=== PATIENT | female | born 1950 | race Caucasian/White ===

== ENCOUNTER 2017-02-09 22:46 | Inpatient (IN) | payer OTHER ==
[~2017-02-09] VITALS: Ht 147.3 cm; Wt 103.5 kg
--- NOTE | 2017-02-09 22:51 | History and Physical ---
History & Physical Date & Time of Service: Feb 09, 2017 at 22:51 . Chief Complaint: swelling left leg . Primary Care Physician: No Doctor, Assigned . History of Present Illness Source: patient, clinic records, hospital records 62-year-old female followed by Dr. Myrick. History of pulmonary embolism in 2013 associated with a prolonged illness at [facility] with peritonitis/sepsis secondary to perforated gastric ulcer. IVC filter was placed. Subsequently placed on warfarin Warfarin discontinued about 2 months ago because of concern about poor risk. 2 days prior to admission patient developed swelling of her left leg. She was evaluated in the ED at [facility] and thought to have a cellulitis. Antibiotics prescribed, but patient had not filled. Swelling of the left lower extremity worsened and she was seen in the ED at [facility] earlier today. Experiencing some discomfort of the leg, but not severe pain. She was found to have extensive DVT in the left lower extremity. Also found to have acute kidney injury. Referred to [facility] for further evaluation and management. . Past Medical/Surgical History Chronic and Resolved Medical Problems: (1) BMI 40.0-44.9, adult Status: Chronic (2) Chronic kidney disease (CKD), stage III (moderate) Status: Chronic (3) Degenerative arthritis of knee Status: Chronic (4) Dyslipidemia Status: Chronic (5) History of peritonitis Permanent Comment: [place] [facility], abscess Status: Chronic (6) Hypertension Status: Chronic (7) Hypothyroidism Status: Chronic (8) Pulmonary embolism Permanent Comment: 2013 during ICU illness Status: Chronic Surgical Problems: (1) Ileostomy status Status: Chronic (2) Status post exploratory laparotomy Permanent Comment: [facility] perforated gastric ulcer Status: Chronic (3) Status post insertion of inferior vena caval filter Permanent Comment: 2013 Status: Chronic . Family History FATHER Heart disease MOTHER Thyroid disease SON Cancer SON Stroke Social History Smoking Status: Never Smoker Alcohol Use: none Immunizations History of Influenza Vaccine: Yes Allergies Coded Allergies: Meperidine (Verified Allergy, Unknown, unknown, 02/10/17) Home Medications Scheduled Atorvastatin (Lipitor), 10 MG PO DAILY Buspirone Hcl (Buspirone Hcl), 10 MG PO TID Duloxetine Hcl (Cymbalta), 60 MG PO DAILY Ergocalciferol (Vitamin D 99761 Unit), 50,000 UNIT PO WK Fluticasone Propionate (Nasal) (Flonase Allergy Relief), 1 SPRAY NA DAILY Furosemide (Lasix), 40 MG PO DAILY Gabapentin (Neurontin), 0 PO UD Levothyroxine Sodium (Levothyroxine Sodium), 100 MCG PO DAILY Mirabegron (Myrbetriq Er), 25 MG PO DAILY Pantoprazole (Protonix), 40 MG PO BID Ranitidine Hcl (Zantac), 150 MG PO BID Scheduled PRN Acetaminophen Tab (Tylenol), 325 MG PO Q4 PRN for PRN for mild pain Loratadine (Bulk) (Loratadine), 10 MG PO DAILY PRN for as needed for congestion Lorazepam (Ativan), 0.5 MG PO DAILY PRN for Anxiety Ondansetron Hcl (Zofran), 8 MG PO TID PRN for Nausea Propranolol (Inderal), 10 MG PO BID PRN for Anxiety Tramadol (Ultram), 50 MG PO Q6H PRN for Pain Miscellaneous Medications Mometasone Furoate (Inhalation (Asmanex Hfa), INH Review of Systems Constitutional: No fever, No weight loss Eyes: No worsening of vision, No diplopia ENT: No nasal symptoms, No sore throat Respiratory: + dyspnea on exertion (chronic, unchanged), No cough Cardiovascular: + edema, No chest pain Abdomen: + problem reported (ileostomy), No pain, No nausea, No vomiting, No GI bleeding Musculoskeletal: + joint pain Genitourinary - Female: + urinary urgency, No dysuria, No hematuria Neurologic: + problem reported (occasional headache; ambulates with cane or walker- no falls) Endocrine: No excessive thirst, No excessive urination Hematologic / Lymphatic: + abnormal bleeding/bruising Integumentary: No new/changing skin lesions Physical Exam General Appearance: no apparent distress, + obese Head: normocephalic, atraumatic Eyes: PERRL, EOMI, sclerae normal (conjunctivae pink) ENT: hearing grossly normal, pharynx normal, + pertinent finding (dentition poor) Neck: supple, no adenopathy, thyroid normal, no JVD, trachea midline Respiratory/Chest: lungs clear, no respiratory distress, no accessory muscle use Cardiovascular: regular rate, rhythm, no edema, no JVD, no murmur, + abnormal peripheral pulses (diminished), + pertinent finding (1+ pretibial edema RLE, 3-4 + pretibial edema LLE; capillary refill right toes ~ 2 sec, left otes ~ 3 sec) Abdomen/GI: normal bowel sounds, non tender, soft, no organomegaly (exam limited), no pulsatile mass Extremities/Musculoskelatal: + pertinent finding (marked swelling of LLE with phlegmasia cerulea) Neurologic/Psych: insurance claim representative II-XII nml as tested (PERRL, EOMI; no facial palsy; no dysarthria), no motor/sensory deficits (motor exam limited, but grossly intact) , alert, normal mood/affect, normal reflexes (plantar reflexes downgoing), oriented x 3, + abnormal reflexes (patellar reflexes 1/2 bilat) Skin: warm/dry Lymphatic: no adenopathy (cervical) Diagnostics Laboratory Results Item Value Date Time Hemoglobin 11.6 g/dL L 02/09/172319 Hematocrit 35.6 % L 02/09/172319 White Blood Count 15.96 K/uL H 02/09/172319 Platelet Count 135 K/uL 02/09/172319 Prothrombin Time 10.7 SECONDS 02/09/172319 Prothromb Time International Ratio 1.0 02/09/172319 Activated Partial Thromboplast Time 24.3 SECONDS 02/09/172319 Partial Thromboplastin Ratio 0.9 02/09/172319 Sodium Level 136 mmol/L 02/09/172319 Potassium Level 4.2 mmol/L 02/09/172319 Chloride Level 103 mmol/L 02/09/17 232 Carbon Dioxide Level 20 mmol/L L 02/09/172319 Anion Gap 13.0 mmol/L H 02/09/17 232 Blood Urea Nitrogen 65 mg/dl H 02/09/17 2320 Creatinine 3.00 mg/dl H 02/09/17 232 Random Glucose 151 mg/dl H 02/09/17 232 Calcium Level 8.8 mg/dl 02/09/17 232 Magnesium Level 3.0 mg/dl H 02/09/17 232 Total Bilirubin 0.3 mg/dl 02/09/17 232 Aspartate Amino Transf (AST/SGOT) 11 U/L L 02/09/17 232 Alanine Aminotransferase (ALT/SGPT) 15 U/L 02/09/17 2320 Alkaline Phosphatase 115 U/L 02/09/17 2320 Total Protein 6.9 gm/dl 02/09/17 2320 Albumin 3.1 gm/dl L 02/09/17 2320 Globulin 3.8 gm/dl 02/09/17 2320 Diagnostic Radiology Venous duplex left lower extremity @ [facility]- extensive DVT. . Impression Assessment and Plan EXTENSIVE DVT LEFT LOWER EXTREMITY Prior history of DVT LLE and pulmonary embolism in setting of acute illness / ICU hospitalization in 2013. IVC filter placed. Subsequently placed on warfarin, but it was stopped about 2 months ago due to fall risk. Now with extensive swelling and discoloration of LLE, but no severe pain. Venous duplex showed extensive DVT. Initial therapy with IV heparin. Probably best to resume warfarin therapy. Patient was falling earlier in the year, but no falls now for several months. May possibly benefit from thrombolytic therapy- consult Vascular Surgery. ACUTE KIDNEY INJURY History CKD III. Serum creatinine now 3, compared to baseline of 1.4 on 12/03/16. Etiology of acute kidney injury uncertain. Check UA, FE Na, renal us, renal vein / IVC duplex. Takes furosemide PRN for edema- hold for now. Avoid potential nephrotoxins when able. Consult Nephrology. UTI UA in [facility] ED showed WBC's and bacteria. WBC elevated, possibly due to DVT. Afebrile. No dysuria or hematuria. Check repeat UA. Check urine cultures results from [facility] in 2-3 days. Will Rx with piperacillin / tazobactam pending more data. HISTORY PUD Continue ranitidine. HYPOTHYROIDISM Continue levothyroxine. VTE PROPHYLAXIS IV heparin for acute DVT. RESUSCITATION STATUS Discussed with patient. No living will. Full code. DISPOSITION Admitted to Telemetry Unit. Discharge disposition to be determined. Family Medicine follow-up with Dr. Myrick. . VTE Prophylaxis VTE Risk Assessment Done? Y/N: Yes Risk Level: High Given or contraindicated: Other Anticoagulation (IV heparin)
[2017-02-09 22:53] VITALS: BP 157/65; PULSE 83; TEMP 36.7; Ht 147.3 cm; Wt 103.5 kg
[2017-02-09] MEDS ORDERED: ATOR10TA88 PO (23:38)
[2017-02-09] MEDS ORDERED: PANT40TA PO (23:38)
[2017-02-09] MEDS ORDERED: MIRA100T PO (23:38)
[2017-02-09] MEDS ORDERED: LORA-741 PO (23:38)
[2017-02-09] MEDS ORDERED: LEVO100T7 PO (23:38)
[2017-02-09] MEDS ORDERED: MOME1AER5 INH (23:38)
[2017-02-09] MEDS ORDERED: LORAPOW16 PO (23:38)
[2017-02-09] MEDS ORDERED: DULO60CA44 PO (23:38)
[2017-02-09] MEDS ORDERED: ONDA8TAB6 PO (23:38)
[2017-02-09] MEDS ORDERED: PROP10TA7 PO (23:38)
[2017-02-09] MEDS ORDERED: GABA-112 PO (23:38)
[2017-02-09] MEDS ORDERED: FRS/40 PO (23:38)
[2017-02-09] MEDS ORDERED: BUSP-8 PO (23:38)
[2017-02-09] MEDS ORDERED: ERGO1TAB12 PO (23:38)
[2017-02-09] MEDS ORDERED: RANI150T3 PO (23:38)
[2017-02-09] MEDS ORDERED: FLUT0.15 (23:38)
[2017-02-09] MEDS ORDERED: ACET325T96 PO (23:38)
[2017-02-09] MEDS ORDERED: TRAM-10 PO (23:38)
[2017-02-09 23:39] LABS: HEMATOCRIT 35.6 % (37-47); MEAN CELL VOLUME 90.6 fL (80-100); MEAN CORPUSCULAR HEMOGLOBIN 29.5 pg (25-34); MEAN CORPUSCULAR HGB CONC 32.6 g/dl (32-36); MEAN PLATELET VOLUME 10.2 fL (7.4-10.4); PLATELET COUNT 135 K/uL (130-400); RED BLOOD COUNT 3.93 M/uL (4.2-5.4); WHITE BLOOD COUNT 15.96 K/uL (4.8-10.8)
[2017-02-09 23:48] LABS: PARTIAL THROMBOPLASTIN RATIO 0.9; PROTHROMBIN TIME (PATIENT) 10.7 SECONDS (9.0-12.0)
[2017-02-09 23:55] LABS: BUN/CREATININE RATIO 21.5 (10-20); CALCIUM 8.8 mg/dl (8.5-10.1); POTASSIUM 4.2 mmol/L (3.5-5.1)
[2017-02-09 23:58] LABS: ALB/GLOB RATIO 0.8 (0.9-2)
[2017-02-10] MEDS ORDERED: ERGO500037 PO (00:06)
[2017-02-10] MEDS ORDERED: HEPARIN IV BOLUS 5,000 UNIT in SYRINGE 0 ML IV ONE (02:15)
[2017-02-10] MEDS: HEPARIN 25,000 UNIT/500ML D5W 500 ML IV PRN (02:50)
[2017-02-10] MEDS: TRAMADOL HCL 50 MG TAB PO PRN ×2 (03:37→12:08)
[2017-02-10 04:17] VITALS: BP 146/79; PULSE 72; TEMP 36.5; O2SAT 96
[2017-02-10] MEDS: LEVOTHYROXINE 100 MCG TAB PO SCH (05:51)
[2017-02-10 07:35] VITALS: BP 133/75; PULSE 84; TEMP 36.2; O2SAT 97
[2017-02-10] MEDS: FLUTICASONE PROPIONATE NA SPR 16 GM BTL SCH (09:00)
[2017-02-10] MEDS: DULOXETINE HCL 60 MG CAP PO SCH (09:04)
[2017-02-10] MEDS: ATORVASTATIN 10 MG TAB PO SCH (09:04)
[2017-02-10] MEDS: MIRABEGRON ER 25 MG TAB PO SCH (09:05)
[2017-02-10] MEDS: GABAPENTIN 100 MG CAP PO SCH ×3 (09:05→20:39)
[2017-02-10] MEDS: PANTOprazole SOD 40 MG TAB PO SCH ×2 (09:06→20:39)
[2017-02-10] MEDS: RANITIDINE HCL 150 MG TAB PO SCH ×2 (09:06→20:39)
[2017-02-10 09:07] LABS: HEMATOCRIT 34.1 % (37-47); MEAN CELL VOLUME 90.7 fL (80-100); MEAN CORPUSCULAR HEMOGLOBIN 29.5 pg (25-34); MEAN CORPUSCULAR HGB CONC 32.6 g/dl (32-36); MEAN PLATELET VOLUME 10.1 fL (7.4-10.4); PLATELET COUNT 138 K/uL (130-400); RED BLOOD COUNT 3.76 M/uL (4.2-5.4); WHITE BLOOD COUNT 14.04 K/uL (4.8-10.8)
[2017-02-10] MEDS: LORAZEPAM 0.5 MG TAB PO PRN (09:08)
[2017-02-10 09:21] LABS: INR 1.1 (0.9-1.1); PROTHROMBIN TIME (PATIENT) 11.3 SECONDS (9.0-12.0)
[2017-02-10 09:31] LABS: PARTIAL THROMBOPLASTIN RATIO 2.6
[2017-02-10] MEDS ORDERED: PIPERACILL/TAZOBAC CONSULT ACTIVE PRN (09:45)
[2017-02-10 09:52] LABS: BUN/CREATININE RATIO 22.4 (10-20); CALCIUM 8.5 mg/dl (8.5-10.1); CREATININE 2.9 mg/dl (0.60-1.20); POTASSIUM 3.5 mmol/L (3.5-5.1)
[2017-02-10] MEDS ORDERED: PIPERACILL/TAZOBAC IV 4.5 GM in DEXTROSE 5% 100ML IV ONE (10:00)
[2017-02-10 11:24] VITALS: BP 151/83; PULSE 81; TEMP 36.8; O2SAT 98
[2017-02-10] MEDS: SODIUM CHLORIDE 0.9% 1000ML 1,000 ML IV SCH ×2 (11:25→19:33)
--- NOTE | 2017-02-10 11:28 | DIAGNOSTIC IMAGING REPORT ---
RENAL ULTRASOUND HISTORY: acute kidney injury COMPARISON: None. FINDINGS: Right kidney: 9.3 cm. No hydronephrosis. Moderate severe cortical atrophy. Normal cortical echogenicity. Left kidney: 9.8 cm. No hydronephrosis. Moderate severe cortical atrophy. Normal cortical echogenicity. Bladder: Bladder is decompressed by Johnston catheter. IMPRESSION: 1. No hydronephrosis. 2. Moderate to severe bilateral cortical renal atrophy. Electronically signed by: Sarthak Gee M.D. 02/10/2017 11:27 AM Dictated Date/Time: 02/10/2017 11:24 AM
--- NOTE | 2017-02-10 11:39 | NEPHROLOGY CONSULTATION ---
DATE OF CONSULTATION: 02/10/2017 ATTENDING OF RECORD: Dr. Owens. REASON FOR CONSULTATION: FARZANEH. HISTORY OF PRESENT ILLNESS: This is a 66-year-old female who follows in [place]. The patient's baseline creatinine is 1.4, last checked December 03 of this year, who has no diabetes and was on blood pressure medications in the past, but were stopped secondary to lightheadedness. The patient had a significant hospitalization in 2013, where she had a perforated gastric ulcer, pulmonary embolus and an IVC filter was placed and then started on long-term Coumadin. The patient though is not stable on her feet and the Coumadin was stopped about 2 months ago. The patient denies any smoking. No prolonged trips. The patient about 2 days ago noticed worsening swelling in the leg with some worsening pain and found to have a blood clot in her leg and acute kidney injury with creatinine of 3. This morning, this is down to 2.9. Secondary as a consequence of peptic ulcer disease, the patient ended up with a colostomy and still has high output from a colostomy. The patient has been eating and drinking well. Denies taking any ibuprofen, Motrin or Aleve. She is not a diabetic. Not taking any blood pressure medications. No recent antibiotics or recent illnesses or infection. She has been eating and drinking well, but does present with worsening blood clot and elevated creatinine. The patient is currently on a heparin drip. She did urinate x2 and is incontinent of urine and urine is dark. REVIEW OF SYSTEMS: No fevers or chills. No significant weight loss or weight gain. Ambulates with a walker. No itching. No chest pain. No shortness of breath. No nausea or vomiting. Has a colostomy with normal outputs. States she is urinating the same amount. Does have a history of an overactive bladder. No lightheadedness. Does have some balance issues and a fall risk since she is walking with a walker and is complaining of some pain with her left leg with some swelling and coolness to touch. PAST MEDICAL HISTORY: CKD stage III with baseline creatinine of 1.4, hyperlipidemia, history of PE in the past with an IVC filter placed, a history of a perforated gastric ulcer with colostomy now, hypertension not on any blood pressure medications secondary to lightheadedness and fall risk, and hypothyroidism. PAST SURGICAL HISTORY: Colostomy, exploratory laparotomy for the perforated gastric ulcer, and IVC filter placement. FAMILY HISTORY: Significant for heart disease. SOCIAL HISTORY: No smoking, no alcohol, and no drugs. Lives at home. HOME MEDICATIONS: Significant for Lasix 40 mg a day. CURRENT MEDICATIONS: Zosyn as directed by pharmacy, Lipitor 10 mg daily, Cymbalta 60 mg daily, Neurontin 100 mg p.o. t.i.d., mirabegron 25 mg daily, Protonix 40 mg twice a day, Zantac 150 mg twice a day, BuSpar 10 mg 3 times daily, Synthroid 100 mcg daily, and heparin drip. PHYSICAL EXAMINATION: VITAL SIGNS: Temperature 36.2, pulse 84, respirations 19, blood pressure 133/75, and satting 97% on 2 liters. GENERAL: Awake, alert, and oriented x3, obese. EYES: No scleral icterus. ENT: Moist mucous membranes. NECK: Supple. PULMONARY: Clear to auscultation. CARDIAC: Regular rate and rhythm. ABDOMEN: Positive colostomy. Soft, nontender, and nondistended. EXTREMITIES: Mild edema in the right leg. Left leg cool to touch, discolored and bluish with +2 edema. NEUROLOGICALLY: Nonfocal. Walks with a walker. DERMATOLOGIC: No ulcers noted. LABORATORIES: White count 14, H&H 11 and 34, and platelet count 138. Sodium level is 134, potassium 3.5, chloride is 103, bicarb is 20, BUN 65, creatinine is 2.9, glucose 175, and calcium is 8.5. INR is 1.1. UA is pending. Urine culture is pending. ASSESSMENT AND PLAN: Acute kidney injury in the setting of an extensive deep venous thrombosis in the left leg. Question if the clot extends up to the renal supply. Vascular surgery has been consulted. May need thrombolysis. I would like to place a Johnston to better assess her I's and O's and start patient on normal saline at 125 mL an hour, monitor her volume status closely, looking for signs of fluid overload. The patient denies any NSAIDs. Blood pressure is stable with no signs of hypotension. No recent contrast. Hopefully, creatinine starts to improve with hydration. Currently on heparin and does have an IVC filter in place. We will check a renal ultrasound and renal vascular scan looking for obstruction of blood flow to the kidneys and once again have consulted vascular surgery. No indication for emergent dialysis at this time. Continue hydration and we will follow along. I appreciate the consultation. YAIMA
--- NOTE | 2017-02-10 11:45 | Surgery Consultation ---
Consultation Date of Service Feb 10, 2017. (Gabriella Meyer, KINGSLEY) Chief Complaint LLE extensive DVT (Gabriella Meyer, KINGSLEY) History of Present Illness The patient is a 66 year old female with hx of DVT and IVC filter insertion in 2013, admitted currently with FARZANEH and extensive LLE DVT, seen in consultation today for LLE DVT and possible thrombolytics. Pt states she developed a DVT in unknown extremity in 2013 after having surgery and had filter insertion d/t unsafe to be on anticoagulation at the time. Was subsequently started on coumadin, which was stopped a few months ago d/t instability at home and falls. States she has home nurses who told her to go to hospital to be checked d/t the edema in LLE. Admits mild burning/aching discomfort in LLE. Denies numbness or pain in toes. Denies WEBBER, fever, chills, chest pain, SOB, abd pain, N/V, rest pain, claudication other complaints. Per reports, pt with extensive DVT of LLE, pt states she was told it is in her groin. Pt states she has known about some mild 'kidney problems," but has never seen a chicken hanger. (Gabriella Meyer, KINGSLEY) Vitals Vital Signs Past 12 Hours Date Time Temp Pulse Resp B/P (MAP) Pulse Ox O2 Delivery O2 Flow Rate FiO2 02/10/17 11:24 36.8 81 18 151/83 (105) 98 2.0 02/10/17 08:00 Nasal Cannula 2.0 02/10/17 07:35 36.2 84 19 133/75 (94) 97 Nasal Cannula 2.0 02/10/17 04:17 36.5 72 20 146/79 (101) 96 Nasal Cannula 2.0 02/10/17 04:00 Room Air 02/10/17 00:00 Room Air (Gabriella Meyer, KINGSLEY) Allergies Coded Allergies: Meperidine (Verified Allergy, Unknown, unknown, 02/10/17) Home Medications Scheduled Atorvastatin (Lipitor), 10 MG PO DAILY Buspirone Hcl (Buspirone Hcl), 10 MG PO TID Duloxetine Hcl (Cymbalta), 60 MG PO DAILY Ergocalciferol (Vitamin D 16262 Unit), 50,000 UNIT PO WK Fluticasone Propionate (Nasal) (Flonase Allergy Relief), 1 SPRAY NA DAILY Furosemide (Lasix), 40 MG PO DAILY Gabapentin (Neurontin), 0 PO UD Levothyroxine Sodium (Levothyroxine Sodium), 100 MCG PO DAILY Mirabegron (Myrbetriq Er), 25 MG PO DAILY Pantoprazole (Protonix), 40 MG PO BID Ranitidine Hcl (Zantac), 150 MG PO BID Scheduled PRN Acetaminophen Tab (Tylenol), 325 MG PO Q4 PRN for PRN for mild pain Loratadine (Bulk) (Loratadine), 10 MG PO DAILY PRN for as needed for congestion Lorazepam (Ativan), 0.5 MG PO DAILY PRN for Anxiety Ondansetron Hcl (Zofran), 8 MG PO TID PRN for Nausea Propranolol (Inderal), 10 MG PO BID PRN for Anxiety Tramadol (Ultram), 50 MG PO Q6H PRN for Pain Miscellaneous Medications Mometasone Furoate (Inhalation (Asmanex Hfa), INH Problem List Medical Problems: (1) BMI 40.0-44.9, adult (2) Chronic kidney disease (CKD), stage III (moderate) (3) Degenerative arthritis of knee (4) Dyslipidemia (5) History of peritonitis (6) Hypertension (7) Hypothyroidism (8) Pulmonary embolism Surgical Problems: (1) Ileostomy status (2) Status post exploratory laparotomy (3) Status post insertion of inferior vena caval filter (Gabriella Meyer PA-C) Surgical / Medical History Hx Cardiac Surgery: No Hx Abdominal Surgery: Yes (Colostomy r/t ruptured gastric ulcer) Hx Cancer Surgery: No Hx Thoracic Surgery: No Hx Orthopedic: No Hx Urinary Tract Surgery: No Past Medical/Surgical History: High Cholesterol, Hypertension, Kidney Disease (Gabriella Meyer, BENEDICTC) Family History Cancer SON Heart disease FATHER Stroke SON Thyroid disease MOTHER (Gabriella Meyer PA-C) Cancer SON Heart disease FATHER Stroke SON Thyroid disease MOTHER (Jayme Peoples M.D.) Social History Smoking Status: Never Smoker Hx Alcohol Use - Type & Amnt: No Hx Substance Use -Type & Amnt: No (Gabriella Meyer PA-C) Review of Systems Constitutional: No chills, No fever, No malaise Skin: + change in color Eyes: No visual changes ENMT: No sore throat Respiratory: No cough, No BUTLER, No hemoptysis, No short of breath Cardiovascular: + edema, No chest pain, No palpitations, No syncope, No intermittent claudication Gastrointestinal: No abdominal pain, No nausea, No vomiting Genitourinary - Female: No dysuria, No hematuria Musculoskeletal: No back pain Neurologic: No dizziness, No headache, No lethargy, No numbness, No tingling ( Gabriella Meyer PA-C) Physical Exam Constitutional: General Apperance: well-nourished, well-developed, obese Level of Distress: NAD, chronically ill Psychiatric: Mental Status: active & alert, normal mood, normal affect Orientation: oriented except where noted, to time, to place, to person Memory: recent memory normal, remote memory normal Head: normocephalic, atraumatic Eyes: EOM: EOMI ENMT: normal ENT inspection, hearing grossly normal Neck: supple, trachea midline Lungs: Respiratory effort: no dyspnea Auscultation: no rales/crackles, no rhonchi, decreased breath sounds Cardiovascular: Apical Impulse: not displaced Heart Auscultation: RRR, no rubs, no gallops Peripheral Pulses: Pulses: full and equal, in all extremities except if noted Bruits: none appreciated Carotid Pulse: normal on the left, normal on the right Brachial Pulses: normal on the left, normal on the right Femoral Pulse: normal on the left, normal on the right Posterior Tibialis Pulse: decreased on the right, pertinent finding ( biphasic with doppler LLE) Dorsalis Pedis Pulse: decreased on the right, pertinent finding (biphasic with doppler LLE. brisk cap refill) Abdomen: Bowel Sounds: normal Inspection & Palpation: soft, non-distended, no tenderness, guarding & rebound Musculoskeletal: normal strength (5/5 throughout), normal tone Extremities: Upper Right: no cyanosis, no edema, no varicosities Upper Left: no cyanosis, no edema, no varicosities Lower Right: no cyanosis, no varicosities, edema (mild) Lower Left: no cyanosis, no palpable cord, edema (+4 pitting lower leg, softer edema thigh. Entire leg with purplish tint compared to RLE. temp normal, but toes cool. + brisk cap refill) Neurologic: Cranial Nerves: grossly intact Sensation: grossly intact (Gabriella Meyer, PA-C) Assessment and Plan ASSESSMENT and PLAN: DVT LLE Hx of IVC filter insertion Pt discussed with Dr Peoples, recommend anticoagulation if safe per medicine. Does not recommend thrombolysis at this time, and D/T acute kidney injury, unable to perform venography at present. Please call if needed. (Gabriella Meyer, PA-C) Patient was seen, examined, and chart reviewed. Agree with exam and treatment plan of the Vascular PA. Thank you very much for letting me participate in the care of this patient. (Jayme Peoples M.D.)
--- NOTE | 2017-02-10 12:19 | DIAGNOSTIC IMAGING REPORT ---
DUPLEX AORTA/IVC/ILIACS LTD CLINICAL HISTORY: 66 years-old Female presenting with DVT LLE, IVC filter, acute kidney injury. TECHNIQUE: Real-time grayscale ultrasound imaging of the inferior vena cava was performed. Color and spectral Doppler were also performed. COMPARISON: None. FINDINGS: The inferior vena cava is patent along the visualized portions. The IVC has a peak velocity of 32 cm/s in the upper portion, 21 cm/s in the midportion where there is an inferior vena cava filter, and is not visualized in the distal portion. The right renal vein is patent with a peak velocity of 24 cm/s. The left renal vein is also patent with a peak velocity of 28 cm/s. The examination was limited due to bowel gas. IMPRESSION: 1. IVC filter in place. IVC is patent at and above the level of the IVC filter. The distal IVC is poorly visualized due to bowel gas. Electronically signed by: Samuel Aguilar M.D. 02/10/2017 12:18 PM Dictated Date/Time: 02/10/2017 12:16 PM
--- NOTE | 2017-02-10 13:56 | DIAGNOSTIC IMAGING REPORT ---
CHEST ONE VIEW PORTABLE CLINICAL HISTORY: DVT LLE pain COMPARISON STUDY: No previous studies for comparison. FINDINGS: The bones soft tissues and hemidiaphragms are normal. The cardiomediastinal silhouette is normal. The lungs are clear. The pulmonary vasculature is normal. Mediastinal fullness superiorly felt to be secondary to the AP semierect film technique IMPRESSION: No acute process. The above report was generated using voice recognition software. It may contain grammatical, syntax or spelling errors. Electronically signed by: Santos Herrera M.D. 02/10/2017 1:55 PM Dictated Date/Time: 02/10/2017 1:54 PM
[2017-02-10 14:28] LABS: URINE APPEARANCE CLOUDY (CLEAR); URINE BILIRUBIN NEG (NEG); URINE COLOR YELLOW; URINE EPITHELIAL CELL AUTO >30 /lpf (0-5); URINE NITRITE NEG (NEG); URINE PH 5.5 (4.5-7.5); UROBILINOGEN NEG (NEG)
[2017-02-10 14:33] LABS: MANUAL MICROSCOPIC REQUIRED? NO; REVIEW REQ? YES
[2017-02-10 14:53] LABS: URINE PATH CASTS 1-5 GRANULAR CASTS /lpf (0)
[2017-02-10 15:19] VITALS: BP 159/69; PULSE 84; TEMP 36.7; O2SAT 97
[2017-02-10] MEDS: HYDROmorphone INJ 1 MG/ML SYR IV PRN (16:24)
--- NOTE | 2017-02-10 17:27 | Progress Note ---
Internal Med Progress Note Date of Service: Feb 10, 2017. Provider Documentation: SUBJECTIVE: The patient was seen and examined Admitted with left leg swelling and pain Denies any CP,Palpitation,SOB OBJECTIVE: Vital Signs-as noted below Exam: General-No distress Eyes-Normal ENT-Normal Neck-supple Lungs-Clear to ausucltate bilaterally Heart-Regular,no murmur appreciated Abdomen-Benign,no masses,bowel sound present Extremities-Bilateral Legs swelling,Left more than righ Left lower leg is bluish color but has palpable pulses Right Midshin has a small hematoma and that has been getting bigger Neuro-AAOx3 Lab data as noted below. ASSESSMENT & PLAN: EXTENSIVE DVT LEFT LOWER EXTREMITY Prior history of DVT LLE and pulmonary embolism in setting of acute illness / ICU hospitalization in 2013. IVC filter placed at that time Subsequently placed on warfarin, but it was stopped about 2 months ago due to fall risk. Now with extensive swelling and discoloration of LLE, but no severe pain. Venous duplex showed extensive DVT. Initial therapy with IV heparin and will need to have Coumadin therapy Patient was falling earlier in the year, but no falls now for several months. Vascular Surgery consulted -appreciate input Dusky discoloration of the left lower extremity Not cold to touch Doppler exam showed good flow Vascular Surgery consulted-observe Right Mid Leg Hematoma Was like the size of a quarter and gradually [id number] Increasing Pain Area marked and Heparin is on hold Less chance of PE with the IVC filter Discussed with the patient Resume heparin later ACUTE KIDNEY INJURY History CKD III. Serum creatinine now 3, compared to baseline of 1.4 on 12/03/16. Etiology of acute kidney injury uncertain. Check UA, FE Na, renal us, renal vein / IVC duplex. Takes furosemide PRN for edema- on Hold now Avoid potential nephrotoxins when able. Consult Nephrology-appreciate Input . Possible UTI UA in [facility] ED showed WBC's and bacteria. Afebrile. No dysuria or hematuria. Check repeat UA. Check urine cultures results from [facility] in 2-3 days. Will Rx with piperacillin / tazobactam pending more data. HISTORY PUD Continue ranitidine. HYPOTHYROIDISM Continue levothyroxine. VTE PROPHYLAXIS IV heparin for acute DVT. RESUSCITATION STATUS Discussed with patient. No living will. Full code. DISPOSITION Admitted to Telemetry Unit. Discharge disposition to be determined. Family Medicine follow-up with Dr. Myrick. Vital Signs: Date Time Temp Pulse Resp B/P (MAP) Pulse Ox O2 Delivery O2 Flow Rate FiO2 02/10/17 15:19 36.7 84 20 159/69 (99) 97 Nasal Cannula 2.0 02/10/17 12:00 Nasal Cannula 2.0 02/10/17 11:24 36.8 81 18 151/83 (105) 98 2.0 02/10/17 08:00 Nasal Cannula 2.0 02/10/17 07:35 36.2 84 19 133/75 (94) 97 Nasal Cannula 2.0 02/10/17 04:17 36.5 72 20 146/79 (101) 96 Nasal Cannula 2.0 02/10/17 04:00 Room Air 02/10/17 00:00 Room Air 02/09/17 22:53 36.7 83 22 157/65 Nasal Cannula 2.0 Lab Results: Results Past 24 Hours Test 02/09/17 23:20 02/10/17 08:49 02/10/17 10:20 Range/Units White Blood Count 15.96 14.04 4.8-10.8 K/uL Red Blood Count 3.93 3.76 4.2-5.4 M/uL Hemoglobin 11.6 11.1 12.0-16.0 g/dL Hematocrit 35.6 34.1 37-47 % Mean Corpuscular Volume 90.6 90.7 80-100 fL Mean Corpuscular Hemoglobin 29.5 29.5 25-34 pg Mean Corpuscular Hemoglobin Concent 32.6 32.6 32-36 g/dl RDW Standard Deviation 49.7 50.2 36.4-46.3 fL RDW Coefficient of Variation 15.0 15.1 11.5-14.5 % Platelet Count 135 138 130-400 K/uL Mean Platelet Volume 10.2 10.1 7.4-10.4 fL Nucleated RBC Absolute Count (auto) 0.02 0.02 0-0 K/uL Nucleated Red Blood Cells % 0.1 0.2 % Prothrombin Time 10.7 11.3 9.0-12.0 SECONDS Prothromb Time International Ratio 1.0 1.1 0.9-1.1 Activated Partial Thromboplast Time 24.3 67.5 21.0-31.0 SECONDS Partial Thromboplastin Ratio 0.9 2.6 Sodium Level 136 134 136-145 mmol/L Potassium Level 4.2 3.5 3.5-5.1 mmol/L Chloride Level 103 103 98-107 mmol/L Carbon Dioxide Level 20 20 21-32 mmol/L Anion Gap 13.0 11.0 3-11 mmol/L Blood Urea Nitrogen 65 65 7-18 mg/dl Creatinine 3.00 2.90 0.60-1.20 mg/dl Est Creatinine Clear Calc Drug Dose 17.3 17.9 ml/min Estimated GFR () 17.8 18.5 Estimated GFR (Non- 15.3 16.0 BUN/Creatinine Ratio 21.5 22.4 10-20 Random Glucose 151 175 70-99 mg/dl Calcium Level 8.8 8.5 8.5-10.1 mg/dl Magnesium Level 3.0 1.8-2.4 mg/dl Total Bilirubin 0.3 0.2-1 mg/dl Aspartate Amino Transf (AST/SGOT) 11 15-37 U/L Alanine Aminotransferase (ALT/SGPT) 15 12-78 U/L Alkaline Phosphatase 115 45-117 U/L Total Protein 6.9 6.4-8.2 gm/dl Albumin 3.1 3.4-5.0 gm/dl Globulin 3.8 2.5-4.0 gm/dl Albumin/Globulin Ratio 0.8 0.9-2 Urine Color YELLOW Urine Appearance CLOUDY CLEAR Urine pH 5.5 4.5-7.5 Urine Specific [place] 1.020 1.000-1.030 Urine Protein 1+ NEG Urine Glucose (UA) NEG NEG Urine Ketones NEG NEG Urine Occult Blood 1+ NEG Urine Nitrite NEG NEG Urine Bilirubin NEG NEG Urine Urobilinogen NEG NEG Urine Leukocyte Esterase MODERATE NEG Urine WBC (Auto) >30 0-5 /hpf Urine RBC (Auto) 0-4 0-4 /hpf Urine Hyaline Casts (Auto) 5-10 0-5 /lpf Urine Epithelial Cells (Auto) >30 0-5 /lpf Urine Bacteria (Auto) NEG NEG Urine Renal Epithelial Cells 5-10 0-5 /lpf Urine Pathogenic Casts 1-5 GRANULAR CASTS 0 /lpf Urine Yeast (Auto) NONE PRSENT Urine Random Creatinine 160.0 mg/dl Urine Random Sodium 5 mEq/L Microbiology Results 02/10/17 Urine Culture, Ordered Pending
[2017-02-10 18:43] VITALS: BP 166/107; PULSE 96; TEMP 36.5; O2SAT 96
[2017-02-10] MEDS: PIPERACILL/TAZOBAC IV 4.5 GM in DEXTROSE 5% 100ML 100 ML IV SCH (20:39)
[2017-02-10 23:51] VITALS: BP 148/91; PULSE 87; TEMP 36.5; O2SAT 98
[2017-02-11] MEDS: ACETAMINOPHEN 500 MG TAB PO PRN ×2 (00:57→12:00)
[2017-02-11] MEDS: SODIUM CHLORIDE 0.9% 1000ML 1,000 ML IV SCH ×3 (03:39→18:52)
[2017-02-11 03:42] VITALS: BP 133/79; PULSE 78; TEMP 36.6; O2SAT 98
[2017-02-11] MEDS: LEVOTHYROXINE 100 MCG TAB PO SCH (06:19)
[2017-02-11 07:23] VITALS: BP 135/70; PULSE 90; TEMP 36.5; O2SAT 98
--- NOTE | 2017-02-11 08:55 | Nephrology Progress Note ---
Nephrology Progress Note Date of Service: Feb 11, 2017. Subjective 66 yo female seen for sarthak/dvt in the lower extremity. has walker catheter in place and urinating well with clear urine. pt with colostomy. pt feels her swelling in the left leg is better and able to move her foot better. on heparin drip. tolerating iv fluids. no sob. appetite is good. Objective Date Time Temp Pulse Resp B/P (MAP) Pulse Ox O2 Delivery O2 Flow Rate FiO2 02/11/17 07:23 36.5 90 14 135/70 (91) 98 02/11/17 04:00 Nasal Cannula 2.0 02/11/17 03:42 36.6 78 18 133/79 (97) 98 Nasal Cannula 2.0 02/11/17 00:00 Nasal Cannula 2.0 02/10/17 23:51 36.5 87 18 148/91 (110) 98 Nasal Cannula 2.0 02/10/17 20:00 Nasal Cannula 2.0 02/10/17 18:43 36.5 96 18 166/107 (126) 96 Nasal Cannula 2.0 02/10/17 16:00 Nasal Cannula 2.0 02/10/17 15:19 36.7 84 20 159/69 (99) 97 Nasal Cannula 2.0 02/10/17 12:00 Nasal Cannula 2.0 02/10/17 11:24 36.8 81 18 151/83 (105) 98 2.0 Physical Exam: General-aaox3 Eyes-no scleral icterus ENT-mmm Neck-supple Lungs-cta, very slight end expiratory wheeze on left base Heart-rrr Abdomen-bs+ s/nt/+colostomy Extremities-left foot warm, less blue, swelling improving, right leg wrapped from ruptured blister secondary to trauma Neuro-nonfocal Current Inpatient Medications Medications (Trade) Dose Ordered Sig/Rashid Route Start Time Stop Time Status Last Admin Dose Admin Heparin Sodium/ Dextrose 500 ml @ 23 mls/hr [id number] PRN IV 02/10/17 02:15 03/12/17 02:14 Future Hold 02/10/17 02:50 23 MLS/HR Atorvastatin Calcium (Lipitor Tab) 10 mg DAILY PO 02/10/17 09:00 03/12/17 08:59 02/10/17 09:04 10 MG Duloxetine HCl (Cymbalta Cap) 60 mg DAILY PO 02/10/17 09:00 03/12/17 08:59 02/10/17 09:04 60 MG Fluticasone Propionate (Flonase Nasal [place]) 1 sprays DAILY NA 02/10/17 09:00 03/12/17 08:59 Gabapentin (Neurontin Cap) 100 mg TID PO 02/10/17 09:00 03/12/17 08:59 02/10/17 20:39 100 MG Levothyroxine Sodium (Synthroid Tab) 100 mcg DAILYBB PO 02/10/17 06:00 03/12/17 05:59 02/11/17 06:19 100 MCG Lorazepam (Ativan Tab) 0.5 mg TID PRN PO 02/10/17 03:30 03/12/17 03:29 02/10/17 09:08 0.5 MG Mirabegron (Myrbetriq Er) 25 mg DAILY PO 02/10/17 09:00 03/12/17 08:59 02/10/17 09:05 25 MG Ondansetron HCl (Zofran Tab) 8 mg TID PRN PO 02/10/17 03:30 03/12/17 03:29 Pantoprazole Sodium (Protonix Tab) 40 mg BID PO 02/10/17 09:00 03/12/17 08:59 02/10/17 20:39 40 MG Ranitidine HCl (zANTac TAB) 150 mg BID PO 02/10/17 09:00 03/12/17 08:59 02/10/17 20:39 150 MG Tramadol HCl (Ultram Tab) 50 mg Q6H PRN PO 02/10/17 03:30 03/12/17 03:29 02/10/17 12:08 50 MG Buspirone HCl (Buspar Tab) 10 mg TID PO 02/10/17 09:00 03/12/17 08:59 02/10/17 20:39 10 MG Acetaminophen (Tylenol Tab) 1,000 mg Q8 PRN PO 02/10/17 03:30 03/12/17 03:29 02/11/17 00:57 1,000 MG Piperacillin Sod/ Tazobactam Sod 4.5 gm/Dextrose 120 ml @ 30 mls/hr Q12H IV 02/10/17 20:00 02/15/17 19:59 02/10/17 20:39 30 MLS/HR Piperacillin Sod/ Tazobactam Sod (Consult) 1 ea UD PRN N/A 02/10/17 09:45 03/12/17 09:44 Sodium Chloride 1,000 ml @ 125 mls/hr Q8H IV 02/10/17 10:00 03/12/17 09:59 02/11/17 03:39 125 MLS/HR Hydromorphone HCl (Dilaudid Inj) 1 mg Q6H PRN IV 02/10/17 16:00 02/24/17 15:59 02/10/17 16:24 1 MG Last 24 Hours Test 02/10/17 10:20 02/11/17 07:31 02/11/17 08:40 Urine Color YELLOW Urine Appearance CLOUDY Urine pH 5.5 Urine Specific [place] 1.020 Urine Protein 1+ Urine Glucose (UA) NEG Urine Ketones NEG Urine Occult Blood 1+ Urine Nitrite NEG Urine Bilirubin NEG Urine Urobilinogen NEG Urine Leukocyte Esterase MODERATE Urine WBC (Auto) >30 /hpf Urine RBC (Auto) 0-4 /hpf Urine Hyaline Casts (Auto) 5-10 /lpf Urine Epithelial Cells (Auto) >30 /lpf Urine Bacteria (Auto) NEG Urine Renal Epithelial Cells 5-10 /lpf Urine Pathogenic Casts 1-5 GRANULAR CASTS /lpf Urine Yeast (Auto) Urine Random Creatinine 160.0 mg/dl Urine Random Sodium 5 mEq/L Assessment & Plan [id number]-presented with dvt-renal us with signs of medical renal disease but no hydro-renal veins are patent. hoping creatinine improves today compared to yesterday and tolerating fluids well and urinating better. continue current iv fluids.
[2017-02-11] MEDS: FLUTICASONE PROPIONATE NA SPR 16 GM BTL SCH (09:00)
[2017-02-11] MEDS: PIPERACILL/TAZOBAC IV 4.5 GM in DEXTROSE 5% 100ML 100 ML IV SCH (09:09)
[2017-02-11] MEDS: DULOXETINE HCL 60 MG CAP PO SCH (09:10)
[2017-02-11] MEDS: ATORVASTATIN 10 MG TAB PO SCH (09:10)
[2017-02-11] MEDS: GABAPENTIN 100 MG CAP PO SCH ×3 (09:11→20:36)
[2017-02-11] MEDS: MIRABEGRON ER 25 MG TAB PO SCH (09:11)
[2017-02-11] MEDS: PANTOprazole SOD 40 MG TAB PO SCH ×2 (09:12→20:36)
[2017-02-11] MEDS: RANITIDINE HCL 150 MG TAB PO SCH ×2 (09:12→20:36)
[2017-02-11 09:26] LABS: PARTIAL THROMBOPLASTIN RATIO 0.7
[2017-02-11 09:47] LABS: BUN/CREATININE RATIO 23.1 (10-20); CALCIUM 8.1 mg/dl (8.5-10.1); CREATININE 2.3 mg/dl (0.60-1.20); POTASSIUM 3.8 mmol/L (3.5-5.1)
[2017-02-11] MEDS: HEPARIN 25,000 UNIT/500ML D5W 500 ML IV PRN ×2 (10:00→17:07)
[2017-02-11 11:22] VITALS: BP 155/81; PULSE 96; TEMP 36.7; O2SAT 97
--- NOTE | 2017-02-11 13:20 | Progress Note ---
Internal Med Progress Note Date of Service: Feb 11, 2017. Provider Documentation: SUBJECTIVE: The patient was seen and examined Admitted with left leg swelling and pain Denies any CP,Palpitation,SOB Has had the Hematoma over midshin on right ruptured yesterday The area was pressure bandaged and kept Heparin on hold No more bleeding OBJECTIVE: Vital Signs-as noted below Exam: General-No distress Eyes-Normal ENT-Normal Neck-supple Lungs-Clear to ausucltate bilaterally Heart-Regular,no murmur appreciated Abdomen-Benign,no masses,bowel sound present Extremities-Bilateral Legs swelling,Left more than right-swelling and discoloration are better on left side Ruptured hematoma over midshin-no more bleeding noted Neuro-AAOx3 Lab data as noted below. ASSESSMENT & PLAN: EXTENSIVE DVT LEFT LOWER EXTREMITY Prior history of DVT LLE and pulmonary embolism in setting of acute illness / ICU hospitalization in 2013. IVC filter placed at that time Subsequently placed on warfarin, but it was stopped about 2 months ago due to fall risk. Now with extensive swelling and discoloration of LLE, but no severe pain. Venous duplex showed extensive DVT. Initial therapy with IV heparin and will need to have Coumadin therapy Patient was falling earlier in the year, but no falls now for several months. Vascular Surgery consulted -appreciate input .no intervention now Dusky discoloration of the left lower extremity Not cold to touch Doppler exam showed good flow Vascular Surgery consulted-observe Left leg swelling and discoloration improved Denies any symptoms Right Mid Leg Hematoma Ruptures yesterday Reasonable amount of Altered blood drained Heparin was on hold NO more bleeding this AM Heparin restarted ACUTE KIDNEY INJURY History CKD III. Serum creatinine now 3, compared to baseline of 1.4 on 12/03/16. Etiology of acute kidney injury uncertain. Check UA, FE Na, renal us, renal vein / IVC duplex. Takes furosemide PRN for edema- on Hold now Avoid potential nephrotoxins when able. Consult Nephrology-appreciate Input . Possible UTI UA in [facility] ED showed WBC's and bacteria. Afebrile. No dysuria or hematuria. Check repeat UA-negative . Will Rx with piperacillin / tazobactam pending more data. No Cultures were done in [facility] D/C Zosyn and give Ceftriaxone for a total of 5 days HISTORY PUD Continue ranitidine. HYPOTHYROIDISM Continue levothyroxine. VTE PROPHYLAXIS IV heparin for acute DVT. RESUSCITATION STATUS Discussed with patient. No living will. Full code. DISPOSITION Admitted to Telemetry Unit. Discharge disposition to be determined. Family Medicine follow-up with Dr. Myrick. Vital Signs: Date Time Temp Pulse Resp B/P (MAP) Pulse Ox O2 Delivery O2 Flow Rate FiO2 02/11/17 13:23 Nasal Cannula 2.0 02/11/17 12:00 Nasal Cannula 2.0 02/11/17 11:22 36.7 96 12 155/81 (105) 97 Nasal Cannula 2.0 02/11/17 08:37 Nasal Cannula 2.0 02/11/17 08:00 Nasal Cannula 2.0 02/11/17 07:23 36.5 90 14 135/70 (91) 98 02/11/17 04:00 Nasal Cannula 2.0 02/11/17 03:42 36.6 78 18 133/79 (97) 98 Nasal Cannula 2.0 02/11/17 00:00 Nasal Cannula 2.0 02/10/17 23:51 36.5 87 18 148/91 (110) 98 Nasal Cannula 2.0 02/10/17 20:00 Nasal Cannula 2.0 02/10/17 18:43 36.5 96 18 166/107 (126) 96 Nasal Cannula 2.0 02/10/17 16:00 Nasal Cannula 2.0 02/10/17 15:19 36.7 84 20 159/69 (99) 97 Nasal Cannula 2.0 Lab Results: Results Past 24 Hours Test 02/11/17 07:31 02/11/17 09:18 Range/Units Activated Partial Thromboplast Time 18.9 21.0-31.0 SECONDS Partial Thromboplastin Ratio 0.7 Sodium Level 137 136-145 mmol/L Potassium Level 3.8 3.5-5.1 mmol/L Chloride Level 108 98-107 mmol/L Carbon Dioxide Level 20 21-32 mmol/L Anion Gap 9.0 3-11 mmol/L Blood Urea Nitrogen 53 7-18 mg/dl Creatinine 2.30 0.60-1.20 mg/dl Est Creatinine Clear Calc Drug Dose 23.0 ml/min Estimated GFR () 24.5 Estimated GFR (Non- 21.1 BUN/Creatinine Ratio 23.1 10-20 Random Glucose 119 70-99 mg/dl Calcium Level 8.1 8.5-10.1 mg/dl
[2017-02-11 15:03] VITALS: BP 136/73; PULSE 88; TEMP 36.7; O2SAT 97
[2017-02-11] MEDS: CEFTRIAXONE SOD INJ 1,000 MG in DEXTROSE 5% 50ML 50 ML IV SCH (15:08)
[2017-02-11 16:01] LABS: PARTIAL THROMBOPLASTIN RATIO 1.1
[2017-02-11] MEDS: WARFARIN SOD 5 MG TAB PO SCH (16:01)
[2017-02-11] MEDS ORDERED: HEPARIN IV BOLUS 5,000 UNIT in SYRINGE 0 ML IV ONE (17:30)
[2017-02-11 18:45] VITALS: BP 152/76; PULSE 89; TEMP 37; O2SAT 98
[2017-02-11 23:04] VITALS: BP 154/77; PULSE 80; TEMP 37.2; O2SAT 98
[2017-02-12 00:55] LABS: PARTIAL THROMBOPLASTIN RATIO 1.5
[2017-02-12] MEDS: SODIUM CHLORIDE 0.9% 1000ML 1,000 ML IV SCH ×2 (01:31→12:21)
[2017-02-12] MEDS: TRAMADOL HCL 50 MG TAB PO PRN (01:31)
[2017-02-12] MEDS ORDERED: HEPARIN IV BOLUS 5,000 UNIT in SYRINGE 0 ML IV ONE (02:45)
[2017-02-12] MEDS: HEPARIN 25,000 UNIT/500ML D5W 500 ML IV PRN ×3 (02:53→17:18)
[2017-02-12 04:31] VITALS: BP 163/79; PULSE 83; TEMP 37; O2SAT 97
[2017-02-12] MEDS: LEVOTHYROXINE 100 MCG TAB PO SCH (06:08)
--- NOTE | 2017-02-12 06:24 | Nephrology Progress Note ---
Nephrology Progress Note Date of Service: Feb 12, 2017. Subjective 66 yo female seen for sarthak/dvt in the lower extremity. pt urinating well. pt able to move her foot better and swelling has improved. pt though has been having 7/10 pain and cool toes. no sob. tolerating fluids well. Objective Date Time Temp Pulse Resp B/P (MAP) Pulse Ox O2 Delivery O2 Flow Rate FiO2 02/12/17 04:31 37.0 83 20 163/79 (107) 97 Room Air 02/12/17 04:04 Nasal Cannula 2.0 02/12/17 00:11 Nasal Cannula 2.0 02/11/17 23:04 37.2 80 20 154/77 (102) 98 Nasal Cannula 2.0 02/11/17 20:00 Nasal Cannula 2.0 02/11/17 18:45 37.0 89 20 152/76 (101) 98 Nasal Cannula 2.0 02/11/17 16:00 Nasal Cannula 2.0 02/11/17 15:03 36.7 88 18 136/73 (94) 97 Nasal Cannula 2.0 02/11/17 13:23 Nasal Cannula 2.0 02/11/17 12:00 Nasal Cannula 2.0 02/11/17 11:22 36.7 96 12 155/81 (105) 97 Nasal Cannula 2.0 02/11/17 08:37 Nasal Cannula 2.0 02/11/17 08:00 Nasal Cannula 2.0 02/11/17 07:23 36.5 90 14 135/70 (91) 98 Physical Exam: General-aaox3 Eyes-no scleral icterus ENT-mmm Neck-supple Lungs-+end expiratory wheeze Heart-regular Abdomen-bs+ s/nt/+colostomy Extremities-+left toes cool, less swelling Neuro-nonfocal Current Inpatient Medications Medications (Trade) Dose Ordered Sig/Rashid Route Start Time Stop Time Status Last Admin Dose Admin Heparin Sodium/ Dextrose 500 ml @ 33 mls/hr [id number] PRN IV 02/10/17 02:15 03/12/17 02:14 Future hold 02/12/17 02:53 33 MLS/HR Atorvastatin Calcium (Lipitor Tab) 10 mg DAILY PO 02/10/17 09:00 03/12/17 08:59 02/11/17 09:10 10 MG Duloxetine HCl (Cymbalta Cap) 60 mg DAILY PO 02/10/17 09:00 03/12/17 08:59 02/11/17 09:10 60 MG Fluticasone Propionate (Flonase Nasal [place]) 1 sprays DAILY NA 02/10/17 09:00 03/12/17 08:59 Gabapentin (Neurontin Cap) 100 mg TID PO 02/10/17 09:00 03/12/17 08:59 02/11/17 20:36 100 MG Levothyroxine Sodium (Synthroid Tab) 100 mcg DAILYBB PO 02/10/17 06:00 03/12/17 05:59 02/12/17 06:08 100 MCG Lorazepam (Ativan Tab) 0.5 mg TID PRN PO 02/10/17 03:30 03/12/17 03:29 02/10/17 09:08 0.5 MG Mirabegron (Myrbetriq Er) 25 mg DAILY PO 02/10/17 09:00 03/12/17 08:59 02/11/17 09:11 25 MG Ondansetron HCl (Zofran Tab) 8 mg TID PRN PO 02/10/17 03:30 03/12/17 03:29 Pantoprazole Sodium (Protonix Tab) 40 mg BID PO 02/10/17 09:00 03/12/17 08:59 02/11/17 20:36 40 MG Ranitidine HCl (zANTac TAB) 150 mg BID PO 02/10/17 09:00 03/12/17 08:59 02/11/17 20:36 150 MG Tramadol HCl (Ultram Tab) 50 mg Q6H PRN PO 02/10/17 03:30 03/12/17 03:29 02/12/17 01:31 50 MG Buspirone HCl (Buspar Tab) 10 mg TID PO 02/10/17 09:00 03/12/17 08:59 02/11/17 20:37 10 MG Acetaminophen (Tylenol Tab) 1,000 mg Q8 PRN PO 02/10/17 03:30 03/12/17 03:29 02/11/17 12:00 1,000 MG Sodium Chloride 1,000 ml @ 125 mls/hr Q8H IV 02/10/17 10:00 03/12/17 09:59 02/12/17 01:31 125 MLS/HR Hydromorphone HCl (Dilaudid Inj) 1 mg Q6H PRN IV 02/10/17 16:00 02/24/17 15:59 02/10/17 16:24 1 MG Ceftriaxone Sodium 1000 mg/ Dextrose 60 ml @ 100 mls/hr DAILY IV 02/11/17 14:00 02/21/17 13:59 02/11/17 15:08 100 MLS/HR Warfarin Sodium (Coumadin Tab) 5 mg DAILY@16 PO 02/11/17 16:00 03/13/17 15:59 02/11/17 16:01 5 MG Last 24 Hours Test 02/11/17 07:31 02/11/17 15:34 02/12/17 00:21 02/12/17 04:44 Activated Partial Thromboplast Time 18.9 SECONDS 29.2 SECONDS 39.7 SECONDS Partial Thromboplastin Ratio 0.7 1.1 1.5 Sodium Level 137 mmol/L Potassium Level 3.8 mmol/L Chloride Level 108 mmol/L Carbon Dioxide Level 20 mmol/L Anion Gap 9.0 mmol/L Blood Urea Nitrogen 53 mg/dl Creatinine 2.30 mg/dl Est Creatinine Clear Calc Drug Dose 23.0 ml/min Estimated GFR () 24.5 Estimated GFR (Non- 21.1 BUN/Creatinine Ratio 23.1 Random Glucose 119 mg/dl Calcium Level 8.1 mg/dl Assessment & Plan [id number]-presented with dvt-renal us with signs of medical renal disease but no hydro-renal veins are patent. creatinine trending down with the iv fluids. labs pending for this am. pt does have end expiratory wheeze. concerned about fluid overload. will decrease iv fluids to 80cc/hr. DVT-on heparin and coumadin. toes appear more cool today compared to yesterday and pt complaining of 7/10 pain. will discuss further with vascular surgery. with the creatinine improving, perhaps may want to do imaging studies. respectfully defer to surgery.
[2017-02-12 07:55] VITALS: BP 152/67; PULSE 93; TEMP 36.8; O2SAT 99
[2017-02-12] MEDS: HYDROmorphone INJ 1 MG/ML SYR IV PRN ×3 (08:03→23:30)
[2017-02-12] MEDS: DULOXETINE HCL 60 MG CAP PO SCH (08:04)
[2017-02-12] MEDS: RANITIDINE HCL 150 MG TAB PO SCH ×2 (08:04→20:38)
[2017-02-12] MEDS: CEFTRIAXONE SOD INJ 1,000 MG in DEXTROSE 5% 50ML 50 ML IV SCH (08:04)
[2017-02-12] MEDS: GABAPENTIN 100 MG CAP PO SCH ×3 (08:04→20:39)
[2017-02-12] MEDS: MIRABEGRON ER 25 MG TAB PO SCH (08:05)
[2017-02-12] MEDS: PANTOprazole SOD 40 MG TAB PO SCH ×2 (08:05→20:38)
[2017-02-12] MEDS: ATORVASTATIN 10 MG TAB PO SCH (08:05)
[2017-02-12] MEDS: FLUTICASONE PROPIONATE NA SPR 16 GM BTL SCH (09:00)
[2017-02-12 09:20] LABS: BUN/CREATININE RATIO 18.9 (10-20); CALCIUM 8.4 mg/dl (8.5-10.1); CREATININE 1.8 mg/dl (0.60-1.20); POTASSIUM 3.2 mmol/L (3.5-5.1)
[2017-02-12 10:43] LABS: PARTIAL THROMBOPLASTIN RATIO 6.2
[2017-02-12 11:37] LABS: PARTIAL THROMBOPLASTIN RATIO 1.7
[2017-02-12 11:40] VITALS: BP 138/81; PULSE 85; TEMP 36.7; O2SAT 95
[2017-02-12] MEDS ORDERED: POTASSIUM CHLORIDE 20 MEQ TABCR PO STA (11:44)
[2017-02-12 12:45] LABS: HEMATOCRIT 25.9 % (37-47); MEAN CELL VOLUME 91.5 fL (80-100); MEAN CORPUSCULAR HGB CONC 32.8 g/dl (32-36); MEAN PLATELET VOLUME 10.1 fL (7.4-10.4); PLATELET COUNT 161 K/uL (130-400); RED BLOOD COUNT 2.83 M/uL (4.2-5.4); WHITE BLOOD COUNT 12.63 K/uL (4.8-10.8)
[2017-02-12 16:00] VITALS: BP 168/61; PULSE 85; PULSE 96; TEMP 36.5; TEMP 36.9; O2SAT 95
[2017-02-12] MEDS: WARFARIN SOD 5 MG TAB PO SCH (16:41)
--- NOTE | 2017-02-12 18:25 | Progress Note ---
Internal Med Progress Note Date of Service: Feb 12, 2017. Provider Documentation: SUBJECTIVE: The patient was seen and examined Admitted with left leg swelling and pain Denies any CP,Palpitation,SOB Has had the Hematoma over midshin on right ruptured yesterday The area was pressure bandaged and kept Heparin on hold No more bleeding Heparin has been restarted OBJECTIVE: Vital Signs-as noted below Exam: General-No distress art rest Eyes-Normal ENT-Normal Neck-supple Lungs-Clear to ausucltate bilaterally Heart-Regular,no murmur appreciated Abdomen-Benign,no masses,bowel sound present Extremities-Bilateral Legs swelling,Left more than right-swelling and discoloration are better on left side Ruptured hematoma over midshin-no more bleeding noted Neuro-AAOx3 Lab data as noted below. ASSESSMENT & PLAN: EXTENSIVE DVT LEFT LOWER EXTREMITY Prior history of DVT LLE and pulmonary embolism in setting of acute illness / ICU hospitalization in 2013. IVC filter placed at that time Subsequently placed on warfarin, but it was stopped about 2 months ago due to fall risk. Now with extensive swelling and discoloration of LLE, but no severe pain. Venous duplex showed extensive DVT. Initial therapy with IV heparin and will need to have Coumadin therapy Patient was falling earlier in the year, but no falls now for several months. Vascular Surgery consulted -appreciate input .no intervention now Heparin and Coumadin started Dusky discoloration of the left lower extremity Not cold to touch Doppler exam showed good flow Vascular Surgery consulted-observe Left leg swelling and discoloration improved Denies any symptoms May need to have reevaluation as discoloration is not yet better Right Mid Leg Hematoma Ruptures yesterday Reasonable amount of Altered blood drained Heparin was on hold NO more bleeding this AM Heparin restarted and Coumadin added Hb dropped to 8.5 ,inm part dilutional as well Will monitor ACUTE KIDNEY INJURY History CKD III. Serum creatinine now 3, compared to baseline of 1.4 on 12/03/16. Etiology of acute kidney injury uncertain. Check UA, FE Na, renal us, renal vein / IVC duplex. Takes furosemide PRN for edema- on Hold now Avoid potential nephrotoxins when able. Consult Nephrology-appreciate Input . Renal function is improving Possible UTI UA in [facility] ED showed WBC's and bacteria. Afebrile. No dysuria or hematuria. Check repeat UA-negative . Will Rx with piperacillin / tazobactam pending more data. No Cultures were done in [facility] D/C Zosyn and give Ceftriaxone for a total of 5 days HISTORY PUD Continue ranitidine. HYPOTHYROIDISM Continue levothyroxine. VTE PROPHYLAXIS IV heparin for acute DVT. RESUSCITATION STATUS Discussed with patient. No living will. Full code. DISPOSITION Admitted to Telemetry Unit. Discharge disposition to be determined. Family Medicine follow-up with Dr. Myrick. Vital Signs: Date Time Temp Pulse Resp B/P (MAP) Pulse Ox O2 Delivery O2 Flow Rate FiO2 02/12/17 16:00 Room Air 02/12/17 16:00 36.5 85 18 95 Room Air 02/12/17 16:00 36.9 96 22 168/61 (96) 95 Nasal Cannula 2.0 02/12/17 12:00 Room Air 02/12/17 11:40 36.7 85 18 138/81 (100) 95 Room Air 02/12/17 08:00 Room Air 02/12/17 07:55 36.8 93 20 152/67 (95) 99 Room Air 02/12/17 04:31 37.0 83 20 163/79 (107) 97 Room Air 02/12/17 04:04 Nasal Cannula 2.0 02/12/17 00:11 Nasal Cannula 2.0 02/11/17 23:04 37.2 80 20 154/77 (102) 98 Nasal Cannula 2.0 02/11/17 20:00 Nasal Cannula 2.0 02/11/17 18:45 37.0 89 20 152/76 (101) 98 Nasal Cannula 2.0 Lab Results: Results Past 24 Hours Test 02/12/17 00:21 02/12/17 08:19 02/12/17 10:00 02/12/17 11:11 Range/Units Activated Partial Thromboplast Time 39.7 157.1 162.0 44.4 21.0-31.0 SECONDS Partial Thromboplastin Ratio 1.5 6.0 6.2 1.7 Sodium Level 140 136-145 mmol/L Potassium Level 3.2 3.5-5.1 mmol/L Chloride Level 110 98-107 mmol/L Carbon Dioxide Level 16 21-32 mmol/L Anion Gap 14.0 3-11 mmol/L Blood Urea Nitrogen 34 7-18 mg/dl Creatinine 1.80 0.60-1.20 mg/dl Est Creatinine Clear Calc Drug Dose 29.3 ml/min Estimated GFR () 32.9 Estimated GFR (Non- 28.4 BUN/Creatinine Ratio 18.9 10-20 Random Glucose 152 70-99 mg/dl Calcium Level 8.4 8.5-10.1 mg/dl Test 02/12/17 12:28 Range/Units White Blood Count 12.63 4.8-10.8 K/uL Red Blood Count 2.83 4.2-5.4 M/uL Hemoglobin 8.5 12.0-16.0 g/dL Hematocrit 25.9 37-47 % Mean Corpuscular Volume 91.5 80-100 fL Mean Corpuscular Hemoglobin 30.0 25-34 pg Mean Corpuscular Hemoglobin Concent 32.8 32-36 g/dl RDW Standard Deviation 52.1 36.4-46.3 fL RDW Coefficient of Variation 15.5 11.5-14.5 % Platelet Count 161 130-400 K/uL Mean Platelet Volume 10.1 7.4-10.4 fL Nucleated RBC Absolute Count (auto) 0.05 0-0 K/uL Nucleated Red Blood Cells % 0.4 %
[2017-02-12] MEDS: ONDANSETRON 8 MG TAB PO PRN (19:21)
[2017-02-12 19:38] VITALS: BP 154/71; PULSE 87; TEMP 36.5; O2SAT 98
[2017-02-12 20:30] LABS: PARTIAL THROMBOPLASTIN RATIO 2.5
[2017-02-12 23:03] VITALS: BP 177/66; PULSE 89; TEMP 36.7; O2SAT 96
[2017-02-13] VITALS (7 sets, daily range): BP systolic 132–159; BP diastolic 75–98; PULSE 82–92; TEMP 36.3–36.8; O2SAT 92–96
[2017-02-13] MEDS: SODIUM CHLORIDE 0.9% 1000ML 1,000 ML IV SCH (00:34)
[2017-02-13 04:17] LABS: HEMATOCRIT 26.8 % (37-47); MEAN CELL VOLUME 93.4 fL (80-100); MEAN CORPUSCULAR HEMOGLOBIN 29.3 pg (25-34); MEAN CORPUSCULAR HGB CONC 31.3 g/dl (32-36); MEAN PLATELET VOLUME 9.3 fL (7.4-10.4); PLATELET COUNT 172 K/uL (130-400); RED BLOOD COUNT 2.87 M/uL (4.2-5.4); WHITE BLOOD COUNT 14.76 K/uL (4.8-10.8)
[2017-02-13 04:38] LABS: PARTIAL THROMBOPLASTIN RATIO 3.5
[2017-02-13 04:40] LABS: CALCIUM 8.4 mg/dl (8.5-10.1); CREATININE 1.5 mg/dl (0.60-1.20); POTASSIUM 4.2 mmol/L (3.5-5.1)
[2017-02-13] MEDS: LEVOTHYROXINE 100 MCG TAB PO SCH (05:56)
[2017-02-13] MEDS: HEPARIN 25,000 UNIT/500ML D5W 500 ML IV PRN ×3 (06:03→20:05)
[2017-02-13] MEDS: HYDROmorphone INJ 1 MG/ML SYR IV PRN ×4 (06:34→23:31)
[2017-02-13] MEDS: ATORVASTATIN 10 MG TAB PO SCH (08:08)
[2017-02-13] MEDS: DULOXETINE HCL 60 MG CAP PO SCH (08:08)
[2017-02-13] MEDS: MIRABEGRON ER 25 MG TAB PO SCH (08:08)
[2017-02-13] MEDS: RANITIDINE HCL 150 MG TAB PO SCH ×2 (08:08→20:43)
[2017-02-13] MEDS: GABAPENTIN 100 MG CAP PO SCH ×3 (08:08→20:43)
[2017-02-13] MEDS: PANTOprazole SOD 40 MG TAB PO SCH ×2 (08:08→20:43)
[2017-02-13] MEDS: FLUTICASONE PROPIONATE NA SPR 16 GM BTL SCH (08:09)
[2017-02-13] MEDS: CEFTRIAXONE SOD INJ 1,000 MG in DEXTROSE 5% 50ML 50 ML IV SCH (08:10)
--- NOTE | 2017-02-13 10:32 | Nephrology Progress Note ---
Nephrology Progress Note Date of Service: Feb 13, 2017. Subjective c/o R leg pain worse than yesterday; not dypsneic, no N; poor sleep; no chest discomfort or bleeding Objective Date Time Temp Pulse Resp B/P (MAP) Pulse Ox O2 Delivery O2 Flow Rate FiO2 02/13/17 08:00 Room Air 02/13/17 04:10 36.7 92 20 158/98 (118) 96 Room Air 02/13/17 04:00 Room Air 02/13/17 00:27 91 136/78 (97) 02/13/17 00:00 Room Air 02/12/17 23:03 36.7 89 20 177/66 (103) 96 Room Air 02/12/17 20:00 Room Air 02/12/17 19:38 36.5 87 18 154/71 (98) 98 Room Air 02/12/17 16:00 Room Air 02/12/17 16:00 36.5 85 18 95 Room Air 02/12/17 16:00 36.9 96 22 168/61 (96) 95 Nasal Cannula 2.0 02/12/17 12:00 Room Air 02/12/17 11:40 36.7 85 18 138/81 (100) 95 Room Air Physical Exam: General-aaox3, on ra Eyes-no scleral icterus ENT-mmm Neck-supple Lungs-today clear; no end expiratory wheeze Heart-regular Abdomen-bs+ s/nt/+colostomy Extremities-BL toes, less swelling LLE; RLE wound dressed Neuro-nonfocal Current Inpatient Medications Medications (Trade) Dose Ordered Sig/Rashid Route Start Time Stop Time Status Last Admin Dose Admin Heparin Sodium/ Dextrose 500 ml @ 26 mls/hr [id number] PRN IV 02/10/17 02:15 03/12/17 02:14 Future hold 02/13/17 06:03 26 MLS/HR Atorvastatin Calcium (Lipitor Tab) 10 mg DAILY PO 02/10/17 09:00 03/12/17 08:59 02/13/17 08:08 10 MG Duloxetine HCl (Cymbalta Cap) 60 mg DAILY PO 02/10/17 09:00 03/12/17 08:59 02/13/17 08:08 60 MG Fluticasone Propionate (Flonase Nasal [place]) 1 sprays DAILY NA 02/10/17 09:00 03/12/17 08:59 Gabapentin (Neurontin Cap) 100 mg TID PO 02/10/17 09:00 03/12/17 08:59 02/13/17 08:08 100 MG Levothyroxine Sodium (Synthroid Tab) 100 mcg DAILYBB PO 02/10/17 06:00 03/12/17 05:59 02/13/17 05:56 100 MCG Lorazepam (Ativan Tab) 0.5 mg TID PRN PO 02/10/17 03:30 03/12/17 03:29 02/10/17 09:08 0.5 MG Mirabegron (Myrbetriq Er) 25 mg DAILY PO 02/10/17 09:00 03/12/17 08:59 02/13/17 08:08 25 MG Ondansetron HCl (Zofran Tab) 8 mg TID PRN PO 02/10/17 03:30 03/12/17 03:29 02/12/17 19:21 8 MG Pantoprazole Sodium (Protonix Tab) 40 mg BID PO 02/10/17 09:00 03/12/17 08:59 02/13/17 08:08 40 MG Ranitidine HCl (zANTac TAB) 150 mg BID PO 02/10/17 09:00 03/12/17 08:59 02/13/17 08:08 150 MG Tramadol HCl (Ultram Tab) 50 mg Q6H PRN PO 02/10/17 03:30 03/12/17 03:29 02/12/17 01:31 50 MG Buspirone HCl (Buspar Tab) 10 mg TID PO 02/10/17 09:00 03/12/17 08:59 02/13/17 08:08 10 MG Acetaminophen (Tylenol Tab) 1,000 mg Q8 PRN PO 02/10/17 03:30 03/12/17 03:29 02/11/17 12:00 1,000 MG Sodium Chloride 1,000 ml @ 80 mls/hr [id number] IV 02/10/17 10:00 03/12/17 09:59 02/13/17 00:34 80 MLS/HR Hydromorphone HCl (Dilaudid Inj) 1 mg Q6H PRN IV 02/10/17 16:00 02/24/17 15:59 02/13/17 06:34 1 MG Ceftriaxone Sodium 1000 mg/ Dextrose 60 ml @ 100 mls/hr DAILY IV 02/11/17 14:00 02/21/17 13:59 02/13/17 08:10 100 MLS/HR Warfarin Sodium (Coumadin Tab) 5 mg DAILY@16 PO 02/11/17 16:00 03/13/17 15:59 02/12/17 16:41 5 MG Last 24 Hours Test 02/12/17 10:00 02/12/17 11:11 02/12/17 12:28 02/12/17 20:01 Activated Partial Thromboplast Time 162.0 SECONDS 44.4 SECONDS 65.4 SECONDS Partial Thromboplastin Ratio 6.2 1.7 2.5 White Blood Count 12.63 K/uL Red Blood Count 2.83 M/uL Hemoglobin 8.5 g/dL Hematocrit 25.9 % Mean Corpuscular Volume 91.5 fL Mean Corpuscular Hemoglobin 30.0 pg Mean Corpuscular Hemoglobin Concent 32.8 g/dl RDW Standard Deviation 52.1 fL RDW Coefficient of Variation 15.5 % Platelet Count 161 K/uL Mean Platelet Volume 10.1 fL Nucleated RBC Absolute Count (auto) 0.05 K/uL Nucleated Red Blood Cells % 0.4 % Test 02/13/17 04:07 02/13/17 08:44 White Blood Count 14.76 K/uL Red Blood Count 2.87 M/uL Hemoglobin 8.4 g/dL Hematocrit 26.8 % Mean Corpuscular Volume 93.4 fL Mean Corpuscular Hemoglobin 29.3 pg Mean Corpuscular Hemoglobin Concent 31.3 g/dl RDW Standard Deviation 54.1 fL RDW Coefficient of Variation 15.8 % Platelet Count 172 K/uL Mean Platelet Volume 9.3 fL Nucleated RBC Absolute Count (auto) 0.19 K/uL Nucleated Red Blood Cells % 1.3 % Activated Partial Thromboplast Time 90.3 SECONDS Partial Thromboplastin Ratio 3.5 Sodium Level 140 mmol/L Potassium Level 4.2 mmol/L Chloride Level 112 mmol/L Carbon Dioxide Level 20 mmol/L Anion Gap 8.0 mmol/L Blood Urea Nitrogen 30 mg/dl Creatinine 1.50 mg/dl Est Creatinine Clear Calc Drug Dose 35.2 ml/min Estimated GFR () 41.1 Estimated GFR (Non- 35.4 BUN/Creatinine Ratio 20.0 Random Glucose 142 mg/dl Calcium Level 8.4 mg/dl Assessment & Plan 66 yo female seen for sarthak/dvt in the lower extremity. [id number]-presented with dvt-renal us with signs of medical renal disease but no hydro-renal veins are patent. creatinine trending down nearly to 1.4 baseline with the iv fluids. some hyperchloremia, persistent acidosis. -changed ns to 1/2 NS keep 80 ml/hr rate DVT-on heparin and coumadin. primary service and vasc surg following.
[2017-02-13] MEDS: SODIUM CHLORIDE 0.45% 1000ML 1,000 ML IV SCH ×2 (10:40→20:44)
[2017-02-13] MEDS ORDERED: OXYCODONE/ACETAMINOPHEN 5-325 TAB PO ONE (10:45)
[2017-02-13] MEDS ORDERED: OXYCODONE/ACETAMINOPHEN 5-325 TAB PO PRN (10:45)
[2017-02-13 12:20] LABS: INR 1.1 (0.9-1.1); PARTIAL THROMBOPLASTIN RATIO 3.2; PROTHROMBIN TIME (PATIENT) 11.5 SECONDS (9.0-12.0)
[2017-02-13] MEDS: WARFARIN SOD 5 MG TAB PO SCH (18:07)
--- NOTE | 2017-02-13 19:16 | Progress Note ---
Internal Med Progress Note Date of Service: Feb 13, 2017. Provider Documentation: SUBJECTIVE: complains of pain in left lower extremity afebrile no sob or chest pain no nausea OBJECTIVE: Vital Signs-as noted below Exam: General-alert and awake. not in distress ENT-normal hearing Neck-no neck masses supple Lungs-cta b/l no wheezing or crackles Heart-s1 and s2 heard bradycardia no murmurs Abdomen-soft bowel sounds present non tender no distension Extremities-right lower extremity in dressing. left lower extremity tender and swollen Neuro-alert and awake moves extremities Lab data as noted below. ASSESSMENT & PLAN: EXTENSIVE DVT LEFT LOWER EXTREMITY As per H and P: Prior history of DVT LLE and pulmonary embolism in setting of acute illness / ICU hospitalization in 2013. IVC filter placed at that time Subsequently placed on warfarin, but it was stopped about 2 months ago due to fall risk." presents with extensive LLE DVT Heparin and Coumadin started Seen by vascular surgery and appreciate inputs Dusky discoloration of the left lower extremity Doppler exam showed good flow Vascular Surgery was consulted-observe Right Mid Leg Hematoma which Ruptured and heparin was held initially currently stable to monitor while on heparin ACUTE KIDNEY INJURY History CKD III. presented with Serum creatinine now 3, compared to baseline of 1.4 on 12/03/16. fluids as per nephrology cr 1.5 today Possible UTI on Rocephin cx no growth so far. HISTORY PUD On ranitidine. HYPOTHYROIDISM On levothyroxine. VTE PROPHYLAXIS IV heparin for acute DVT. RESUSCITATION STATUS Full code. DISPOSITION Monitor in Telemetry Unit. Discharge disposition to be determined. pt/ot Family Medicine follow-up with Dr. Myrick. Vital Signs: Date Time Temp Pulse Resp B/P (MAP) Pulse Ox O2 Delivery O2 Flow Rate FiO2 02/13/17 16:00 Room Air 02/13/17 15:50 36.8 90 16 132/89 (103) 95 Room Air 02/13/17 12:00 Room Air 02/13/17 11:11 36.6 88 18 159/76 (103) 92 Room Air 02/13/17 08:00 36.3 92 18 140/75 (96) 93 Room Air 02/13/17 08:00 Room Air 02/13/17 04:10 36.7 92 20 158/98 (118) 96 Room Air 02/13/17 04:00 Room Air 02/13/17 00:27 91 136/78 (97) 02/13/17 00:00 Room Air 02/12/17 23:03 36.7 89 20 177/66 (103) 96 Room Air 02/12/17 20:00 Room Air 02/12/17 19:38 36.5 87 18 154/71 (98) 98 Room Air Lab Results: Results Past 24 Hours Test 02/12/17 20:01 02/13/17 04:07 02/13/17 11:47 02/13/17 19:04 Range/Units Activated Partial Thromboplast Time 65.4 90.3 82.1 21.0-31.0 SECONDS Partial Thromboplastin Ratio 2.5 3.5 3.2 White Blood Count 14.76 4.8-10.8 K/uL Red Blood Count 2.87 4.2-5.4 M/uL Hemoglobin 8.4 12.0-16.0 g/dL Hematocrit 26.8 37-47 % Mean Corpuscular Volume 93.4 80-100 fL Mean Corpuscular Hemoglobin 29.3 25-34 pg Mean Corpuscular Hemoglobin Concent 31.3 32-36 g/dl RDW Standard Deviation 54.1 36.4-46.3 fL RDW Coefficient of Variation 15.8 11.5-14.5 % Platelet Count 172 130-400 K/uL Mean Platelet Volume 9.3 7.4-10.4 fL Nucleated RBC Absolute Count (auto) 0.19 0-0 K/uL Nucleated Red Blood Cells % 1.3 % Sodium Level 140 136-145 mmol/L Potassium Level 4.2 3.5-5.1 mmol/L Chloride Level 112 98-107 mmol/L Carbon Dioxide Level 20 21-32 mmol/L Anion Gap 8.0 3-11 mmol/L Blood Urea Nitrogen 30 7-18 mg/dl Creatinine 1.50 0.60-1.20 mg/dl Est Creatinine Clear Calc Drug Dose 35.2 ml/min Estimated GFR () 41.1 Estimated GFR (Non- 35.4 BUN/Creatinine Ratio 20.0 10-20 Random Glucose 142 70-99 mg/dl Calcium Level 8.4 8.5-10.1 mg/dl Prothrombin Time 11.5 9.0-12.0 SECONDS Prothromb Time International Ratio 1.1 0.9-1.1
[2017-02-13 19:37] LABS: PARTIAL THROMBOPLASTIN RATIO 2.8
[2017-02-14] VITALS (7 sets, daily range): BP systolic 133–178; BP diastolic 65–82; PULSE 79–90; TEMP 36.7–37.5; O2SAT 93–100
[2017-02-14 02:38] LABS: CALCIUM 8.9 mg/dl (8.5-10.1); CREATININE 1.7 mg/dl (0.60-1.20); POTASSIUM 4.4 mmol/L (3.5-5.1)
[2017-02-14 02:49] LABS: PARTIAL THROMBOPLASTIN RATIO 1.9
[2017-02-14] MEDS: LEVOTHYROXINE 100 MCG TAB PO SCH (05:54)
[2017-02-14] MEDS: HYDROmorphone INJ 1 MG/ML SYR IV PRN ×3 (06:24→22:41)
--- NOTE | 2017-02-14 07:13 | Nephrology Progress Note ---
Nephrology Progress Note Date of Service: Feb 14, 2017. Subjective 66 yo female seen for sarthak/dvt in the lower extremity. pt with walker in place since difficult for her to ambulate with the pain in the left leg. continues to require pain meds and still with cool extremity. swelling though much improved. no sob. Objective Date Time Temp Pulse Resp B/P (MAP) Pulse Ox O2 Delivery O2 Flow Rate FiO2 02/14/17 07:06 36.8 90 18 133/74 (93) 95 Room Air 02/14/17 04:04 36.8 90 16 142/75 (97) 95 Room Air 02/14/17 04:00 Room Air 2.0 02/14/17 00:00 Room Air 2.0 02/13/17 23:22 36.8 86 18 138/75 (96) 95 Room Air 02/13/17 20:00 Room Air 02/13/17 19:48 36.8 82 18 134/85 (101) 95 Room Air 02/13/17 16:00 Room Air 02/13/17 15:50 36.8 90 16 132/89 (103) 95 Room Air 02/13/17 12:00 Room Air 02/13/17 11:11 36.6 88 18 159/76 (103) 92 Room Air 02/13/17 08:00 36.3 92 18 140/75 (96) 93 Room Air 02/13/17 08:00 Room Air Physical Exam: General-aaox3 Eyes-no scleral icterus ENT-mmm Neck-supple Lungs-cta Heart-regular Abdomen-bs+ s/nt/+colostomy Extremities-+left toes cool, less swelling, better color Neuro-nonfocal Current Inpatient Medications Medications (Trade) Dose Ordered Sig/Rashid Route Start Time Stop Time Status Last Admin Dose Admin Heparin Sodium/ Dextrose 500 ml @ 22 mls/hr [id number] PRN IV 02/10/17 02:15 03/12/17 02:14 Future hold 02/13/17 20:05 22 MLS/HR Atorvastatin Calcium (Lipitor Tab) 10 mg DAILY PO 02/10/17 09:00 03/12/17 08:59 02/13/17 08:08 10 MG Duloxetine HCl (Cymbalta Cap) 60 mg DAILY PO 02/10/17 09:00 03/12/17 08:59 02/13/17 08:08 60 MG Fluticasone Propionate (Flonase Nasal [place]) 1 sprays DAILY NA 02/10/17 09:00 03/12/17 08:59 Gabapentin (Neurontin Cap) 100 mg TID PO 02/10/17 09:00 03/12/17 08:59 02/13/17 20:43 100 MG Levothyroxine Sodium (Synthroid Tab) 100 mcg DAILYBB PO 02/10/17 06:00 03/12/17 05:59 02/14/17 05:54 100 MCG Lorazepam (Ativan Tab) 0.5 mg TID PRN PO 02/10/17 03:30 03/12/17 03:29 02/10/17 09:08 0.5 MG Mirabegron (Myrbetriq Er) 25 mg DAILY PO 02/10/17 09:00 03/12/17 08:59 02/13/17 08:08 25 MG Ondansetron HCl (Zofran Tab) 8 mg TID PRN PO 02/10/17 03:30 03/12/17 03:29 02/12/17 19:21 8 MG Pantoprazole Sodium (Protonix Tab) 40 mg BID PO 02/10/17 09:00 03/12/17 08:59 02/13/17 20:43 40 MG Ranitidine HCl (zANTac TAB) 150 mg BID PO 02/10/17 09:00 03/12/17 08:59 02/13/17 20:43 150 MG Tramadol HCl (Ultram Tab) 50 mg Q6H PRN PO 02/10/17 03:30 03/12/17 03:29 02/12/17 01:31 50 MG Buspirone HCl (Buspar Tab) 10 mg TID PO 02/10/17 09:00 03/12/17 08:59 02/13/17 20:43 10 MG Acetaminophen (Tylenol Tab) 1,000 mg Q8 PRN PO 02/10/17 03:30 03/12/17 03:29 02/11/17 12:00 1,000 MG Ceftriaxone Sodium 1000 mg/ Dextrose 60 ml @ 100 mls/hr DAILY IV 02/11/17 14:00 02/21/17 13:59 02/13/17 08:10 100 MLS/HR Warfarin Sodium (Coumadin Tab) 5 mg DAILY@16 PO 02/11/17 16:00 03/13/17 15:59 02/13/17 18:07 5 MG Sodium Chloride 1,000 ml @ 80 mls/hr [id number] IV 02/13/17 10:30 03/15/17 10:29 02/13/17 20:44 80 MLS/HR Hydromorphone HCl (Dilaudid Inj) 1 mg Q4 PRN IV 02/13/17 10:45 02/24/17 15:59 02/14/17 06:24 1 MG Oxycodone/ Acetaminophen (Percocet 5-325mg Tab) 1 tab Q4H PRN PO 02/13/17 10:45 02/27/17 10:44 Last 24 Hours Test 02/13/17 11:47 02/13/17 19:04 02/14/17 02:00 02/14/17 02:03 Prothrombin Time 11.5 SECONDS Prothromb Time International Ratio 1.1 Activated Partial Thromboplast Time 82.1 SECONDS 73.7 SECONDS 48.6 SECONDS Partial Thromboplastin Ratio 3.2 2.8 1.9 Sodium Level 136 mmol/L Potassium Level 4.4 mmol/L Chloride Level 108 mmol/L Carbon Dioxide Level 19 mmol/L Anion Gap 9.0 mmol/L Blood Urea Nitrogen 31 mg/dl Creatinine 1.70 mg/dl Est Creatinine Clear Calc Drug Dose 31.1 ml/min Estimated GFR () 35.3 Estimated GFR (Non- 30.5 BUN/Creatinine Ratio 18.0 Random Glucose 138 mg/dl Calcium Level 8.9 mg/dl Assessment & Plan [id number]-presented with dvt-renal us with signs of medical renal disease but no hydro-renal veins are patent. creatinine 1.7 today. 1.4 as outpt. tolerating fluids well and looks euvolemic to me. discussed removing walker secondary to risk for infection. pt though still weak and painful for her to put pressure on her foot. will leave walker in place and continue low rate of fluids. .
--- NOTE | 2017-02-14 07:32 | DIAGNOSTIC IMAGING REPORT ---
HEAD WITHOUT CONTRAST (CT) CLINICAL HISTORY: 66 years-old Female presenting with R foot numbness, lower extremity DVT. TECHNIQUE: Multidetector CT imaging of the head was performed without the use of intravenous contrast. IV contrast: None. A dose lowering technique was used consistent with the principles of ALARA (as low as reasonably achievable). COMPARISON: None. CT DOSE (mGy.cm): The estimated cumulative dose is 537.48 mGy.cm. FINDINGS: Highway Design [employer] topogram: Unremarkable. Ventricles and sulci normal in size. Brain parenchyma normal in appearance with preserved garvey-white differentiation. No mass effect or midline shift. No hemorrhage or acute territorial infarct. No extra-axial fluid collection. Paranasal sinuses and mastoid air cells clear. Calvarium intact. IMPRESSION: 1. No acute intracranial pathology. Electronically signed by: Samuel Aguilar M.D. 02/14/2017 7:30 AM Dictated Date/Time: 02/14/2017 7:29 AM
[2017-02-14] MEDS: ATORVASTATIN 10 MG TAB PO SCH (08:33)
[2017-02-14] MEDS: GABAPENTIN 100 MG CAP PO SCH ×3 (08:33→21:37)
[2017-02-14] MEDS: RANITIDINE HCL 150 MG TAB PO SCH ×2 (08:33→21:37)
[2017-02-14] MEDS: FLUTICASONE PROPIONATE NA SPR 16 GM BTL SCH (08:33)
[2017-02-14] MEDS: DULOXETINE HCL 60 MG CAP PO SCH (08:33)
[2017-02-14] MEDS: PANTOprazole SOD 40 MG TAB PO SCH ×2 (08:33→21:37)
[2017-02-14] MEDS: CEFTRIAXONE SOD INJ 1,000 MG in DEXTROSE 5% 50ML 50 ML IV SCH (08:33)
[2017-02-14] MEDS: MIRABEGRON ER 25 MG TAB PO SCH (08:34)
[2017-02-14] MEDS: SODIUM CHLORIDE 0.45% 1000ML 1,000 ML IV SCH ×2 (11:24→23:10)
[2017-02-14] MEDS: HEPARIN 25,000 UNIT/500ML D5W 500 ML IV PRN (14:25)
--- NOTE | 2017-02-14 14:43 | Progress Note ---
Internal Med Progress Note Date of Service: Feb 14, 2017. Provider Documentation: SUBJECTIVE: resting comfortably has some pain in both the legs afebrile 'no sob or chest pain OBJECTIVE: Vital Signs-as noted below Exam: General-alert and awake. not in distress ENT-normal hearing Neck-no neck masses supple Lungs-cta b/l no wheezing or crackles Heart-s1 and s2 heard bradycardia no murmurs Abdomen-soft bowel sounds present non tender no distension Extremities-right lower extremity in dressing. left lower extremity tender and swollen -pedal pulse audible for doppler Neuro-alert and awake moves extremities Lab data as noted below. ASSESSMENT & PLAN: EXTENSIVE DVT LEFT LOWER EXTREMITY As per H and P: Prior history of DVT LLE and pulmonary embolism in setting of acute illness / ICU hospitalization in 2013. IVC filter placed at that time Subsequently placed on warfarin, but it was stopped about 2 months ago due to fall risk." presents with extensive LLE DVT Heparin and Coumadin started await inr to be therapeutic Seen by vascular surgery and appreciate inputs Dusky discoloration of the left lower extremity Doppler exam showed good flow Vascular Surgery was consulted-observe will monitor Right Mid Leg Hematoma which Ruptured and heparin was held initially currently stable to monitor while on heparin stable ACUTE KIDNEY INJURY History CKD III. presented with Serum creatinine now 3, compared to baseline of 1.4 on 12/03/16. fluids as per nephrology cr 1.7 today f/u labs Possible UTI on Rocephin#4 cx no growth so far. HISTORY PUD On ranitidine. HYPOTHYROIDISM On levothyroxine. VTE PROPHYLAXIS IV heparin for acute DVT. RESUSCITATION STATUS Full code. DISPOSITION Monitor in Telemetry Unit. await inr to be therapeutic Discharge disposition to be determined. pt/ot Family Medicine follow-up with Dr. Myrick. Vital Signs: Date Time Temp Pulse Resp B/P (MAP) Pulse Ox O2 Delivery O2 Flow Rate FiO2 02/14/17 12:00 Room Air 02/14/17 11:30 36.8 79 17 138/70 (92) 96 Room Air 02/14/17 08:00 Room Air 02/14/17 07:06 36.8 90 18 133/74 (93) 95 Room Air 02/14/17 04:04 36.8 90 16 142/75 (97) 95 Room Air 02/14/17 04:00 Room Air 2.0 02/14/17 00:00 Room Air 2.0 02/13/17 23:22 36.8 86 18 138/75 (96) 95 Room Air 02/13/17 20:00 Room Air 02/13/17 19:48 36.8 82 18 134/85 (101) 95 Room Air 02/13/17 16:00 Room Air 02/13/17 15:50 36.8 90 16 132/89 (103) 95 Room Air Lab Results: Results Past 24 Hours Test 02/13/17 19:04 02/14/17 02:00 02/14/17 02:03 02/14/17 07:42 Range/Units Activated Partial Thromboplast Time 73.7 48.6 21.0-31.0 SECONDS Partial Thromboplastin Ratio 2.8 1.9 Sodium Level 136 136-145 mmol/L Potassium Level 4.4 3.5-5.1 mmol/L Chloride Level 108 98-107 mmol/L Carbon Dioxide Level 19 21-32 mmol/L Anion Gap 9.0 3-11 mmol/L Blood Urea Nitrogen 31 7-18 mg/dl Creatinine 1.70 0.60-1.20 mg/dl Est Creatinine Clear Calc Drug Dose 31.1 ml/min Estimated GFR () 35.3 Estimated GFR (Non- 30.5 BUN/Creatinine Ratio 18.0 10-20 Random Glucose 138 70-99 mg/dl Calcium Level 8.9 8.5-10.1 mg/dl Hemoglobin 8.3 12.0-16.0 g/dL Hematocrit 26.0 37-47 %
[2017-02-14 15:05] LABS: INR 1.2 (0.9-1.1); PROTHROMBIN TIME (PATIENT) 12.7 SECONDS (9.0-12.0)
[2017-02-14] MEDS ORDERED: WARFARIN SOD 7.5 MG TAB PO SCH (16:00)
--- NOTE | 2017-02-14 17:29 | Medical Consult ---
Consultation Date of Consultation: Feb 14, 2017. Attending Physician: Enrique Rodrigues MD Reason for Consultation: Hematoma - Right Lower Extremity History of Present Illness 66-year-old female with past medical history significant for chronic kidney disease stage III, dyslipidemia, hypertension, peritonitis, hypothyroidism, and pulmonary embolism s/p IVC filter placement during ICU stay in 2013. Patient was started on Warfarin therapy. Warfarin was stopped approximately 2 months ago due to high risk for falls. Patient states that a couple days before presenting to [facility] she was evaluated at [place] ED for possible cellulitis of right lower extremity- patient was prescribed outpatient antibiotics, but did not fill them. Patient states that redness and swelling in right lower extremity continued to get worse- patient presented to [place] ED where it was discovered that she has a DVT of the left lower extremity. Hospital Course- Patient was evaluated by Vascular Surgery - recommended to resume anticoagulation therapy. Patient reports pain in both left and right lower extremities. She denies fever or chills. Patient currently receiving Heparin and Coumadin therapy. Patient reports that she lives at home alone. Family History Cancer SON Heart disease FATHER Stroke SON Thyroid disease MOTHER Social History Smoking Status: Never Smoker Alcohol Use: none Housing Status: lives alone Allergies Coded Allergies: Meperidine (Verified Allergy, Unknown, unknown, 02/10/17) Current Inpatient Medications Current Inpatient Medications Medications (Trade) Dose Ordered Sig/Rashid Route Start Time Stop Time Status Last Admin Dose Admin Heparin Sodium/ Dextrose 500 ml @ 22 mls/hr [id number] PRN IV 02/10/17 02:15 03/12/17 02:14 Future hold 02/14/17 14:25 22 MLS/HR Atorvastatin Calcium (Lipitor Tab) 10 mg DAILY PO 02/10/17 09:00 03/12/17 08:59 02/14/17 08:33 10 MG Duloxetine HCl (Cymbalta Cap) 60 mg DAILY PO 02/10/17 09:00 03/12/17 08:59 02/14/17 08:33 60 MG Fluticasone Propionate (Flonase Nasal [place]) 1 sprays DAILY NA 02/10/17 09:00 03/12/17 08:59 02/14/17 08:33 1 SPRAYS Gabapentin (Neurontin Cap) 100 mg TID PO 02/10/17 09:00 03/12/17 08:59 02/14/17 14:25 100 MG Levothyroxine Sodium (Synthroid Tab) 100 mcg DAILYBB PO 02/10/17 06:00 03/12/17 05:59 02/14/17 05:54 100 MCG Lorazepam (Ativan Tab) 0.5 mg TID PRN PO 02/10/17 03:30 03/12/17 03:29 02/10/17 09:08 0.5 MG Mirabegron (Myrbetriq Er) 25 mg DAILY PO 02/10/17 09:00 03/12/17 08:59 02/14/17 08:34 25 MG Ondansetron HCl (Zofran Tab) 8 mg TID PRN PO 02/10/17 03:30 03/12/17 03:29 02/12/17 19:21 8 MG Pantoprazole Sodium (Protonix Tab) 40 mg BID PO 02/10/17 09:00 03/12/17 08:59 02/14/17 08:33 40 MG Ranitidine HCl (zANTac TAB) 150 mg BID PO 02/10/17 09:00 03/12/17 08:59 02/14/17 08:33 150 MG Tramadol HCl (Ultram Tab) 50 mg Q6H PRN PO 02/10/17 03:30 03/12/17 03:29 02/12/17 01:31 50 MG Buspirone HCl (Buspar Tab) 10 mg TID PO 02/10/17 09:00 03/12/17 08:59 02/14/17 14:25 10 MG Acetaminophen (Tylenol Tab) 1,000 mg Q8 PRN PO 02/10/17 03:30 03/12/17 03:29 02/11/17 12:00 1,000 MG Ceftriaxone Sodium 1000 mg/ Dextrose 60 ml @ 100 mls/hr DAILY IV 02/11/17 14:00 02/21/17 13:59 02/14/17 08:33 100 MLS/HR Sodium Chloride 1,000 ml @ 80 mls/hr [id number] IV 02/13/17 10:30 03/15/17 10:29 02/14/17 11:24 80 MLS/HR Hydromorphone HCl (Dilaudid Inj) 1 mg Q4 PRN IV 02/13/17 10:45 10/17 15:59 02/14/17 12:00 1 MG Oxycodone/ Acetaminophen (Percocet 5-325mg Tab) 1 tab Q4H PRN PO 02/13/17 10:45 02/27/17 10:44 Warfarin Sodium (Coumadin Tab) 7.5 mg DAILY@16 PO 02/14/17 16:00 03/13/17 15:59 Review of Systems Constitutional: No fever, No chills Cardiovascular: No chest pain Musculoskeletal: + problem reported (bilateral lower extremity pain. ) Physical Exam Date Time Temp Pulse Resp B/P (MAP) Pulse Ox O2 Delivery O2 Flow Rate FiO2 02/14/17 16:39 36.7 85 18 168/71 (103) 93 163/79 (107) 02/14/17 12:00 Room Air 02/14/17 11:30 36.8 79 17 138/70 (92) 96 Room Air 02/14/17 08:00 Room Air 02/14/17 07:06 36.8 90 18 133/74 (93) 95 Room Air 02/14/17 04:04 36.8 90 16 142/75 (97) 95 Room Air 02/14/17 04:00 Room Air 2.0 02/14/17 00:00 Room Air 2.0 02/13/17 23:22 36.8 86 18 138/75 (96) 95 Room Air 02/13/17 20:00 Room Air 02/13/17 19:48 36.8 82 18 134/85 (101) 95 Room Air General Appearance: WD/WN, + pertinent finding Extremities/Musculoskelatal: + calf tenderness, + swelling, + pertinent finding (right lower extremity is extremely erythematous. The area of redness extends over the larger portion of her anterior leg, below the knee. There is an open area a few cm long- minimal bloody drainage noted. Patient is extremely tender to palpation. ) Laboratory Results Last 24 Hours Test 02/13/17 19:04 02/14/17 02:00 02/14/17 02:03 02/14/17 07:42 Activated Partial Thromboplast Time 73.7 SECONDS 48.6 SECONDS Partial Thromboplastin Ratio 2.8 1.9 Prothrombin Time 12.7 SECONDS Prothromb Time International Ratio 1.2 Sodium Level 136 mmol/L Potassium Level 4.4 mmol/L Chloride Level 108 mmol/L Carbon Dioxide Level 19 mmol/L Anion Gap 9.0 mmol/L Blood Urea Nitrogen 31 mg/dl Creatinine 1.70 mg/dl Est Creatinine Clear Calc Drug Dose 31.1 ml/min Estimated GFR () 35.3 Estimated GFR (Non- 30.5 BUN/Creatinine Ratio 18.0 Random Glucose 138 mg/dl Calcium Level 8.9 mg/dl Hemoglobin 8.3 g/dL Hematocrit 26.0 % Assessment & Plan Right Lower Extremity Hematoma, patient on both Heparin and Coumadin. Spoke with Dr. Rubalcava- Will make patient NPO after midnight. Hold Coumadin dose for today- will recheck PT/INR tomorrow AM. Will stop Heparin drip tomorrow morning at 6AM for possible hematoma evacuation. Dr. Rubalcava will be in to see and evaluate patient tomorrow AM for possible OR.
[2017-02-14] MEDS ORDERED: NURSING VERBAL MED ORDER ONE ×2 (17:30)
[2017-02-14] MEDS: ONDANSETRON 8 MG TAB PO PRN (18:39)
[2017-02-15] VITALS (16 sets, daily range): BP systolic 157–183; BP diastolic 70–83; PULSE 71–94; TEMP 36.5–37; O2SAT 92–98
[2017-02-15] MEDS: ONDANSETRON 8 MG TAB PO PRN ×3 (03:27→20:08)
[2017-02-15] MEDS: HYDROmorphone INJ 1 MG/ML SYR IV PRN (05:00)
[2017-02-15] MEDS ORDERED: HOLD HEPARIN DRIP ORDER ONE (06:00)
[2017-02-15 06:16] LABS: HEMATOCRIT 22.9 % (37-47); MEAN CELL VOLUME 91.6 fL (80-100); MEAN CORPUSCULAR HGB CONC 32.8 g/dl (32-36); MEAN PLATELET VOLUME 9.3 fL (7.4-10.4); PLATELET COUNT 185 K/uL (130-400); WHITE BLOOD COUNT 14.63 K/uL (4.8-10.8)
[2017-02-15] MEDS: LEVOTHYROXINE 100 MCG TAB PO SCH (06:16)
[2017-02-15 06:29] LABS: INR 1.4 (0.9-1.1); PROTHROMBIN TIME (PATIENT) 15.1 SECONDS (9.0-12.0)
[2017-02-15 06:45] LABS: BUN/CREATININE RATIO 17.6 (10-20); CALCIUM 9.1 mg/dl (8.5-10.1); CREATININE 1.4 mg/dl (0.60-1.20); MAGNESIUM 1.9 mg/dl (1.8-2.4); POTASSIUM 4.2 mmol/L (3.5-5.1)
[2017-02-15] MEDS ORDERED: LIDOCAINE HCL 2% JELLY 30 ML TUBE EXT PRN (06:45)
[2017-02-15 06:48] LABS: ALB/GLOB RATIO 0.6 (0.9-2)
[2017-02-15 06:49] LABS: BASO % 0.3 %; BASO ABS # 0.04 K/uL (0-0.2); COMPLETE YES; EOS % 0.5 %; IG% 6.8 %; LYMPH % 6.2 %; LYMPH ABS # 0.91 K/uL (1.2-3.4); MONO % 8.7 %; NEUT % 77.5 %
[2017-02-15] MEDS ORDERED: LIDOCAINE HCL 2% JELLY 30 ML TUBE EXT ONE (06:52)
[2017-02-15] MEDS: SODIUM CHLORIDE 0.9% 1000ML 1,000 ML IV SCH (07:33)
[2017-02-15] MEDS: DULOXETINE HCL 60 MG CAP PO SCH (07:35)
[2017-02-15] MEDS: GABAPENTIN 100 MG CAP PO SCH ×3 (07:36→20:07)
[2017-02-15] MEDS: ATORVASTATIN 10 MG TAB PO SCH (07:36)
[2017-02-15] MEDS: RANITIDINE HCL 150 MG TAB PO SCH ×2 (07:36→20:08)
[2017-02-15] MEDS: PANTOprazole SOD 40 MG TAB PO SCH ×2 (07:36→20:07)
[2017-02-15] MEDS: FLUTICASONE PROPIONATE NA SPR 16 GM BTL SCH (07:36)
[2017-02-15] MEDS: MIRABEGRON ER 25 MG TAB PO SCH (07:36)
[2017-02-15] MEDS: CEFTRIAXONE SOD INJ 1,000 MG in DEXTROSE 5% 50ML 50 ML IV SCH (07:37)
--- NOTE | 2017-02-15 08:31 | DIAGNOSTIC IMAGING REPORT ---
ABD/PELVIS NO IV OR ORAL CONT CLINICAL HISTORY: 66 years-old Female presenting with abd pain. TECHNIQUE: Multidetector CT of the abdomen and pelvis was performed without the use of intravenous contrast. IV contrast: None. A dose lowering technique was used consistent with the principles of ALARA (as low as reasonably achievable). COMPARISON: None. CT DOSE (mGy.cm): The estimated cumulative dose is 1711.36 mGy.cm. FINDINGS: Home Supervisor topogram: IVC filter in place. Lung bases: Dependent consolidation in the left lower lobe with prominent bilateral subcostal fat proliferation, likely atelectasis. Left atrial enlargement. Mediastinal lipomatosis. No pericardial or pleural effusion. Liver: Normal morphology. Borderline hepatic steatosis. Biliary: No gross biliary ductal dilatation allowing for noncontrast technique. Gallbladder surgically absent. Pancreas: Moderate parenchymal atrophy. Spleen: Normal noncontrast appearance. Adrenal glands: Normal noncontrast appearance. Kidneys and ureters: Cortical thinning bilaterally suggested. Otherwise normal noncontrast appearance. No hydronephrosis. No nephrolithiasis. Normal ureters. Bladder: Urinary bladder decompressed with a Johnston catheter. Few foci of gas likely related to the catheter. Pelvic organs: Uterus and ovaries normal. Bowel: Diverticulosis of the sigmoid colon. Many which contain calcified material. Ventral midline hernia containing the mid portion of the transverse colon, which is nondilated and nonobstructed (series 3 image 38). Right lower quadrant loop ileostomy with prominent parastomal hernia containing several loops of small bowel. Small bowel proximal to this appears mildly dilated up to 2.5 cm in diameter. A suspected transition point is noted along the left aspect of the hernia sac likely due to adhesions (series 2 image 59). Smooth tapering of the distended small bowel proximally. No associated inflammatory change or fluid to suggest strangulation. Peritoneal cavity: No free fluid or intraperitoneal gas. Vasculature: Atherosclerosis of the normal caliber abdominal aorta. IVC filter in place in the infrarenal IVC. Lymph nodes: No gross lymphadenopathy allowing for noncontrast technique. Abdominal wall: Diastases of the abdominis rectus with postsurgical changes in the right upper quadrant. Multiple small fat-containing ventral hernias in addition to the parastomal and transverse colon hernia previously described. Anasarca most pronounced in the bilateral lower extremities. Skin thickening along the anterior abdominal wall likely associated with anasarca. Musculoskeletal: Degenerative changes of the spine. Osteopenia. IMPRESSION: 1. Findings consistent with early small bowel obstruction with a transition point along the left aspect of the parastomal hernia sac as described above. 2. Postsurgical changes of right lower quadrant loop ileostomy. 3. Multiple ventral hernias. One apparent hernia contains the mid transverse colon, although this may be intentional surgical fixation of the colon at this point. 4. Osteopenia. 5. Anasarca. The predominant anasarca in the bilateral lower extremities and lower abdomen in the the presence of an IVC this could raise concern for patency of the IVC. This is not assessed without intravenous contrast. Consideration for ultrasound or contrast-enhanced cross-sectional imaging as clinically warranted. Electronically signed by: Samuel Aguilar M.D. 02/15/2017 8:30 AM Dictated Date/Time: 02/15/2017 8:21 AM
[2017-02-15] MEDS ORDERED: ACETAMINOPHEN 325 MG TAB PO SCH (09:00)
--- NOTE | 2017-02-15 10:27 | Surgery Progress Note ---
Surgery Progress Note Date of Service Feb 15, 2017. Subjective pt was having nausea and vomitting overnight...ct done showed early SBO...NGT placement was unsuccessfully attempted but pt is now feeling much better. no further nausea. currently she has no leg pain either. Objective Vital Signs: Date Time Temp Pulse Resp B/P (MAP) Pulse Ox O2 Delivery O2 Flow Rate FiO2 02/15/17 10:05 36.9 82 16 183/77 93 02/15/17 09:50 36.5 78 16 173/78 96 02/15/17 09:35 36.9 71 16 178/79 93 02/15/17 08:04 36.9 81 20 164/70 (101) 95 Room Air 02/15/17 08:00 Room Air 02/15/17 04:00 Room Air 02/15/17 03:11 37.0 88 16 157/72 (100) 97 Room Air 02/15/17 00:00 Room Air 02/14/17 23:42 151/68 (95) 02/14/17 23:27 37.5 88 18 178/65 (102) 96 Room Air 02/14/17 20:00 Room Air 02/14/17 19:43 37.4 87 18 162/82 (108) 100 Room Air 02/14/17 16:39 36.7 85 18 168/71 (103) 93 163/79 (107) 02/14/17 16:00 Room Air 02/14/17 12:00 Room Air 02/14/17 11:30 36.8 79 17 138/70 (92) 96 Room Air General Appearance: no apparent distress Head: normocephalic, atraumatic Respiratory/Chest: no respiratory distress, no accessory muscle use Abdomen: non tender, non distended, soft Extremities: + pertinent finding (large hematoma RLE...small skin opeing with minimal drainage. ecchymosis to the upper leg. erythema present/slightly warm to touch. ) Laboratory Results: Results Past 24 Hours Test 02/15/17 05:49 Range/Units White Blood Count 14.63 4.8-10.8 K/uL Red Blood Count 2.50 4.2-5.4 M/uL Hemoglobin 7.5 12.0-16.0 g/dL Hematocrit 22.9 37-47 % Mean Corpuscular Volume 91.6 80-100 fL Mean Corpuscular Hemoglobin 30.0 25-34 pg Mean Corpuscular Hemoglobin Concent 32.8 32-36 g/dl Platelet Count 185 130-400 K/uL Mean Platelet Volume 9.3 7.4-10.4 fL Neutrophils (%) (Auto) 77.5 % Lymphocytes (%) (Auto) 6.2 % Monocytes (%) (Auto) 8.7 % Eosinophils (%) (Auto) 0.5 % Basophils (%) (Auto) 0.3 % Neutrophils # (Auto) 11.34 1.4-6.5 K/uL Lymphocytes # (Auto) 0.91 1.2-3.4 K/uL Monocytes # (Auto) 1.28 0.11-0.59 K/uL Eosinophils # (Auto) 0.07 0-0.5 K/uL Basophils # (Auto) 0.04 0-0.2 K/uL RDW Standard Deviation 53.2 36.4-46.3 fL RDW Coefficient of Variation 16.1 11.5-14.5 % Immature Granulocyte % (Auto) 6.8 % Immature Granulocyte # (Auto) 0.99 0.00-0.02 K/uL Nucleated RBC Absolute Count (auto) 0.61 0-0 K/uL Nucleated Red Blood Cells % 4.2 % Red Blood Cell Morphology Unremarkable Prothrombin Time 15.1 9.0-12.0 SECONDS Prothromb Time International Ratio 1.4 0.9-1.1 Activated Partial Thromboplast Time 26.6 21.0-31.0 SECONDS Partial Thromboplastin Ratio 1.0 Sodium Level 133 136-145 mmol/L Potassium Level 4.2 3.5-5.1 mmol/L Chloride Level 104 98-107 mmol/L Carbon Dioxide Level 19 21-32 mmol/L Anion Gap 10.0 3-11 mmol/L Blood Urea Nitrogen 25 7-18 mg/dl Creatinine 1.40 0.60-1.20 mg/dl Est Creatinine Clear Calc Drug Dose 40.2 ml/min Estimated GFR () 44.6 Estimated GFR (Non- 38.5 BUN/Creatinine Ratio 17.6 10-20 Random Glucose 125 70-99 mg/dl Calcium Level 9.1 8.5-10.1 mg/dl Magnesium Level 1.9 1.8-2.4 mg/dl Total Bilirubin 0.5 0.2-1 mg/dl Aspartate Amino Transf (AST/SGOT) 16 15-37 U/L Alanine Aminotransferase (ALT/SGPT) 19 12-78 U/L Alkaline Phosphatase 153 45-117 U/L Total Protein 6.0 6.4-8.2 gm/dl Albumin 2.3 3.4-5.0 gm/dl Globulin 3.7 2.5-4.0 gm/dl Albumin/Globulin Ratio 0.6 0.9-2 Lipase 79 73-393 U/L Assessment & Plan 1. ileus /sbo clinically improved. can try liquids. NPO after midnight. can hold on ngt for now as pt is doing/feeling better. 2. LE hematoma INR increased to 1.4 requiring PRBC transfusion today no pain currently will hold OR for now. recheck INR. will eval day to day. if WBC climbs will definitely need I&D. keep NPO after midnight each day for possible OR cont to hold coumadin
[2017-02-15] MEDS: LORAZEPAM 0.5 MG TAB PO PRN (17:43)
--- NOTE | 2017-02-15 18:49 | Progress Note ---
Internal Med Progress Note Date of Service: Feb 15, 2017. Provider Documentation: SUBJECTIVE: had nausea and abdominal pain last night and ct scan showwed sbo couldn't place ng tube symptoms improved later in the day complains of pain in LUQ . hemodynamics stable no sob or chest pain afebrile OBJECTIVE: Vital Signs-as noted below Exam: General-alert and awake. not in distress ENT-normal hearing Neck-no neck masses supple Lungs-cta b/l no wheezing or crackles Heart-s1 and s2 heard regular no murmurs Abdomen-soft bowel sounds sluggish mild LUQ tender has colostomy bag. Has chronic mid abdominal wall wound. Extremities-right lower extremity in dressing. left lower extremity tender and swollen -pedal pulse audible for Doppler Neuro-alert and awake moves extremities Lab data as noted below. ASSESSMENT & PLAN: EXTENSIVE DVT LEFT LOWER EXTREMITY As per H and P: Prior history of DVT LLE and pulmonary embolism in setting of acute illness / ICU hospitalization in 2013. IVC filter placed at that time Subsequently placed on warfarin, but it was stopped about 2 months ago due to fall risk." presents with extensive LLE DVT Heparin and Coumadin started but are held since yesterday for anemia and large right lower extremity hematoma. Seen by vascular surgery and appreciate inputs US to check patency of IVC filter Dusky discoloration of the left lower extremity Doppler exam showed good flow Vascular Surgery was consulted-observe will monitor Right Mid Leg Hematoma which Ruptured and heparin was held initially large and deep purish surgery closely following may need evacuation Anemia acute blood loss from above hb 7.5 today transfused two units today f/u h and h, SBO nausea on gentle fluids pain control surgery on board now complains of RUQ abdominal pain- may repeat ct scan as patient has ventral hernias if pain gets worse will check lactic acid ACUTE KIDNEY INJURY History CKD III. presented with Serum creatinine now 3, compared to baseline of 1.4 on 12/03/16. fluids as per nephrology cr 1.4 today f/u labs Possible UTI on Rocephin#5 cx no growth so far. HISTORY PUD On ranitidine. HYPOTHYROIDISM On levothyroxine. VTE PROPHYLAXIS IV heparin and Coumadin held for large rt lower extremity hematoma cannot place scds secondary to hematoma and pain RESUSCITATION STATUS Full code. DISPOSITION Monitor in Telemetry Unit. Discharge disposition to be determined. pt/ot when stable Family Medicine follow-up with Dr. Myrick. Vital Signs: Date Time Temp Pulse Resp B/P (MAP) Pulse Ox O2 Delivery O2 Flow Rate FiO2 02/15/17 16:00 Room Air 02/15/17 15:35 36.7 80 18 173/75 (107) 96 Room Air 02/15/17 13:31 36.7 79 20 173/80 (111) 94 Room Air 02/15/17 13:05 86 16 179/76 96 02/15/17 12:35 73 16 172/81 93 02/15/17 12:20 84 16 176/76 95 02/15/17 12:01 36.8 87 20 157/82 98 02/15/17 12:00 Room Air 02/15/17 11:49 36.5 81 16 171/82 95 02/15/17 11:05 88 16 172/79 97 02/15/17 10:50 75 16 173/83 93 02/15/17 10:05 36.9 82 16 183/77 93 02/15/17 09:50 36.5 78 16 173/78 96 02/15/17 09:35 36.9 71 16 178/79 93 02/15/17 08:04 36.9 81 20 164/70 (101) 95 Room Air 02/15/17 08:00 Room Air 02/15/17 04:00 Room Air 02/15/17 03:11 37.0 88 16 157/72 (100) 97 Room Air 02/15/17 00:00 Room Air 02/14/17 23:42 151/68 (95) 02/14/17 23:27 37.5 88 18 178/65 (102) 96 Room Air 02/14/17 20:00 Room Air 02/14/17 19:43 37.4 87 18 162/82 (108) 100 Room Air Lab Results: Results Past 24 Hours Test 02/15/17 05:49 02/15/17 18:49 Range/Units White Blood Count 14.63 4.8-10.8 K/uL Red Blood Count 2.50 4.2-5.4 M/uL Hemoglobin 7.5 12.0-16.0 g/dL Hematocrit 22.9 37-47 % Mean Corpuscular Volume 91.6 80-100 fL Mean Corpuscular Hemoglobin 30.0 25-34 pg Mean Corpuscular Hemoglobin Concent 32.8 32-36 g/dl Platelet Count 185 130-400 K/uL Mean Platelet Volume 9.3 7.4-10.4 fL Neutrophils (%) (Auto) 77.5 % Lymphocytes (%) (Auto) 6.2 % Monocytes (%) (Auto) 8.7 % Eosinophils (%) (Auto) 0.5 % Basophils (%) (Auto) 0.3 % Neutrophils # (Auto) 11.34 1.4-6.5 K/uL Lymphocytes # (Auto) 0.91 1.2-3.4 K/uL Monocytes # (Auto) 1.28 0.11-0.59 K/uL Eosinophils # (Auto) 0.07 0-0.5 K/uL Basophils # (Auto) 0.04 0-0.2 K/uL RDW Standard Deviation 53.2 36.4-46.3 fL RDW Coefficient of Variation 16.1 11.5-14.5 % Immature Granulocyte % (Auto) 6.8 % Immature Granulocyte # (Auto) 0.99 0.00-0.02 K/uL Nucleated RBC Absolute Count (auto) 0.61 0-0 K/uL Nucleated Red Blood Cells % 4.2 % Red Blood Cell Morphology Unremarkable Prothrombin Time 15.1 9.0-12.0 SECONDS Prothromb Time International Ratio 1.4 0.9-1.1 Activated Partial Thromboplast Time 26.6 21.0-31.0 SECONDS Partial Thromboplastin Ratio 1.0 Sodium Level 133 136-145 mmol/L Potassium Level 4.2 3.5-5.1 mmol/L Chloride Level 104 98-107 mmol/L Carbon Dioxide Level 19 21-32 mmol/L Anion Gap 10.0 3-11 mmol/L Blood Urea Nitrogen 25 7-18 mg/dl Creatinine 1.40 0.60-1.20 mg/dl Est Creatinine Clear Calc Drug Dose 40.2 ml/min Estimated GFR () 44.6 Estimated GFR (Non- 38.5 BUN/Creatinine Ratio 17.6 10-20 Random Glucose 125 70-99 mg/dl Calcium Level 9.1 8.5-10.1 mg/dl Magnesium Level 1.9 1.8-2.4 mg/dl Total Bilirubin 0.5 0.2-1 mg/dl Aspartate Amino Transf (AST/SGOT) 16 15-37 U/L Alanine Aminotransferase (ALT/SGPT) 19 12-78 U/L Alkaline Phosphatase 153 45-117 U/L Total Protein 6.0 6.4-8.2 gm/dl Albumin 2.3 3.4-5.0 gm/dl Globulin 3.7 2.5-4.0 gm/dl Albumin/Globulin Ratio 0.6 0.9-2 Lipase 79 73-393 U/L
--- NOTE | 2017-02-15 19:13 | DIAGNOSTIC IMAGING REPORT ---
DUPLEX AORTA/IVC/ILIACS LTD CLINICAL HISTORY: 66 years-old Female presenting with patency of ivc filter. TECHNIQUE: Real-time grayscale ultrasound imaging of the IVC was performed. Color and spectral Doppler were also performed. COMPARISON: 02/10/2017. FINDINGS: The IVC is visualized along the infrahepatic and mid abdominal portions, which are patent. Normal phasicity on spectral Doppler. Evaluation of the lower IVC limited due to patient intolerance. IMPRESSION: 1. Visualized portions of the IVC patent. Electronically signed by: Samuel Aguilar M.D. 02/15/2017 7:12 PM Dictated Date/Time: 02/15/2017 7:10 PM
[2017-02-15 19:16] LABS: HEMATOCRIT 31.2 % (37-47)
--- NOTE | 2017-02-15 19:16 | DIAGNOSTIC IMAGING REPORT ---
CHEST ONE VIEW PORTABLE CLINICAL HISTORY: 66 years-old Female presenting with infiltrate?. TECHNIQUE: Portable upright AP view of the chest was obtained. COMPARISON: 02/10/[address] of the abdomen and pelvis performed the same day. FINDINGS: Atherosclerosis of the aortic arch. Prominence of the superior mediastinal contour likely due to mediastinal lipomatosis. Cardiac silhouette top normal in size. Lungs and pleural spaces clear. Osseous structures normal. Upper abdomen normal. IMPRESSION: 1. No acute cardiopulmonary disease. Electronically signed by: Samuel Aguilar M.D. 02/15/2017 7:14 PM Dictated Date/Time: 02/15/2017 7:12 PM
[2017-02-16] MEDS: SODIUM CHLORIDE 0.9% 1000ML 1,000 ML IV SCH ×3 (00:10→23:38)
[2017-02-16 03:26] VITALS: BP 171/77; PULSE 94; TEMP 36.3; O2SAT 95
[2017-02-16] MEDS: LEVOTHYROXINE 100 MCG TAB PO SCH (06:00)
[2017-02-16] MEDS: ONDANSETRON 8 MG TAB PO PRN (06:00)
[2017-02-16] MEDS: HYDROmorphone INJ 1 MG/ML SYR IV PRN ×4 (06:04→20:51)
[2017-02-16] MEDS ORDERED: HydrALAZINE HCL 20 MG/ML VIAL IV. PRN (06:30)
[2017-02-16 07:35] VITALS: BP 158/83; PULSE 81; TEMP 37; O2SAT 95
[2017-02-16] MEDS: ONDANSETRON INJ 2 MG/ML 2 ML VIAL IV PRN ×3 (07:43→20:51)
[2017-02-16] MEDS: FLUTICASONE PROPIONATE NA SPR 16 GM BTL SCH (07:43)
[2017-02-16] MEDS: CEFTRIAXONE SOD INJ 1,000 MG in DEXTROSE 5% 50ML 50 ML IV SCH (07:43)
[2017-02-16] MEDS: PANTOprazole SOD 40 MG TAB PO SCH ×2 (07:44→21:04)
[2017-02-16] MEDS: RANITIDINE HCL 150 MG TAB PO SCH ×2 (07:44→21:04)
[2017-02-16] MEDS: MIRABEGRON ER 25 MG TAB PO SCH (07:44)
[2017-02-16] MEDS: GABAPENTIN 100 MG CAP PO SCH ×3 (07:44→21:05)
[2017-02-16] MEDS: DULOXETINE HCL 60 MG CAP PO SCH (07:44)
[2017-02-16] MEDS: ATORVASTATIN 10 MG TAB PO SCH (07:44)
[2017-02-16 07:55] LABS: HEMATOCRIT 30.2 % (37-47); MEAN CORPUSCULAR HEMOGLOBIN 30.1 pg (25-34); MEAN CORPUSCULAR HGB CONC 33.1 g/dl (32-36); MEAN PLATELET VOLUME 9.5 fL (7.4-10.4); PLATELET COUNT 146 K/uL (130-400); RED BLOOD COUNT 3.32 M/uL (4.2-5.4); WHITE BLOOD COUNT 12.75 K/uL (4.8-10.8)
[2017-02-16 08:23] LABS: BASO % 0.2 %; BASO ABS # 0.03 K/uL (0-0.2); COMPLETE YES; EOS % 0.5 %; IG% 7.3 %; LYMPH % 8.4 %; LYMPH ABS # 1.07 K/uL (1.2-3.4); MONO % 12.2 %; NEUT % 71.4 %; POLYCHROMASIA 1+
[2017-02-16 08:29] LABS: ALT/SGPT 23 U/L (12-78); AST/SGOT 21 U/L (15-37); BLOOD UREA NITROGEN 22 mg/dl (7-18); CALCIUM 9.3 mg/dl (8.5-10.1); CARBON DIOXIDE 21 mmol/L (21-32); CHLORIDE 104 mmol/L (98-107); GLUCOSE 123 mg/dl (70-99); SODIUM 135 mmol/L (136-145)
[2017-02-16 08:34] LABS: ALKALINE PHOSPHATASE 165 U/L (45-117); INR 1.4 (0.9-1.1); PROTHROMBIN TIME (PATIENT) 15.5 SECONDS (9.0-12.0)
--- NOTE | 2017-02-16 09:12 | DIAGNOSTIC IMAGING REPORT ---
ABD/PELVIS NO IV OR ORAL CONT HISTORY: 66 years-old Female sbo. nausea/vomiting. ventral hernias? Acute nausea and vomiting. Follow-up study. COMPARISON: CT abdomen and pelvis 02/15/2017 TECHNIQUE: Multiple axial CT images of the abdomen and pelvis were obtained without contrast. A dose lowering technique was used consistent with the principals of JASMYN. FINDINGS: Small left pleural effusion with subsegmental left basilar atelectasis. No pneumoperitoneum identified. The inferior cardiac chambers are enlarged. Calcifications of the mitral annulus are noted. The liver, spleen and adrenal glands are unremarkable. Gallbladder appears surgically absent. There is moderate diffuse pancreatic atrophy. Cortical thinning of the bilateral kidneys are noted. No renal calculi or hydronephrosis. Ureters are within normal limits. Johnston catheter is noted within a collapsed or bladder lumen. Uterus and adnexa are unremarkable. There is moderate atherosclerosis of the abdominal aorta. No bulky retroperitoneal adenopathy. IVC catheter is noted within the infrarenal location. Dilated loops of small bowel with associated air-fluid levels are noted throughout the mid and lower abdomen measuring up to 3.0 cm with focal transition point noted along left aspect of the parastomal hernia as seen on image 310 of series 3. Collapsed small bowel is seen distally within the hernia sac and also within the right lower quadrant of the abdomen. The degree of dilation has not significantly changed from prior. No portal venous air or perforation. Colonic diverticulosis. No CT evidence of acute diverticulitis. Majority of the colon is collapsed. A portion of transverse colon is again seen partially extending 3 left intra-abdominal wall hernia as seen on image 29 of series 3 with diastases 2.6 cm. No associated proximal dilation to suggest obstruction at this level. Right lower quadrant loop ileostomy. Moderate diffuse body wall edema redemonstrated. Multiple ventral bone wall hernias are again seen, unchanged. Bones are moderately demineralized. 2 mm anterolisthesis L4 on L5 is likely secondary to severe facet arthropathy. Patient obesity noted. Severe osteoarthritis of the bilateral hips with large subcortical cysts of the bilateral femoral heads. IMPRESSION: 1. Stable exam from study dated 02/15/2017 with redemonstration of a low-grade small bowel obstruction with transition point noted involving a right lower quadrant parastomal hernia as described above. Degree of small bowel dilation has not changed from comparison. No pneumatosis or pneumoperitoneum identified. 2. Right lower quadrant loop ileostomy. Unchanged appearance of multiple ventral abdominal wall hernias. 3. Colonic diverticulosis without diverticulitis. 4. Small left pleural effusion and moderate diffuse body wall edema redemonstrated. 5. Johnston catheter noted within a collapsed urinary bladder lumen. 6. Severe joint space narrowing with prominent subcortical cystic changes of the bilateral femoral acetabular joints. The above report was generated using voice recognition software. It may contain grammatical, syntax or spelling errors. Electronically signed by: Arias Mckeon M.D. 02/16/2017 9:11 AM Dictated Date/Time: 02/16/2017 9:00 AM
[2017-02-16] MEDS ORDERED: NURSING VERBAL MED ORDER ONE (10:30)
[2017-02-16] MEDS: PROMETHAZINE HCL INJ 12.5 MG in SODIUM CHLORIDE 0.9% 50ML 50 ML IV PRN (10:55)
--- NOTE | 2017-02-16 11:19 | Surgery Progress Note ---
Surgery Progress Note Date of Service Feb 16, 2017. Subjective pt complaining of diffuse abdominal pain again this am with nausea/emesis denies leg pain Objective Vital Signs: Date Time Temp Pulse Resp B/P (MAP) Pulse Ox O2 Delivery O2 Flow Rate FiO2 02/16/17 08:00 Room Air 02/16/17 07:35 37.0 81 20 158/83 (108) 95 Room Air 02/16/17 03:26 36.3 94 16 171/77 (108) 95 Room Air 02/16/17 00:00 Room Air 02/15/17 23:31 36.8 94 16 175/78 (110) 96 Room Air 02/15/17 20:00 Room Air 02/15/17 19:42 36.9 89 18 175/83 (113) 92 Room Air 02/15/17 16:00 Room Air 02/15/17 15:35 36.7 80 18 173/75 (107) 96 Room Air 02/15/17 13:31 36.7 79 20 173/80 (111) 94 Room Air 02/15/17 13:05 86 16 179/76 96 02/15/17 12:35 73 16 172/81 93 02/15/17 12:20 84 16 176/76 95 02/15/17 12:01 36.8 87 20 157/82 98 02/15/17 12:00 Room Air 02/15/17 11:49 36.5 81 16 171/82 95 General Appearance: + mild distress Head: normocephalic, atraumatic Respiratory/Chest: no respiratory distress, no accessory muscle use Abdomen: non distended, soft, + pertinent finding (stoma pink/functioning. area on upper abdomen with chronic /purulent drainage. ) Extremities: + pertinent finding (hematoma essentially unchanged from yesterday. not expanding. ) Laboratory Results: Results Past 24 Hours Test 02/15/17 19:08 02/16/17 07:40 Range/Units Hemoglobin 9.9 10.0 12.0-16.0 g/dL Hematocrit 31.2 30.2 37-47 % Lactic Acid Level 1.7 0.4-2.0 mmol/L White Blood Count 12.75 4.8-10.8 K/uL Red Blood Count 3.32 4.2-5.4 M/uL Mean Corpuscular Volume 91.0 80-100 fL Mean Corpuscular Hemoglobin 30.1 25-34 pg Mean Corpuscular Hemoglobin Concent 33.1 32-36 g/dl Platelet Count 146 130-400 K/uL Mean Platelet Volume 9.5 7.4-10.4 fL Neutrophils (%) (Auto) 71.4 % Lymphocytes (%) (Auto) 8.4 % Monocytes (%) (Auto) 12.2 % Eosinophils (%) (Auto) 0.5 % Basophils (%) (Auto) 0.2 % Neutrophils # (Auto) 9.10 1.4-6.5 K/uL Lymphocytes # (Auto) 1.07 1.2-3.4 K/uL Monocytes # (Auto) 1.55 0.11-0.59 K/uL Eosinophils # (Auto) 0.07 0-0.5 K/uL Basophils # (Auto) 0.03 0-0.2 K/uL RDW Standard Deviation 52.4 36.4-46.3 fL RDW Coefficient of Variation 15.9 11.5-14.5 % Immature Granulocyte % (Auto) 7.3 % Immature Granulocyte # (Auto) 0.93 0.00-0.02 K/uL Nucleated RBC Absolute Count (auto) 0.67 0-0 K/uL Nucleated Red Blood Cells % 5.3 % Polychromasia 1+ Prothrombin Time 15.5 9.0-12.0 SECONDS Prothromb Time International Ratio 1.4 0.9-1.1 Sodium Level 135 136-145 mmol/L Potassium Level 4.0 3.5-5.1 mmol/L Chloride Level 104 98-107 mmol/L Carbon Dioxide Level 21 21-32 mmol/L Anion Gap 10.0 3-11 mmol/L Blood Urea Nitrogen 22 7-18 mg/dl Creatinine 1.20 0.60-1.20 mg/dl Est Creatinine Clear Calc Drug Dose 46.9 ml/min Estimated GFR () 53.8 Estimated GFR (Non- 46.4 BUN/Creatinine Ratio 18.0 10-20 Random Glucose 123 70-99 mg/dl Calcium Level 9.3 8.5-10.1 mg/dl Magnesium Level 2.0 1.8-2.4 mg/dl Total Bilirubin 0.6 0.2-1 mg/dl Direct Bilirubin 0.2 0-0.2 mg/dl Aspartate Amino Transf (AST/SGOT) 21 15-37 U/L Alanine Aminotransferase (ALT/SGPT) 23 12-78 U/L Alkaline Phosphatase 165 45-117 U/L Troponin I < 0.015 0-0.045 ng/ml Total Protein 6.0 6.4-8.2 gm/dl Albumin 2.3 3.4-5.0 gm/dl Assessment & Plan 02/16/17 1.PSBO...CT shows essentially no change pt refusing NGT attempt as she states " nobody is ever able to get it in for years now" Keep NPO/IVF/Supportive care if does not clinically resolve or worsens, would rec transfer to [facility] for definitive care in this extremely high risk pt currently no urgent need for surgery INR still 1.4. would keep off coumadin 2. leg hematoma stable. wbc decreased to 12 INR still 1.4 will continue to eval day to day. may still need I & D with vac placement but no urgent indication 02/15/17 1. ileus /sbo clinically improved. can try liquids. NPO after midnight. can hold on ngt for now as pt is doing/feeling better. 2. LE hematoma INR increased to 1.4 requiring PRBC transfusion today no pain currently will hold OR for now. recheck INR. will eval day to day. if WBC climbs will definitely need I&D. keep NPO after midnight each day for possible OR cont to hold coumadin 1. ileus /sbo clinically improved. can try liquids. NPO after midnight. can hold on ngt for now as pt is doing/feeling better. 2. LE hematoma INR increased to 1.4 requiring PRBC transfusion today no pain currently will hold OR for now. recheck INR. will eval day to day. if WBC climbs will definitely need I&D. keep NPO after midnight each day for possible OR cont to hold coumadin
[2017-02-16 12:14] VITALS: BP 163/79; PULSE 88; TEMP 36.3; O2SAT 5
[2017-02-16] MEDS ORDERED: DICYCLOMINE HCL 20 MG TAB PO PRN (12:45)
[2017-02-16 15:40] VITALS: BP 173/80; PULSE 65; TEMP 37.1; O2SAT 92
--- NOTE | 2017-02-16 15:41 | DIAGNOSTIC IMAGING REPORT ---
ART DOP LOWER EXT BILAT HISTORY: 66 years-old Female stenosis or occlusion hypokalemia with swelling of the lower extremities. COMPARISON: Duplex study 02/15/2017 TECHNIQUE: Multiple real-time sonographic images of the arterial structures of the lower extremities bilaterally were obtained assessing grayscale appearance, color and spectral flow. FINDINGS: The study is limited secondary to patient body habitus and lower extremity edema. Patient was unable to stay still throughout the exam. Extensive deep venous thrombosis noted throughout the lower extremities. RIGHT LOWER EXTREMITY: Triphasic waveforms are noted within the common femoral, profunda femoris, superficial femoral, popliteal, posterior tibial, peroneal, anterior tibial and dorsalis pedis arteries. Peak systolic velocity 109 cm/s noted within the superficial femoral artery. LEFT LOWER EXTREMITY: Triphasic waveforms are noted within the common femoral, profunda femoris, superficial femoral, popliteal, posterior tibial, peroneal, anterior tibial and dorsalis pedis arteries. Stocks velocity of 139 cm/s is noted within the posterior tibial artery. The systolic velocity 113 cm/s noted within the superficial femoral artery. IMPRESSION: 1. Patent triphasic waveforms are noted within the lower extremity arterial structures bilaterally as above. 2. Extensive deep venous thrombosis noted bilaterally. This finding could be correlated with dedicated Doppler venous study. 3. Limited exam as above. The above report was generated using voice recognition software. It may contain grammatical, syntax or spelling errors. Electronically signed by: Arias Mckeon M.D. 02/16/2017 3:39 PM Dictated Date/Time: 02/16/2017 3:29 PM
--- NOTE | 2017-02-16 19:16 | Progress Note ---
Internal Med Progress Note Date of Service: Feb 16, 2017. Provider Documentation: SUBJECTIVE: still has nausea luq abdominal pain on and off has some lower extremity pain afebrile could not place NG tube no sob hemodynamics stable OBJECTIVE: Vital Signs-as noted below Exam: General-alert and awake. not in distress ENT-normal hearing Neck-no neck masses supple Lungs-cta b/l no wheezing or crackles Heart-s1 and s2 heard regular no murmurs Abdomen-soft bowel sounds sluggish mild LUQ tender has colostomy bag. Has chronic mid abdominal wall wound. Extremities-right lower extremity in dressing. left lower extremity tender and swollen purplish discoloration -pedal pulse audible for Doppler Neuro-alert and awake moves extremities Lab data as noted below. ASSESSMENT & PLAN: EXTENSIVE DVT LEFT LOWER EXTREMITY As per H and P: Prior history of DVT LLE and pulmonary embolism in setting of acute illness / ICU hospitalization in 2013. IVC filter placed at that time Subsequently placed on warfarin, but it was stopped about 2 months ago due to fall risk." presents with extensive LLE DVT Heparin and Coumadin started but are held for anemia and large right lower extremity hematoma. Seen by vascular surgery and appreciate inputs US to check patency of IVC filter- seems patent restarting iv heparin close monitor Dusky discoloration of the left lower extremity Doppler exam showed good flow Vascular Surgery was consulted-observe bilater arterial doppler done- unremarkable for flow but showing b/l dvt Right Mid Leg Hematoma which Ruptured and heparin was held initially large and deep purish surgery closely following may need evacuation surgery ok to restart iv heparin Anemia acute blood loss from above hb 7.5 02/15/17 transfused two units f/u h and h, hb 10.0 today SBO nausea on gentle fluids pain control surgery on board now complains of RUQ abdominal pain- may repeat ct scan as patient has ventral hernias if pain gets worse lactic acid ok repeat ct abd/pelvis -same could not place ng tube pain control, iv fluids, npo and if no improvement and if needs surgery- Surgery recommends transfer to [place] will monitor ACUTE KIDNEY INJURY History CKD III. presented with Serum creatinine now 3, compared to baseline of 1.4 on 12/03/16. fluids as per nephrology cr 1.2today f/u labs Possible UTI on Rocephin#6 cx no growth so far. HISTORY PUD On ranitidine. HYPOTHYROIDISM On levothyroxine. VTE PROPHYLAXIS IV heparin RESUSCITATION STATUS Full code. DISPOSITION Monitor in Telemetry Unit. Discharge disposition to be determined. pt/ot when stable Family Medicine follow-up with Dr. Myrick. Vital Signs: Date Time Temp Pulse Resp B/P (MAP) Pulse Ox O2 Delivery O2 Flow Rate FiO2 02/16/17 16:00 Room Air 02/16/17 15:40 37.1 65 18 173/80 (111) 92 Room Air 02/16/17 12:14 36.3 88 22 163/79 (107) Room Air 94.0 02/16/17 12:00 Room Air 02/16/17 08:00 Room Air 02/16/17 07:35 37.0 81 20 158/83 (108) 95 Room Air 02/16/17 03:26 36.3 94 16 171/77 (108) 95 Room Air 02/16/17 00:00 Room Air 02/15/17 23:31 36.8 94 16 175/78 (110) 96 Room Air 02/15/17 20:00 Room Air 02/15/17 19:42 36.9 89 18 175/83 (113) 92 Room Air Lab Results: Results Past 24 Hours Test 02/15/17 19:08 02/16/17 07:40 Range/Units Hemoglobin 9.9 10.0 12.0-16.0 g/dL Hematocrit 31.2 30.2 37-47 % Lactic Acid Level 1.7 0.4-2.0 mmol/L White Blood Count 12.75 4.8-10.8 K/uL Red Blood Count 3.32 4.2-5.4 M/uL Mean Corpuscular Volume 91.0 80-100 fL Mean Corpuscular Hemoglobin 30.1 25-34 pg Mean Corpuscular Hemoglobin Concent 33.1 32-36 g/dl Platelet Count 146 130-400 K/uL Mean Platelet Volume 9.5 7.4-10.4 fL Neutrophils (%) (Auto) 71.4 % Lymphocytes (%) (Auto) 8.4 % Monocytes (%) (Auto) 12.2 % Eosinophils (%) (Auto) 0.5 % Basophils (%) (Auto) 0.2 % Neutrophils # (Auto) 9.10 1.4-6.5 K/uL Lymphocytes # (Auto) 1.07 1.2-3.4 K/uL Monocytes # (Auto) 1.55 0.11-0.59 K/uL Eosinophils # (Auto) 0.07 0-0.5 K/uL Basophils # (Auto) 0.03 0-0.2 K/uL RDW Standard Deviation 52.4 36.4-46.3 fL RDW Coefficient of Variation 15.9 11.5-14.5 % Immature Granulocyte % (Auto) 7.3 % Immature Granulocyte # (Auto) 0.93 0.00-0.02 K/uL Nucleated RBC Absolute Count (auto) 0.67 0-0 K/uL Nucleated Red Blood Cells % 5.3 % Polychromasia 1+ Prothrombin Time 15.5 9.0-12.0 SECONDS Prothromb Time International Ratio 1.4 0.9-1.1 Sodium Level 135 136-145 mmol/L Potassium Level 4.0 3.5-5.1 mmol/L Chloride Level 104 98-107 mmol/L Carbon Dioxide Level 21 21-32 mmol/L Anion Gap 10.0 3-11 mmol/L Blood Urea Nitrogen 22 7-18 mg/dl Creatinine 1.20 0.60-1.20 mg/dl Est Creatinine Clear Calc Drug Dose 46.9 ml/min Estimated GFR () 53.8 Estimated GFR (Non- 46.4 BUN/Creatinine Ratio 18.0 10-20 Random Glucose 123 70-99 mg/dl Calcium Level 9.3 8.5-10.1 mg/dl Magnesium Level 2.0 1.8-2.4 mg/dl Total Bilirubin 0.6 0.2-1 mg/dl Direct Bilirubin 0.2 0-0.2 mg/dl Aspartate Amino Transf (AST/SGOT) 21 15-37 U/L Alanine Aminotransferase (ALT/SGPT) 23 12-78 U/L Alkaline Phosphatase 165 45-117 U/L Troponin I < 0.015 0-0.045 ng/ml Total Protein 6.0 6.4-8.2 gm/dl Albumin 2.3 3.4-5.0 gm/dl
[2017-02-16 19:40] VITALS: BP 168/78; PULSE 94; TEMP 36.4; O2SAT 96
[2017-02-16] MEDS ORDERED: HEPARIN IV BOLUS 4,000 UNIT in SYRINGE 0 ML IV ONE (19:45)
[2017-02-16] MEDS: HEPARIN 25,000 UNIT/500ML D5W 500 ML IV PRN ×2 (20:55→23:37)
[2017-02-16 23:20] VITALS: BP 178/83; PULSE 85; TEMP 36.6; O2SAT 95
[2017-02-17 03:38] VITALS: BP 162/75; PULSE 87; TEMP 36.8; O2SAT 93
[2017-02-17] MEDS: HYDROmorphone INJ 1 MG/ML SYR IV PRN ×5 (05:55→20:39)
[2017-02-17] MEDS: ONDANSETRON INJ 2 MG/ML 2 ML VIAL IV PRN ×3 (06:05→20:39)
[2017-02-17] MEDS: LEVOTHYROXINE 100 MCG TAB PO SCH (06:07)
[2017-02-17] MEDS: SODIUM CHLORIDE 0.9% 1000ML 1,000 ML IV SCH (07:16)
[2017-02-17 07:44] LABS: HEMATOCRIT 28.3 % (37-47); MEAN CELL VOLUME 92.2 fL (80-100); MEAN CORPUSCULAR HEMOGLOBIN 29.6 pg (25-34); MEAN CORPUSCULAR HGB CONC 32.2 g/dl (32-36); MEAN PLATELET VOLUME 9.7 fL (7.4-10.4); PLATELET COUNT 163 K/uL (130-400); RED BLOOD COUNT 3.07 M/uL (4.2-5.4); WHITE BLOOD COUNT 9.97 K/uL (4.8-10.8)
--- NOTE | 2017-02-17 07:52 | Surgery Progress Note ---
Surgery Progress Note Date of Service Feb 17, 2017. Subjective continues to have mild abdominal discomfort. no n/v currently. mild RLE discomfort Objective Vital Signs: Date Time Temp Pulse Resp B/P (MAP) Pulse Ox O2 Delivery O2 Flow Rate FiO2 02/17/17 04:00 Room Air 02/17/17 03:38 36.8 87 16 162/75 (104) 93 Room Air 02/17/17 00:00 Room Air 02/16/17 23:20 36.6 85 20 178/83 (114) 95 Room Air 02/16/17 19:40 36.4 94 18 168/78 (108) 96 Room Air 02/16/17 16:00 Room Air 02/16/17 15:40 37.1 65 18 173/80 (111) 92 Room Air 02/16/17 12:14 36.3 88 22 163/79 (107) Room Air 94.0 02/16/17 12:00 Room Air 02/16/17 08:00 Room Air General Appearance: no apparent distress Head: atraumatic Respiratory/Chest: no respiratory distress, no accessory muscle use Abdomen: non tender, soft, + pertinent finding (stoma looks pink with small amount of formed stool in bag. ) Extremities: + pertinent finding (hematoma essentially unchanged. minimal tenderness) Laboratory Results: Results Past 24 Hours Test 02/17/17 07:30 Range/Units White Blood Count 9.97 4.8-10.8 K/uL Red Blood Count 3.07 4.2-5.4 M/uL Hemoglobin 9.1 12.0-16.0 g/dL Hematocrit 28.3 37-47 % Mean Corpuscular Volume 92.2 80-100 fL Mean Corpuscular Hemoglobin 29.6 25-34 pg Mean Corpuscular Hemoglobin Concent 32.2 32-36 g/dl Platelet Count 163 130-400 K/uL Mean Platelet Volume 9.7 7.4-10.4 fL RDW Standard Deviation 52.8 36.4-46.3 fL RDW Coefficient of Variation 15.8 11.5-14.5 % Nucleated RBC Absolute Count (auto) 0.25 0-0 K/uL Nucleated Red Blood Cells % 2.5 % Assessment & Plan 02/16/17 1.PSBO...CT shows essentially no change pt refusing NGT attempt as she states " nobody is ever able to get it in for years now" Keep NPO/IVF/Supportive care if does not clinically resolve or worsens, would rec transfer to [place] for definitive care in this extremely high risk pt currently no urgent need for surgery INR still 1.4. would keep off coumadin 2. leg hematoma stable. wbc decreased to 12 INR still 1.4 will continue to eval day to day. may still need I & D with vac placement but no urgent indication 02/15/17 1. ileus /sbo clinically improved. can try liquids. NPO after midnight. can hold on ngt for now as pt is doing/feeling better. 2. LE hematoma INR increased to 1.4 requiring PRBC transfusion today no pain currently will hold OR for now. recheck INR. will eval day to day. if WBC climbs will definitely need I&D. keep NPO after midnight each day for possible OR cont to hold coumadin 02/17/17 1. PSBO pt extremely high surgical risk so will exhaust conservative tx /surgery as last resort will recheck KUB today unable to place ngt keep npo/ivf 2. LE hematoma. minimal symptoms no sign clinically of infection will continue to monitor for now. if febrile or wbc goes up may need to evacuate again, high risk for anesthesia AM labs still pending. 02/16/17 1.PSBO...CT shows essentially no change pt refusing NGT attempt as she states " nobody is ever able to get it in for years now" Keep NPO/IVF/Supportive care if does not clinically resolve or worsens, would rec transfer to [place] for definitive care in this extremely high risk pt currently no urgent need for surgery INR still 1.4. would keep off coumadin 2. leg hematoma stable. wbc decreased to 12 INR still 1.4 will continue to eval day to day. may still need I & D with vac placement but no urgent indication 02/15/17 1. ileus /sbo clinically improved. can try liquids. NPO after midnight. can hold on ngt for now as pt is doing/feeling better. 2. LE hematoma INR increased to 1.4 requiring PRBC transfusion today no pain currently will hold OR for now. recheck INR. will eval day to day. if WBC climbs will definitely need I&D. keep NPO after midnight each day for possible OR cont to hold coumadin
[2017-02-17 08:04] LABS: INR 1.3 (0.9-1.1); PARTIAL THROMBOPLASTIN RATIO 3.9
[2017-02-17 08:10] VITALS: BP 124/71; PULSE 83; TEMP 37.1; O2SAT 95
[2017-02-17 08:14] LABS: BASO % 0.3 %; BASO ABS # 0.03 K/uL (0-0.2); COMPLETE YES; EOS % 1.4 %; IG% 6.1 %; LYMPH % 10.3 %; LYMPH ABS # 1.03 K/uL (1.2-3.4); MONO % 16.2 %; NEUT % 65.7 %; POLYCHROMASIA 1+
[2017-02-17 08:17] LABS: BUN/CREATININE RATIO 17.8 (10-20); CALCIUM 8.6 mg/dl (8.5-10.1); POTASSIUM 3.6 mmol/L (3.5-5.1)
[2017-02-17] MEDS: CEFTRIAXONE SOD INJ 1,000 MG in DEXTROSE 5% 50ML 50 ML IV SCH (08:56)
[2017-02-17] MEDS: FLUTICASONE PROPIONATE NA SPR 16 GM BTL SCH (09:12)
[2017-02-17] MEDS: PANTOprazole SOD 40 MG TAB PO SCH (09:13)
[2017-02-17] MEDS: RANITIDINE HCL 150 MG TAB PO SCH (09:13)
[2017-02-17] MEDS: ATORVASTATIN 10 MG TAB PO SCH (09:14)
[2017-02-17] MEDS: MIRABEGRON ER 25 MG TAB PO SCH (09:14)
[2017-02-17] MEDS: DULOXETINE HCL 60 MG CAP PO SCH (09:14)
[2017-02-17] MEDS: GABAPENTIN 100 MG CAP PO SCH ×2 (09:15→14:00)
--- NOTE | 2017-02-17 09:28 | DIAGNOSTIC IMAGING REPORT ---
KUB HISTORY: Small bowel obstruction. COMPARISON: Abdomen and pelvis CT 02/16/2017. FINDINGS: Suboptimal study due to the patient's body habitus. There again noted a few dilated loops of gas-filled small bowel seen within the abdomen. These measure up to 3.7 cm in diameter. This is similar to the prior study and is consistent with the small bowel obstruction. Multiple pelvic phleboliths and a few sigmoid diverticula containing barium are again noted. There is an IVC filter present. Moderate osteoarthritis within the bilateral hips. No renal calculi. No ureteral calculi. No pneumoperitoneum or pneumatosis. IMPRESSION: No change in the dilated loops of small bowel consistent with an obstruction. Electronically signed by: Sarthak Gee M.D. 02/17/2017 9:26 AM Dictated Date/Time: 02/17/2017 9:25 AM
[2017-02-17] MEDS: PROMETHAZINE HCL INJ 12.5 MG in SODIUM CHLORIDE 0.9% 50ML 50 ML IV PRN ×2 (09:45→17:55)
[2017-02-17 12:46] VITALS: BP 133/77; PULSE 87; TEMP 36.6; O2SAT 92
[2017-02-17 15:03] LABS: PARTIAL THROMBOPLASTIN RATIO 1.2
--- NOTE | 2017-02-17 15:14 | Progress Note ---
Internal Med Progress Note Date of Service: Feb 17, 2017. Provider Documentation: SUBJECTIVE: still has nausea and vomited about 700ml vomitus today still has abdominal pain on and off has some lower extremity pain afebrile hemodynamics stable ok for transfer to [place] OBJECTIVE: Vital Signs-as noted below Exam: General-alert and awake. not in distress ENT-normal hearing Neck-no neck masses supple Lungs-cta b/l no wheezing or crackles Heart-s1 and s2 heard regular no murmurs Abdomen-soft bowel sounds sluggish mild LUQ tender has colostomy bag. Has chronic mid abdominal wall wound. Extremities-right lower extremity in dressing. left lower extremity tender and swollen purplish discoloration -pedal pulse audible for Doppler Neuro-alert and awake moves extremities Lab data as noted below. ASSESSMENT & PLAN: EXTENSIVE DVT LEFT LOWER EXTREMITY As per H and P: Prior history of DVT LLE and pulmonary embolism in setting of acute illness / ICU hospitalization in 2013. IVC filter placed at that time Subsequently placed on warfarin, but it was stopped about 2 months ago due to fall risk." presents with extensive LLE DVT Heparin and Coumadin started but are held for anemia and large right lower extremity hematoma. Seen by vascular surgery and appreciate inputs US to check patency of IVC filter- seems patent restarting iv heparin Transferring to [place] today for further care Dusky discoloration of the left lower extremity Doppler exam showed good flow Vascular Surgery was consulted-observe bilateral arterial Doppler done on 02/16/17 unremarkable for flow but showing B/ L DVT Right Mid Leg Hematoma which Ruptured and heparin was held initially large and deep purplish surgery closely following may need evacuation surgery ok to restart iv heparin transferring To [place] for further care Anemia acute blood loss from above hb 7.5 02/15/17 transfused two units f/u h and h, hb 9.[address] scan 02/15/17 nausea on fluids pain control surgery on board now complains of RUQ abdominal pain- may repeat ct scan as patient has ventral hernias if pain gets worse lactic acid ok repeat ct abd/pelvis 02/16/17 -same could not place ng tube even after multiple attempts pain control, iv fluids, npo and if no improvement and if needs surgery- Surgery recommends transfer to [place] still symptomatic and vomited 700ml vomitus today Transferring to [place] ACUTE KIDNEY INJURY on History CKD III. presented with Serum creatinine now 3, compared to baseline of 1.4 on 12/03/16. fluids as per nephrology cr 1.0today f/u labs Possible UTI on Rocephin#7 cx no growth so far. will stop abx HISTORY PUD On ranitidine. HYPOTHYROIDISM On levothyroxine. VTE PROPHYLAXIS IV heparin RESUSCITATION STATUS Full code. DISPOSITION Transferring To [place] for further management of this complex patient Vital Signs: Date Time Temp Pulse Resp B/P (MAP) Pulse Ox O2 Delivery O2 Flow Rate FiO2 02/17/17 12:46 36.6 87 18 133/77 (95) 92 Room Air 02/17/17 12:00 Room Air 02/17/17 08:10 37.1 83 18 124/71 (88) 95 02/17/17 08:00 Room Air 02/17/17 04:00 Room Air 02/17/17 03:38 36.8 87 16 162/75 (104) 93 Room Air 02/17/17 00:00 Room Air 02/16/17 23:20 36.6 85 20 178/83 (114) 95 Room Air 02/16/17 19:40 36.4 94 18 168/78 (108) 96 Room Air 02/16/17 16:00 Room Air 02/16/17 15:40 37.1 65 18 173/80 (111) 92 Room Air Lab Results: Results Past 24 Hours Test 02/17/17 07:30 02/17/17 14:42 Range/Units White Blood Count 9.97 4.8-10.8 K/uL Red Blood Count 3.07 4.2-5.4 M/uL Hemoglobin 9.1 12.0-16.0 g/dL Hematocrit 28.3 37-47 % Mean Corpuscular Volume 92.2 80-100 fL Mean Corpuscular Hemoglobin 29.6 25-34 pg Mean Corpuscular Hemoglobin Concent 32.2 32-36 g/dl Platelet Count 163 130-400 K/uL Mean Platelet Volume 9.7 7.4-10.4 fL Neutrophils (%) (Auto) 65.7 % Lymphocytes (%) (Auto) 10.3 % Monocytes (%) (Auto) 16.2 % Eosinophils (%) (Auto) 1.4 % Basophils (%) (Auto) 0.3 % Neutrophils # (Auto) 6.54 1.4-6.5 K/uL Lymphocytes # (Auto) 1.03 1.2-3.4 K/uL Monocytes # (Auto) 1.62 0.11-0.59 K/uL Eosinophils # (Auto) 0.14 0-0.5 K/uL Basophils # (Auto) 0.03 0-0.2 K/uL RDW Standard Deviation 52.8 36.4-46.3 fL RDW Coefficient of Variation 15.8 11.5-14.5 % Immature Granulocyte % (Auto) 6.1 % Immature Granulocyte # (Auto) 0.61 0.00-0.02 K/uL Nucleated RBC Absolute Count (auto) 0.25 0-0 K/uL Nucleated Red Blood Cells % 2.5 % Polychromasia 1+ Prothrombin Time 14.0 9.0-12.0 SECONDS Prothromb Time International Ratio 1.3 0.9-1.1 Activated Partial Thromboplast Time 101.4 31.8 21.0-31.0 SECONDS Partial Thromboplastin Ratio 3.9 1.2 Sodium Level 139 136-145 mmol/L Potassium Level 3.6 3.5-5.1 mmol/L Chloride Level 106 98-107 mmol/L Carbon Dioxide Level 21 21-32 mmol/L Anion Gap 12.0 3-11 mmol/L Blood Urea Nitrogen 18 7-18 mg/dl Creatinine 1.00 0.60-1.20 mg/dl Est Creatinine Clear Calc Drug Dose 56.0 ml/min Estimated GFR () 67.0 Estimated GFR (Non- 57.8 BUN/Creatinine Ratio 17.8 10-20 Random Glucose 114 70-99 mg/dl Calcium Level 8.6 8.5-10.1 mg/dl
--- NOTE | 2017-02-17 15:22 | Discharge Instructions ---
Discharge Instructions Date of Service Feb 17, 2017. Admission Reason for Admission: Lower Ext Dvt;Hypokalemia Discharge Discharge Diagnosis / Problem: b/l Lower EXT extensive DVT, ARF, SBO, Hematoma , anemia Discharge Goals Goal(s): Decrease discomfort, Improve function, Increase independence Activity Recommendations Activity Level: Assistance Required . Additional Information Patient informed of condition: Yes Advance Directives: Yes DNR: No Level of Care: Other (Transferring to [place]) Communicable Disease: No Prognosis: Stable [place] Catheter: Yes Instructions / Follow-Up Instructions / Follow-Up FOLLOWUP PER [facility] RECOMMENDATIONS Current Hospital Diet Patient's current hospital diet: AHA Diet (Heart Healthy) Discharge Diet Recommended Diet: N/A (NPO) Pending Studies Studies pending at discharge: no Physician Orders On Transfer Special Precautions: FALL AND ASPIRATION PRECAUTIONS IV Therapy: IV NS@100ML/HR Vital Signs: EVERY 8HRS Additional Orders: PLEASE CHECK MEDICATION RECONCILIATION FOR ACCURATE MEDICATION LIST Medical Emergencies . Who to Call and When: Medical Emergencies: If at any time you feel your situation is an emergency, please call 911 immediately. . Non-Emergent Contact Non-Emergency issues call your: Primary Care Provider . . "Provider Documentation" section prepared by Enrqiue Rodrigues. . Core Measure Problem Core Measures: None
--- NOTE | 2017-02-17 15:31 | Discharge Summary ---
Discharge Summary Date of Service Feb 17, 2017. Discharge Summary Admission Date: Feb 09, 2017 at 22:46 Discharge Date: Feb 17, 2017 Discharge Disposition: Acute care facility ([facility]) Principal Diagnosis: B/L LOWER EXTREMITY EXTENSIVE DVT ARF LARGE LEFT LOWER EXTREMITY HEMATOMA ANEMIA SBO UTI? Secondary Diagnoses/Problems: 1) BMI 40.0-44.9, adult Status: Chronic (2) Chronic kidney disease (CKD), stage III (moderate) Status: Chronic (3) Degenerative arthritis of knee Status: Chronic (4) Dyslipidemia Status: Chronic (5) History of peritonitis Permanent Comment: 2013 [facility] perforated gastric ulcer, abscess Status: Chronic (6) Hypertension Status: Chronic (7) Hypothyroidism Status: Chronic (8) Pulmonary embolism Permanent Comment: 2013 during ICU illness Status: Chronic Procedures: RENAL US: 1. No hydronephrosis. 2. Moderate to severe bilateral cortical renal atrophy. AORTIC US 02/10/17: 1. IVC filter in place. IVC is patent at and above the level of the IVC filter. The distal IVC is poorly visualized due to bowel gas. CXR: No acute process. CT HEAD: 1. No acute intracranial pathology. CT ABD/PELVIS: 02/15/17: IMPRESSION: 1. Findings consistent with early small bowel obstruction with a transition point along the left aspect of the parastomal hernia sac as described above. 2. Postsurgical changes of right lower quadrant loop ileostomy. 3. Multiple ventral hernias. One apparent hernia contains the mid transverse colon, although this may be intentional surgical fixation of the colon at this point. 4. Osteopenia. 5. Anasarca. The predominant anasarca in the bilateral lower extremities and lower abdomen in the the presence of an IVC this could raise concern for patency of the IVC. This is not assessed without intravenous contrast. Consideration for ultrasound or contrast-enhanced cross-sectional imaging as clinically warranted. AORTIC US: 02/15/17: 1. Visualized portions of the IVC patent CT ABD/PELVIS 02/16/17: 1. Stable exam from study dated 02/15/2017 with redemonstration of a low-grade small bowel obstruction with transition point noted involving a right lower quadrant parastomal hernia as described above. Degree of small bowel dilation has not changed from comparison. No pneumatosis or pneumoperitoneum identified. 2. Right lower quadrant loop ileostomy. Unchanged appearance of multiple ventral abdominal wall hernias. 3. Colonic diverticulosis without diverticulitis. 4. Small left pleural effusion and moderate diffuse body wall edema redemonstrated. 5. Johnston catheter noted within a collapsed urinary bladder lumen. 6. Severe joint space narrowing with prominent subcortical cystic changes of the bilateral femoral acetabular joints. B/L LOWER EXTREMITY ARTERIAL DOPPLER: 02/16/17: 1. Patent triphasic waveforms are noted within the lower extremity arterial structures bilaterally as above. 2. Extensive deep venous thrombosis noted bilaterally. This finding could be correlated with dedicated Doppler venous study. KUB 02/17/17: No change in the dilated loops of small bowel consistent with an obstruction. Consultations: VASCULAR SURGERY GENERAL SURGERY NEPHROLOGY Medication Reconciliation Continued Medications: Atorvastatin (Lipitor) 10 Mg Tab 10 MG PO DAILY Buspirone Hcl (Buspirone Hcl) 10 Mg Tab 10 MG PO TID, TAB Duloxetine Hcl (Cymbalta) 60 Mg Cap 60 MG PO DAILY, CAP Ergocalciferol (Vitamin D 00682 Unit) 50,000 Unit Cap 15041 UNIT PO WK, CAP Fluticasone Propionate (Nasal) (Flonase Allergy Relief) 50 Mcg/Act Spr 1 SPRAY NA DAILY Furosemide (Lasix) 40 Mg Tab 40 MG PO DAILY for as needed for edema or wt gain, TAB Gabapentin (Neurontin) 100 Mg Cap 0 PO UD, CAP Take 1 pill in the morning and at noon. Take 2 pills at bedtime. Levothyroxine Sodium (Levothyroxine Sodium) 100 Mcg Tab 100 MCG PO DAILY Loratadine (Bulk) (Loratadine) 1 Pow Pow 10 MG PO DAILY PRN for as needed for congestion Lorazepam (Ativan) 0.5 Mg Tab 0.5 MG PO DAILY PRN for Anxiety, TAB Mirabegron (Myrbetriq Er) 25 Mg Tab 25 MG PO DAILY, TAB Mometasone Furoate (Inhalation (Asmanex Hfa) 200 Mcg/Act Aer INH 1-2 PUFFS BID PRN Ondansetron Hcl (Zofran) 8 Mg Tab 8 MG PO TID PRN for Nausea, TAB Pantoprazole (Protonix) 40 Mg Tab 40 MG PO BID Propranolol (Inderal) 10 Mg Tab 10 MG PO BID PRN for Anxiety, TAB Ranitidine Hcl (Zantac) 150 Mg Tab 150 MG PO BID Tramadol (Ultram) 50 Mg Tab 50 MG PO Q6H PRN for Pain, TAB Discontinued Medications: Acetaminophen Tab (Tylenol) 325 Mg Tab 325 MG PO Q4 PRN for PRN for mild pain, TAB Admission Information HPI (per Admitting provider): 62-year-old female followed by Dr. Myrick. History of pulmonary embolism in 2013 associated with a prolonged illness at [facility] with peritonitis/sepsis secondary to perforated gastric ulcer. IVC filter was placed. Subsequently placed on warfarin Warfarin discontinued about 2 months ago because of concern about poor risk. 2 days prior to admission patient developed swelling of her left leg. She was evaluated in the ED at [facility] and thought to have a cellulitis. Antibiotics prescribed, but patient had not filled. Swelling of the left lower extremity worsened and she was seen in the ED at [facility] earlier today. Experiencing some discomfort of the leg, but not severe pain. She was found to have extensive DVT in the left lower extremity. Also found to have acute kidney injury. Referred to [facility] for further evaluation and management. . Physical Exam (per Admitting): General Appearance: no apparent distress, + obese Head: normocephalic, atraumatic Eyes: PERRL, EOMI, sclerae normal (conjunctivae pink) ENT: hearing grossly normal, pharynx normal, + pertinent finding (dentition poor) Neck: supple, no adenopathy, thyroid normal, no JVD, trachea midline Respiratory/Chest: lungs clear, no respiratory distress, no accessory muscle use Cardiovascular: regular rate, rhythm, no edema, no JVD, no murmur, + abnormal peripheral pulses (diminished), + pertinent finding (1+ pretibial edema RLE, 3-4+ pretibial edema LLE; capillary refill right toes ~ 2 sec, left otes ~ 3 sec) Abdomen/GI: normal bowel sounds, non tender, soft, no organomegaly (exam limited), no pulsatile mass Extremities/Musculoskelatal: + pertinent finding (marked swelling of LLE with phlegmasia cerulea) Neurologic/Psych: senior sql server dba II-XII nml as tested (PERRL, EOMI; no facial palsy; no dysarthria), no motor/sensory deficits (motor exam limited, but grossly intact), alert, normal mood/affect, normal reflexes (plantar reflexes downgoing) , oriented x 3, + abnormal reflexes (patellar reflexes 1/2 bilat) Skin: warm/dry Lymphatic: no adenopathy (cervical) Hospital Course EXTENSIVE DVT LEFT LOWER EXTREMITY As per H and P: Prior history of DVT LLE and pulmonary embolism in setting of acute illness / ICU hospitalization in 2013. IVC filter placed at that time Subsequently placed on warfarin, but it was stopped about 2 months ago due to fall risk." presents with extensive LLE DVT Heparin and Coumadin started but are held for anemia and large right lower extremity hematoma. Seen by vascular surgery and appreciate inputs US to check patency of IVC filter- seems patent restarting iv heparin Transferring to [facility] today for further care Dusky discoloration of the left lower extremity Doppler exam showed good flow Vascular Surgery was consulted-observe bilateral arterial Doppler done on 02/16/17 unremarkable for flow but showing B/ L DVT Right Mid Leg Hematoma which Ruptured and heparin was held initially large and deep purplish surgery closely following september need evacuation surgery ok to restart iv heparin transferring To [facility] for further care Anemia acute blood loss from above hb 7.5 02/15/17 transfused two units f/u h and h, hb 9.[address] scan 02/15/17 nausea on fluids pain control surgery on board now complains of RUQ abdominal pain- may repeat ct scan as patient has ventral hernias if pain gets worse lactic acid ok repeat ct abd/pelvis 02/16/17 -same could not place ng tube even after multiple attempts pain control, iv fluids, npo and if no improvement and if needs surgery- Surgery recommends transfer to [facility] PATIENT HAS HX OF PERITONITIS AND PERFORATED GASTRIC ULCER (WAS AT [facility] IN 2013) WITH ILEOSTOMY AND CHRONIC ABDOMINAL WALL WOUND. still symptomatic and vomited 700ml vomitus today Transferring to [facility] ACUTE KIDNEY INJURY on History CKD III. presented with Serum creatinine now 3, compared to baseline of 1.4 on 12/03/16. fluids as per nephrology cr 1.0today f/u labs Possible UTI on Rocephin#7 cx no growth so far. will stop abx HISTORY PUD On ranitidine. HYPOTHYROIDISM On levothyroxine. VTE PROPHYLAXIS IV heparin RESUSCITATION STATUS Full code. DISPOSITION Transferring To [facility] for further management of this complex patient Total time spent on discharge = 45MINUTES This includes examination of the patient, discharge planning, medication reconciliation, and communication with other providers. Discharge Instructions Please take this sheet to every appointment for the next month Discharge Instructions Date of Service Feb 17, 2017. Admission Reason for Admission: Lower Ext Dvt;Hypokalemia Discharge Discharge Diagnosis / Problem: b/l Lower EXT extensive DVT, ARF, SBO, Hematoma , anemia Discharge Goals Goal(s): Decrease discomfort, Improve function, Increase independence Activity Recommendations Activity Level: Assistance Required . Additional Information Patient informed of condition: Yes Advance Directives: Yes DNR: No Level of Care: Other (Transferring to [facility]) Communicable Disease: No Prognosis: Stable Johnston Catheter: Yes Instructions / Follow-Up Instructions / Follow-Up FOLLOWUP PER [facility] RECOMMENDATIONS Current Hospital Diet Patient's current hospital diet: AHA Diet (Heart Healthy) Discharge Diet Recommended Diet: N/A (NPO) Pending Studies Studies pending at discharge: no Physician Orders On Transfer Special Precautions: FALL AND ASPIRATION PRECAUTIONS IV Therapy: IV NS@100ML/HR Vital Signs: EVERY 8HRS Additional Orders: PLEASE CHECK MEDICATION RECONCILIATION FOR ACCURATE MEDICATION LIST Medical Emergencies . Who to Call and When: Medical Emergencies: If at any time you feel your situation is an emergency, please call 911 immediately. . Non-Emergent Contact Non-Emergency issues call your: Primary Care Provider . . "Provider Documentation" section prepared by Enrique Rodrigues. . Core Measure Problem Core Measures: None
[2017-02-17 16:35] VITALS: BP 138/74; PULSE 80; TEMP 36.5; O2SAT 95
[2017-02-17] MEDS ORDERED: HEPARIN IV BOLUS 4,500 UNIT in SYRINGE 0 ML IV ONE (16:45)
[2017-02-17 16:56] VITALS: O2SAT 95
[2017-02-17] MEDS: HEPARIN 25,000 UNIT/500ML D5W 500 ML IV PRN (17:54)
[2017-02-17 19:33] VITALS: BP 159/78; PULSE 90; TEMP 36.7; O2SAT 94
== END 2017-02-17 20:30 | disposition short-term general hospital (02) | DRG 300 ==
LOC: C.2T 22:46
PROVIDERS: ADMIT Hospitalist; ATTEND Internal Medicine
DX: I82.402 Acute embolism and thrombosis of unspecified deep veins of left lower extremity (principal); N17.9 Acute kidney failure, unspecified; Z68.41 Body mass index [BMI] 40.0-44.9, adult; N39.0 Urinary tract infection, site not specified; D62 Acute posthemorrhagic anemia; K56.600 Partial intestinal obstruction, unspecified as to cause; K43.9 Ventral hernia without obstruction or gangrene; M79.81 Nontraumatic hematoma of soft tissue; Z86.711 Personal history of pulmonary embolism; Z95.828 Presence of other vascular implants and grafts; N18.3 Chronic kidney disease, stage 3 (moderate); E78.5 Hyperlipidemia, unspecified; I12.9 Hypertensive chronic kidney disease with stage 1 through stage 4 chronic kidney disease, or unspecified chronic kidney disease; E03.9 Hypothyroidism, unspecified; Z93.3 Colostomy status; K27.7 Chronic peptic ulcer, site unspecified, without hemorrhage or perforation; M17.9 Osteoarthritis of knee, unspecified

== ENCOUNTER → 2017-07-10 | Day surgery (SDC) | payer OTHER ==
[2017-07-04 09:13] VITALS: Ht 152.4 cm; Wt 78.2 kg
[~2017-07-10] VITALS: Ht 152.4 cm; Wt 78.2 kg
[~2017-07-10] MED LIST: ACET1TAB84 PO; ATOR10TA82 PO; BUME2TAB3 PO; BUSP-8 PO; CALCIUM CARBONATE PO; CLR10 PO; CYM/60 PO; FENTANYL CITRATE INJ 50 MCG/1 ML 2 ML VIAL ONE; FLUT0.15 NAE; LEVO150T9 PO; LIDOCAINE HCL 2% 2 ML VIAL (20MG/ML) ONE; MAGN400T6 PO; MULT-513 PO; OMEPRAZOLE PO; OSEL75CA23 PO; OXYC-164 PO; POTA8CAP6 PO; PROP10TA7 PO; PROPOFOL IV EMULSION 10 MG/ML 20 ML VIAL IV ONE; QUET1TAB34 PO; RANI150T85 PO; RIVA1TAB4 PO; SODIUM CHLORIDE 0.9% 500ML 500 ML IV ONE; VITAMIN D2 PO
--- NOTE | 2017-07-10 09:17 | Endo History and Physical ---
History & Physical Date of Service: Jul 10, 2017. Chief Complaint: dysphagia Referring Physician: Dr. Bette Drummond,[facility] History of Present Illness patient with dysphagia. Past Surgical History Hx Cardiac Surgery: No Hx Internal Defibrillator: No Hx Pacemaker: No Hx Abdominal Surgery: Yes (HERNIA REPAIR, ILEOSTOMY r/t ruptured gastric ulcer , OPEN CALEB) Hx of Implantable Prosthesis: No Hx Post-Op Nausea and Vomiting: No Hx Cancer Surgery: No Hx Thoracic Surgery: No Hx Orthopedic: No Hx Urinary Tract Surgery: No Social History Smoking Status: Smoker Current Status UNK Hx Substance Use: No Hx Alcohol Use: No Allergies Coded Allergies: Heparin (Verified Allergy, Unknown, UNKNOWN, 07/04/17) Meperidine (Verified Allergy, Unknown, unknown, 07/04/17) Current Medications Reported Home Medications Medications Dose Route/Sig Max Daily Dose Days Date Category Klor-Con Ext Rel (Potassium Chloride) 8 Meq Tabcr 8 Meq PO DAILY 07/10/17 Reported Tamiflu (Oseltamivir Phosphate) 75 Mg Cap 75 Mg PO BID 07/10/17 Reported Mvi With Minerals (Multivitamins/Minerals) Tab 1 Tab PO DAILY 07/10/17 Reported Inderal (Propranolol HCl) 10 Mg Tab 10 Mg PO BID PRN 07/04/17 Reported [Omeprazole] 1 Tab PO DAILY 07/04/17 Reported Claritin (Loratadine) 10 Mg Tab 10 Mg PO DAILY 07/04/17 Reported Levothyroxine Sodium 150 Mcg Tab 1 Tab PO DAILY 07/04/17 Reported [Calcium Carbonate] 750 Mg PO BID 07/04/17 Reported Buspirone Hcl 10 Mg Tab 10 Mg PO TID 07/04/17 Reported Lipitor (Atorvastatin Calcium) 10 Mg Tab 10 Mg PO DAILY 07/04/17 Reported Tylenol Arthritis Ext Rel (Acetaminophen) 650 Mg Cplt 650 Mg PO Q8H PRN 07/04/17 Reported Zantac (Ranitidine HCl) 150 Mg Tab 150 Mg PO BID 07/04/17 Reported Xarelto (Rivaroxaban) 20 Mg Tab 20 Mg PO DAILY 07/04/17 Reported [Vitamin D2] 50,000 Unit PO DAILY 07/04/17 Reported Mag-Ox (Magnesium Oxide) 400 Mg Tab 400 Mg PO DAILY 07/04/17 Reported Flonase Allergy Relief (Fluticasone Propionate (Nasal)) 50 Mcg/Act Spr 1 [place] CLEMENCIA DAILY 07/04/17 Reported Cymbalta (Duloxetine HCl) 60 Mg Cap 2 Cap PO DAILY 07/04/17 Reported Bumex (Bumetanide) 2 Mg Tab 2 Tab PO DAILY 07/04/17 Reported Vital Signs Weight (Kilograms): 78.18 Height (Feet): 0 Height (Inches): 60 Date Time Temp Pulse Resp B/P (MAP) Pulse Ox O2 Delivery O2 Flow Rate FiO2 07/10/17 08:46 36.6 81 16 116/60 (78) 100 Room Air Physical Exam General Appearance: no apparent distress Respiratory/Chest: Auscultation: rhonchi Cardiovascular: Heart Auscultation: RRR Abdomen: Inspection & Palpation: soft Liver: non-tender (with multiple scars) Assessment and Plan stable for EGD
--- NOTE | 2017-07-10 09:55 | GI REPORT ---
Procedure Date: 07/10/2017 9:24 AM Procedure: Upper GI endoscopy Indications: Dysphagia Medicines: See the Anesthesia note for documentation of the administered medications Complications: No immediate complications. Estimated Blood Loss: Estimated blood loss: none. Procedure: Pre-Anesthesia Assessment: - Prior to the procedure, a History and Physical was performed, and patient medications, allergies and sensitivities were reviewed. The patient's tolerance of previous anesthesia was reviewed. - The risks and benefits of the procedure and the sedation options and risks were discussed with the patient. All questions were answered and informed consent was obtained. - Patient identification and proposed procedure were verified prior to the procedure by the physician and the nurse. The procedure was verified in the pre-procedure area. - Pre-procedure physical examination revealed no contraindications to sedation. - After reviewing the risks and benefits, the patient was deemed in satisfactory condition to undergo the procedure. After obtaining informed consent, the endoscope was passed under direct vision. Throughout the procedure, the patient's blood pressure, pulse, and oxygen saturations were monitored continuously. The scope was introduced through the mouth, and advanced to the second part of duodenum. The upper GI endoscopy was accomplished without difficulty. The patient tolerated the procedure well. Findings: The esophagus was normal. The stomach was normal. The examined duodenum was normal. Impression: - Normal esophagus. - No stricture seen. - Normal stomach. - Normal examined duodenum. - No specimens collected. - Symptoms are consistant with oropharyngeal dysphagia. Recommendation: - Discharge patient to home. Grady Chi M.D. Grady Chi MD 07/10/2017 9:55:11 AM This report has been signed electronically. Note Initiated On: 07/10/2017 9:24 AM I attest to the content of the Intraoperative Record and orders documented therein, exceptions below
--- NOTE | 2017-07-10 09:57 | Discharge Instructions ---
Endoscopy Patient Instructions Date / Procedure(s) Performed Jul 10, 2017. EGD Allergy Information Coded Allergies: Heparin (Verified Allergy, Unknown, UNKNOWN, 07/04/17) Meperidine (Verified Allergy, Unknown, unknown, 07/04/17) Discharge Date / Findings Jul 10, 2017. Normal esophagus Medication Instructions Stopped Medication(s): last dose Xarelto yesterday Provider Instructions Activity Restrictions - No exercising or heavy lifting for 24 hours. - Do not drink alcohol the day of the procedure. - Do not drive a car or operate machinery until the day after the procedure. - Do not make any important decisions or sign important papers in 24 hours after the procedure. Following Day: - Return to full activity which may include returning to work/school. Diet Start your diet with liquids and light foods (jello, soup, juice, toast). Then eat your usual diet if not nauseated. Treatment For Common After Affects For mild abdominal pain, bloating, or excessive gas: - Rest - Eat lightly - Lie on right side Follow-Up Information Follow-up with Dr. Bette Drummond,[facility] as scheduled Anesthesia Information What You Should Know You have had a procedure that required some medicine to reduce anxiety and discomfort. This treatment is called moderate sedation. After receiving the treatment, you may be sleepy, but you will be able to breathe on your own. The effects of the treatment may last for several hours. Follow these instructions along with Activity/Diet recommendations noted above: * Do NOT do anything where dizziness or clumsiness would be dangerous. * Rest quietly at home today, then you can be up and about tomorrow. * Have a responsible person stay with you the rest of today. * You may have had an I.V. today. If so, you may take the dressing off later today. Recommendations Call your doctor if: * Trouble breathing * Continuous vomiting for more than 24 hours * Temperature above 101 degrees * Severe abdominal pain or bloating * Pain not relieved by pain medicine ordered * There is increased drainage or redness from any incision * A large amount of rectal bleeding greater than 2-3 tablespoons. (If you had a polyp/s removed or have hemorrhoids, a small amount of blood - from the rectum is to be expected.) * You have any unanswered questions or concerns. IN THE EVENT OF A SERIOUS EMERGENCY, GO TO THE NEAREST EMERGENCY ROOM Your discharge instructions were prepared by provider Grady Chi. Patient Instructions Signature Page Teressa Oropeza Patient (or Guardian) Signature/Date: I have read and understand the instructions given to me by my caregivers. Caregiver/RN/Doctor Signature/Date: The above-named patient and/or guardian has received patient instructions on this date. + Original Patient Signature Page (only) stays with chart. Please make copy for patient.
[2017-07-10 10:20] VITALS: BP 116/58; PULSE 82; O2SAT 95
--- NOTE | 2017-07-10 10:25 | Anesthesiology Progress Note ---
Anesthesia Post Op Note Date & Time Jul 10, 2017 at 10:25 Vital Signs Pain Intensity: 0 Vital Signs Past 12 Hours Date Time Temp Pulse Resp B/P (MAP) Pulse Ox O2 Delivery O2 Flow Rate FiO2 07/10/17 10:20 82 16 116/58 (77) 95 Room Air 07/10/17 10:05 76 16 112/63 (79) 95 Room Air 07/10/17 09:50 78 16 91/41 (58) 100 Room Air 07/10/17 08:46 36.6 81 16 116/60 (78) 100 Room Air Notes Mental Status: alert / awake / arousable, participated in evaluation Pt Amnestic to Procedure: Yes Nausea / Vomiting: adequately controlled Pain: adequately controlled Airway Patency, RR, SpO2: stable & adequate BP & HR: stable & adequate Hydration State: stable & adequate Anesthetic Complications: no major complications apparent
== END | disposition home or self-care (01) ==
LOC: C.GI 08:22
PROVIDERS: ATTEND Internal Medicine Gastroenterology
DX: R13.10 Dysphagia, unspecified (principal); I12.9 Hypertensive chronic kidney disease with stage 1 through stage 4 chronic kidney disease, or unspecified chronic kidney disease; N18.9 Chronic kidney disease, unspecified; J45.909 Unspecified asthma, uncomplicated; Z86.711 Personal history of pulmonary embolism; Z86.73 Personal history of transient ischemic attack (TIA), and cerebral infarction without residual deficits; Z79.01 Long term (current) use of anticoagulants; Z90.49 Acquired absence of other specified parts of digestive tract

== ENCOUNTER 2017-07-28 09:24 | Inpatient (IN) | payer OTHER ==
[~2017-07-28] VITALS: Ht 147.3 cm; Wt 75.7 kg
[~2017-07-28 09:24] MED LIST changes: -CALC1CHW90 PO; -CEFU250T15 PO; -DOXE1TAB2 PO; -ERGO500037 PO; -LEVO200T PO; -NUTR-238 PO
[2017-07-28] MEDS ORDERED: SODIUM CHLORIDE 0.9% 1000ML 1,000 ML IV ONE (09:46)
--- NOTE | 2017-07-28 10:01 | EMERGENCY ROOM VISIT NOTE ---
History Report prepared by Josh: Jose Roberto Cornejo Under the Supervision of: Dr. Jose Cifuentes D.O. First contact with patient: 09:35 Chief Complaint: CONFUSION Stated Complaint: CONFUSION, SENT HERE FROM GI DEPT History of Present Illness The patient is a 67 year old female who presents to the Emergency Room with complaints of worsening confusion since this morning. Per nursing staff, the patient was at [facility] and expected to have a colonoscopy. Per nursing staff, the endoscopy nurses brought her to the ED due to confusion and they would not do the colonoscopy. She was found to be hypotensive. She does state that she has been having diarrhea for three days. She denies any headache. She is currently taking Xarelto. HPI limited secondary to altered mental status. Source of History: patient, nursing staff History Limited By: AMS Onset: since this morning Position: other (global) Quality: other (confusion) Timing: worsening Associated Symptoms: + diarrhea, No headache Review of Systems ROS limited secondary to altered mental status. Past Medical & Surgical Medical Problems: (1) BMI 40.0-44.9, adult (2) C. difficile diarrhea (3) Chronic kidney disease (CKD), stage III (moderate) (4) Degenerative arthritis of knee (5) DVT of lower extremity (deep venous thrombosis) (6) Dyslipidemia (7) History of peritonitis (8) HIT (heparin-induced thrombocytopenia) (9) Hypertension (10) Hypothyroidism (11) Pulmonary embolism (12) SBO (small bowel obstruction) Surgical Problems: (1) Ileostomy status (2) Status post exploratory laparotomy (3) Status post insertion of inferior vena caval filter Family History Cancer SON Heart disease FATHER Stroke SON Thyroid disease MOTHER Social History Smoking Status: Never Smoker Smokeless Tobacco Use: No Alcohol Use: none Drug Use: none Housing Status: long-term Occupation Status: unemployed Current/Historical Medications Scheduled Atorvastatin (Lipitor), 10 MG PO QPM Bumetanide (Bumex), 2 MG PO QAM Buspirone Hcl (Buspirone Hcl), 10 MG PO TID Calcium Carbonate (Antacid) (Calcium Carbonate Extra S), 750 MG PO BID Cefuroxime Axetil (Ceftin), 250 MG PO TID Doxepin Hcl (Sleep) (Silenor), 3 MG PO HS Duloxetine HCl (Cymbalta), 60 MG PO QAM Ergocalciferol (Vitamin D 41049 Unit), 50,000 UNIT PO WK Fluticasone Propionate (Nasal) (Flonase Allergy Relief), 1 SPRAY CLEMENCIA DAILY Levothyroxine Sodium (Synthroid), 200 MCG PO DAILY Loratadine (Claritin), 10 MG PO DAILY Multivitamins/Minerals (Mvi With Minerals), 1 TAB PO QAM Nutritional Supplements (Nutritional Drink), 1 BTL PO HS Pantoprazole (Protonix), 40 MG PO QAM Potassium Chloride (Micro-K Ext Rel), 10 MEQ PO 5X DAY Propranolol (Inderal), 10 MG PO BID Ranitidine (Zantac), 150 MG PO BID Rivaroxaban (Xarelto), 20 MG PO DAILY Scheduled PRN Acetaminophen (Tylenol Arthritis Ext Rel), 650 MG PO Q8H PRN for PRN Loratadine (Claritin), 10 MG PO DAILY PRN for PRN Ondansetron Hcl (Zofran), 4 MG PO Q6H PRN for Nausea Allergies Coded Allergies: Heparin (Verified Allergy, Unknown, UNKNOWN, 07/28/17) Meperidine (Verified Allergy, Unknown, unknown, 07/28/17) Physical Exam Vital Signs Date Time Temp Pulse Resp B/P (MAP) Pulse Ox O2 Delivery O2 Flow Rate FiO2 07/28/17 11:32 76 100/49 07/28/17 10:59 82 18 79/63 Room Air 07/28/17 10:35 85 107/52 07/28/17 10:18 79/57 07/28/17 10:09 99 Room Air 07/28/17 09:57 107/57 07/28/17 09:44 86 07/28/17 09:39 72/57 07/28/17 09:27 83 18 56/43 99 Room Air 59/42 Physical Exam GENERAL: Patient is awake, alert, and in no acute distress. Patient is listless , responds to verbal commands, but slowly. EYES: The conjunctivae are clear. The pupils are round and reactive. EARS, NOSE, MOUTH AND THROAT: The nose is without any evidence of any deformity. Mucous membranes are dry, tongue is midline NECK: The neck is nontender and supple. RESPIRATORY: Swallow respirations were noted but lungs were clear. CARDIOVASCULAR: Regular rate and rhythm noted there no murmurs rubs or gallops normal S1 normal S2 GASTROINTESTINAL: The abdomen is mildly distended, but soft, no guarding or rigidity appreciated. MUSCULOSKELETAL/EXTREMITIES: There is no evidence of gross deformity full range of motion is noted in the hips and shoulders SKIN: Pedal edema bilaterally with chronic venous stasis changes noted. Severe erythema and excoriation noted on perineum. NEUROLOGIC: Patient is oriented to person, but not place, time, or situation. Strength symmetric, but diminished. Medical Decision & Procedures ER Provider Diagnostic Interpretation: Radiology results as stated below per my review and radiologist interpretation: CT OF THE HEAD WITHOUT CONTRAST CLINICAL HISTORY: Altered mental status. COMPARISON STUDY: Head CT February 14, 2017. CT DOSE: 998.18 mGy.cm TECHNIQUE: Helical axial images of the head were obtained without IV contrast. Automated exposure control was utilized for the study. A dose lowering technique was utilized adhering to the principles of ALARA. FINDINGS: No acute intracranial hemorrhage, midline shift or mass effect is present. Ventricular system is stable. Basilar cisterns are patent. There are no extra-axial collections. White matter hypodensity suggests small vessel disease. There are no findings to suggest acute dural sinus thrombosis or acute territorial infarct. There are no significant calvarial abnormalities. Exam is mildly compromised by motion artifact. IMPRESSION: No acute intracranial findings. Electronically signed by: Aries Smith M.D. 07/28/2017 10:33 AM Dictated Date/Time: 07/28/2017 10:30 AM KUB CLINICAL HISTORY: Abdominal distention. COMPARISON STUDY: KUB February 17, 2017. FINDINGS: An IVC filter is in place. There is severe osteoarthritis of both hips. The bowel gas pattern is normal. IMPRESSION: No evidence for a bowel obstruction. Electronically signed by: Aries Smith M.D. 07/28/2017 11:01 AM Dictated Date/Time: 07/28/2017 11:00 AM CHEST ONE VIEW PORTABLE CLINICAL HISTORY: Sepsis COMPARISON STUDY: Chest radiograph February 15, 2017 per FINDINGS: Lung volumes are normal. No pneumothorax or pleural effusion is noted. Mild mediastinal widening is unchanged and likely reflects mediastinal fat. There is no evidence for pulmonary edema. There is no consolidation to suggest pneumonia. There is mild cardiomegaly. IMPRESSION: No acute cardiopulmonary findings. Electronically signed by: Aries Smith M.D. 07/28/2017 11:02 AM Dictated Date/Time: 07/28/2017 11:01 AM Laboratory Results 07/28/17 10:10 Red Blood Count 2.80, Mean Corpuscular Volume 95.0, Mean Corpuscular Hemoglobin 31.8, Mean Corpuscular Hemoglobin Concent 33.5, Mean Platelet Volume 10.0, Neutrophils (%) (Auto) 43.2, Lymphocytes (%) (Auto) 21.1, Monocytes (%) (Auto) 19.7, Eosinophils (%) (Auto) 14.6, Basophils (%) (Auto) 0.5, Neutrophils # (Auto ) 4.44, Lymphocytes # (Auto) 2.16, Monocytes # (Auto) 2.02, Eosinophils # (Auto ) 1.50, Basophils # (Auto) 0.05 07/28/17 10:10 Test 07/28/17 09:47 07/28/17 10:00 07/28/17 10:10 Bedside Glucose 73 mg/dl (70-90) Urine Color DK YELLOW Urine Appearance CLEAR (CLEAR) Urine pH 5.0 (4.5-7.5) Urine Specific [place] 1.019 (1.000-1.030) Urine Protein NEG (NEG) Urine Glucose (UA) NEG (NEG) Urine Ketones TRACE (NEG) Urine Occult Blood NEG (NEG) Urine Nitrite NEG (NEG) Urine Bilirubin NEG (NEG) Urine Urobilinogen NEG (NEG) Urine Leukocyte Esterase SMALL (NEG) Urine WBC (Auto) 1-5 /hpf (0-5) Urine RBC (Auto) 0-4 /hpf (0-4) Urine Hyaline Casts (Auto) 5-10 /lpf (0-5) Urine Epithelial Cells (Auto) 20-30 /lpf (0-5) Urine Bacteria (Auto) NEG (NEG) White Blood Count 10.26 K/uL (4.8-10.8) Red Blood Count 2.80 M/uL (4.2-5.4) Hemoglobin 8.9 g/dL (12.0-16.0) Hematocrit 26.6 % (37-47) Mean Corpuscular Volume 95.0 fL (80-100) Mean Corpuscular Hemoglobin 31.8 pg (25-34) Mean Corpuscular Hemoglobin Concent 33.5 g/dl (32-36) Platelet Count 163 K/uL (130-400) Mean Platelet Volume 10.0 fL (7.4-10.4) Neutrophils (%) (Auto) 43.2 % Lymphocytes (%) (Auto) 21.1 % Monocytes (%) (Auto) 19.7 % Eosinophils (%) (Auto) 14.6 % Basophils (%) (Auto) 0.5 % Neutrophils # (Auto) 4.44 K/uL (1.4-6.5) Lymphocytes # (Auto) 2.16 K/uL (1.2-3.4) Monocytes # (Auto) 2.02 K/uL (0.11-0.59) Eosinophils # (Auto) 1.50 K/uL (0-0.5) Basophils # (Auto) 0.05 K/uL (0-0.2) RDW Standard Deviation 66.4 fL (36.4-46.3) RDW Coefficient of Variation 19.6 % (11.5-14.5) Immature Granulocyte % (Auto) 0.9 % Immature Granulocyte # (Auto) 0.09 K/uL (0.00-0.02) Nucleated RBC Absolute Count (auto) 0.04 K/uL (0-0) Nucleated Red Blood Cells % 0.4 % Anisocytosis PRESENT Pappenheimer Bodies 2+ Target Cells 1+ Erythrocyte Sedimentation Rate 23 mm/hr (0-21) Prothrombin Time 12.7 SECONDS (9.0-12.0) Prothromb Time International Ratio 1.2 (0.9-1.1) Activated Partial Thromboplast Time 28.5 SECONDS (21.0-31.0) Partial Thromboplastin Ratio 1.1 Venous Blood pH 7.27 (7.36-7.41) Venous Blood Partial Pressure CO2 36 mmHg (38.0-50.0) Venous Blood Partial Pressure O2 28 mmHg Venous Blood HCO3 16 mmol/L Venous Blood Oxygen Saturation < 60.0 % Venous Blood Base Excess -9.9 mEq/L Anion Gap 11.0 mmol/L (3-11) Est Creatinine Clear Calc Drug Dose 10.4 ml/min Estimated GFR () 12.1 Estimated GFR (Non- 10.4 BUN/Creatinine Ratio 7.3 (10-20) Calcium Level 8.5 mg/dl (8.5-10.1) Phosphorus Level 3.9 mg/dl (2.5-4.9) Magnesium Level 1.2 mg/dl (1.8-2.4) Total Bilirubin 0.6 mg/dl (0.2-1) Aspartate Amino Transf (AST/SGOT) 24 U/L (15-37) Alanine Aminotransferase (ALT/SGPT) 14 U/L (12-78) Alkaline Phosphatase 217 U/L (45-117) Total Creatine Kinase 45 U/L (26-192) Creatine Kinase MB 1.9 ng/ml (0.5-3.6) Creatine Kinase MB Ratio 4.2 (0-3.0) Troponin I < 0.015 ng/ml (0-0.045) C-Reactive Protein 3.47 mg/dl (0-0.29) Pro-B-Type Natriuretic Peptide 7301 pg/ml (0-900) Total Protein 5.5 gm/dl (6.4-8.2) Albumin 1.5 gm/dl (3.4-5.0) Globulin 4.0 gm/dl (2.5-4.0) Albumin/Globulin Ratio 0.4 (0.9-2) Lipase 44 U/L (73-393) Procalcitonin 0.29 ng/ml (0-0.5) Laboratory results per my review. Medications Administered Medications (Trade) Dose Ordered Sig/Rashid Route Start Time Stop Time Status Last Admin Dose Admin Sodium Chloride 1,000 ml @ 999 mls/hr Q1H1M ONCE IV 07/28/17 09:46 07/28/17 10:46 DC 07/28/17 10:01 999 MLS/HR Sodium Chloride 1,000 ml @ 999 mls/hr Q1H1M STAT IV 07/28/17 10:46 07/28/17 11:46 DC 07/28/17 11:01 999 MLS/HR Magnesium Sulfate (Magnesium Sulfate) 2 gm NOW STAT IV 07/28/17 10:52 07/28/17 10:53 DC 07/28/17 11:00 2 GM ECG Per My Interpretation Indication: other (confusion) Rate (beats per minute): 74 Rhythm: normal sinus Findings: ST depression (diffuse), T-wave inversion, no ectopy (No PVCs) Change: no significant change (when compared to 02/10/2017) ED Course 0943: The patient was evaluated in room A3. A complete history and physical examination were performed. 0946: Ordered NSS 1,000 ml @ 999 mls/hr IV 1046: Ordered NSS 1,000 ml @ 999 mls/hr IV 1050: I spoke with Leonardo Her. We discussed the patient's case. [facility] 1052: Ordered Magnesium Sulfate 2 gm IV Medical Decision Prior records/ancillary studies reviewed and summarized above. Nursing notes reviewed. The patient's history was concerning for altered mental status. Differential diagnosis: Etiologies such as metabolic, infection, hypoglycemia, electrolyte abnormalities , cardiac sources, intracerebral event, toxicologic, neurologic, as well as others were entertained. The patient is a 67-year-old female who presented to the emergency department for altered mental status. The patient was recently prepped for a colonoscopy. She was at the endoscopy lab when she was noted to be confused. She was sent to the emergency department for an evaluation. She was hypotensive. A septic workup was undertaken. The patient was treated with IV fluids in the emergency department. She was also treated with IV magnesium replacement. She was reevaluated multiple times. It would appear that the patient has had loose bowels recently likely secondary to the colonoscopy prep. She is very dehydrated and I feel that her acute renal failure secondary to a prerenal state because of dehydration. She also has severe excoriation on her perineum. I discussed the patient's laboratory and radiographic studies with the on- call [facility] hospitalist group. They have agreed to evaluate the patient in the emergency department for further management and disposition. Medication Reconcilliation Current Medication List: was personally reviewed by me Blood Pressure Screening Patient's blood pressure: Low blood pressure Blood pressure disposition: Elevated BP felt to be situational Consults Time Called: 1046 Consulting Physician: Leonardo Her Returned Call: 1050 I spoke with Leonardo Her. We discussed the patient's case. The patient will be evaluated by the [facility] Hospitalist Group for further management. Impression Primary Impression: Altered mental status Additional Impressions: Dehydration Renal failure Metabolic acidosis Anemia Hypomagnesemia Scribe Attestation The scribe's documentation has been prepared under my direction and personally reviewed by me in its entirety. I confirm that the note above accurately reflects all work, treatment, procedures, and medical decision making performed by me. Departure Information Dispostion Being Evaluated By Hospitalist Referrals Bette Drummond M.D. (PCP) Patient Instructions My [facility] Problem Qualifiers Primary Impression: Altered mental status Altered mental status type: unspecified Qualified Codes: R41.82 - Altered mental status, unspecified Additional Impressions: Renal failure Renal failure chronicity: acute Acute renal failure type: unspecified Qualified Codes: N17.9 - Acute kidney failure, unspecified Anemia Anemia type: unspecified type Qualified Codes: D64.9 - Anemia, unspecified
[2017-07-28 10:23] LABS: BASO % 0.5 %; BASO ABS # 0.05 K/uL (0-0.2); EOS % 14.6 %; HEMATOCRIT 26.6 % (37-47); HEMOGLOBIN 8.9 g/dL (12.0-16.0); IG# 0.09 K/uL (0.00-0.02); LYMPH % 21.1 %; LYMPH ABS # 2.16 K/uL (1.2-3.4); MEAN CORPUSCULAR HEMOGLOBIN 31.8 pg (25-34); MEAN CORPUSCULAR HGB CONC 33.5 g/dl (32-36); MONO % 19.7 %; MONO ABS # 2.02 K/uL (0.11-0.59); NEUT % 43.2 %; NEUT ABS # 4.44 K/uL (1.4-6.5); NUCLEATED RED BLOOD CELL ABS 0.04 K/uL (0-0); PLATELET COUNT 163 K/uL (130-400); RED CELL DISTRIBUTION WIDTH CV 19.6 % (11.5-14.5); RED CELL DISTRIBUTION WIDTH SD 66.4 fL (36.4-46.3); WHITE BLOOD COUNT 10.26 K/uL (4.8-10.8)
[2017-07-28 10:31] LABS: INR 1.2 (0.9-1.1); PTT PATIENT 28.5 SECONDS (21.0-31.0)
--- NOTE | 2017-07-28 10:35 | DIAGNOSTIC IMAGING REPORT ---
CT OF THE HEAD WITHOUT CONTRAST CLINICAL HISTORY: Altered mental status. COMPARISON STUDY: Head CT February 14, 2017. CT DOSE: 998.18 mGy.cm TECHNIQUE: Helical axial images of the head were obtained without IV contrast. Automated exposure control was utilized for the study. A dose lowering technique was utilized adhering to the principles of ALARA. FINDINGS: No acute intracranial hemorrhage, midline shift or mass effect is present. Ventricular system is stable. Basilar cisterns are patent. There are no extra-axial collections. White matter hypodensity suggests small vessel disease. There are no findings to suggest acute dural sinus thrombosis or acute territorial infarct. There are no significant calvarial abnormalities. Exam is mildly compromised by motion artifact. IMPRESSION: No acute intracranial findings. Electronically signed by: Aries Smith M.D. 07/28/2017 10:33 AM Dictated Date/Time: 07/28/2017 10:30 AM
[2017-07-28] MEDS ORDERED: CLR10 PO (10:44)
[2017-07-28] MEDS ORDERED: DOXE1TAB2 PO (10:44)
[2017-07-28] MEDS ORDERED: ERGO500037 PO (10:44)
[2017-07-28] MEDS ORDERED: LEVO200T PO (10:44)
[2017-07-28] MEDS ORDERED: CEFU250T15 PO (10:44)
[2017-07-28] MEDS ORDERED: CALC1CHW90 PO (10:44)
[2017-07-28] MEDS ORDERED: NUTR-238 PO (10:44)
[2017-07-28 10:45] LABS: ALBUMIN 1.5 gm/dl (3.4-5.0); ALT/SGPT 14 U/L (12-78); AST/SGOT 24 U/L (15-37); BLOOD UREA NITROGEN 30 mg/dl (7-18); CALCIUM 8.5 mg/dl (8.5-10.1); CARBON DIOXIDE 15 mmol/L (21-32); CREATININE 4.11 mg/dl (0.60-1.20); GLUCOSE 107 mg/dl (70-99); LIPASE 44 U/L (73-393); POTASSIUM 5.1 mmol/L (3.5-5.1); SODIUM 141 mmol/L (136-145)
[2017-07-28] MEDS ORDERED: SODIUM CHLORIDE 0.9% 1000ML 1,000 ML IV STA (10:46)
[2017-07-28 10:48] LABS: ALKALINE PHOSPHATASE 217 U/L (45-117); CKMB 1.9 ng/ml (0.5-3.6); PHOSPHORUS 3.9 mg/dl (2.5-4.9); TOTAL PROTEIN 5.5 gm/dl (6.4-8.2)
[2017-07-28] MEDS ORDERED: MAGNESIUM SULFATE 1GM / D5W 1 GM BAG IV STA (10:52)
--- NOTE | 2017-07-28 11:03 | DIAGNOSTIC IMAGING REPORT ---
KUB CLINICAL HISTORY: Abdominal distention. COMPARISON STUDY: KUB February 17, 2017. FINDINGS: An IVC filter is in place. There is severe osteoarthritis of both hips. The bowel gas pattern is normal. IMPRESSION: No evidence for a bowel obstruction. Electronically signed by: Aries Smith M.D. 07/28/2017 11:01 AM Dictated Date/Time: 07/28/2017 11:00 AM
--- NOTE | 2017-07-28 11:04 | DIAGNOSTIC IMAGING REPORT ---
CHEST ONE VIEW PORTABLE CLINICAL HISTORY: Sepsis COMPARISON STUDY: Chest radiograph February 15, 2017 per FINDINGS: Lung volumes are normal. No pneumothorax or pleural effusion is noted. Mild mediastinal widening is unchanged and likely reflects mediastinal fat. There is no evidence for pulmonary edema. There is no consolidation to suggest pneumonia. There is mild cardiomegaly. IMPRESSION: No acute cardiopulmonary findings. Electronically signed by: Aries Smith M.D. 07/28/2017 11:02 AM Dictated Date/Time: 07/28/2017 11:01 AM
[2017-07-28] MEDS ORDERED: ONDANSETRON INJ 2 MG/ML 2 ML VIAL IV PRN (11:45)
[2017-07-28 12:02] VITALS: O2SAT 99; Ht 147.3 cm; Wt 75.7 kg
[2017-07-28 13:39] VITALS: BP 99/63; PULSE 81; TEMP 36.4; O2SAT 100
[2017-07-28] MEDS ORDERED: INFLUENZA VACCINE HIGH DOSE 65+ 0.5 ML SYR IM. ONE (14:00)
[2017-07-28] MEDS ORDERED: INFLUENZA ADMINISTRATION CHARGE ONE (14:00)
[2017-07-28] MEDS ORDERED: PNEUMOCOCCAL POLYSACCHARIDES 25 MCG/0.5 ML VIAL/SYR IM. ONE (14:00)
[2017-07-28] MEDS ORDERED: PNEUMOCOCCAL ADMINISTRATION CHARGE ONE (14:00)
--- NOTE | 2017-07-28 14:16 | History and Physical ---
History & Physical Date & Time of Service: Jul 28, 2017 at 13:29 Chief Complaint: Confusion Primary Care Physician: Bette Drummond M.D. History of Present Illness 67-year-old female who was sent to the ER from the endoscopy department for evaluation of altered mental status. Patient presented to the GI lab today for outpatient planned colonoscopy for evaluation of diarrhea. Upon arrival to the GI lab patient was markedly confused and they were unable to obtain consent for the procedure. Patient was then sent to the ER for further further evaluation. History is very limited from the patient due to her current underlying mental state. I did speak with the staff at [facility]. History is limited from them as well. They report that at baseline patient does have periods of confusion and agitation. I also spoke with patient's [id number] who confirmed this as well and reports that she has been confused for the past several months. Per review of outpatient records patient has been having diarrhea, loss of appetite, and weight loss. [facility] however when the staff was questioned about the location of the cellulitis they were unsure. Patient currently offers no complaints and reports that she is just uncomfortable in the bed. Upon arrival to the ER patient was found to be hypotensive and on laboratory results found to have creatinine of 4.1. Blood pressure improved with 2 L of IV fluid. Past Medical/Surgical History Medical Problems: (1) BMI 40.0-44.9, adult Status: Chronic (2) C. difficile diarrhea Status: Resolved (3) Chronic kidney disease (CKD), stage III (moderate) Status: Chronic (4) Degenerative arthritis of knee Status: Chronic (5) DVT of lower extremity (deep venous thrombosis) Status: Chronic (6) Dyslipidemia Status: Chronic (7) History of peritonitis Permanent Comment: 2013 [facility] [place] perforated gastric ulcer, abscess Status: Chronic (8) HIT (heparin-induced thrombocytopenia) Status: Chronic (9) Hypertension Status: Chronic (10) Hypothyroidism Status: Chronic (11) Pulmonary embolism Permanent Comment: 2013 during ICU illness Status: Chronic (12) SBO (small bowel obstruction) Permanent Comment: due to incarcerated parastomal hernia, gastrocutaneous fistula s/p ex lap w lysis of adhesion, repair of parastomal hernia, reversal of loop ileostomy w small bowel resection, take down of gastrocutaneous fistula and rectrorectus hernia repair w mesh placement in 02/2017 Status: Chronic Surgical Problems: (1) Ileostomy status Permanent Comment: s/p reversal Status: Chronic (2) Status post exploratory laparotomy Permanent Comment: [facility] [place] 2013 perforated gastric ulcer Status: Chronic (3) Status post insertion of inferior vena caval filter Permanent Comment: 2013 Status: Chronic Family History Heart disease FATHER (fatal [place] at age 60) Social History Smoking Status: Never Smoker Alcohol Use: none Allergies Coded Allergies: Heparin (Verified Allergy, Unknown, UNKNOWN, 07/28/17) Meperidine (Verified Allergy, Unknown, unknown, 07/28/17) Home Medications Scheduled Atorvastatin (Lipitor), 10 MG PO QPM Bumetanide (Bumex), 2 MG PO QAM Buspirone Hcl (Buspirone Hcl), 10 MG PO TID Calcium Carbonate (Antacid) (Calcium Carbonate Extra S), 750 MG PO BID Cefuroxime Axetil (Ceftin), 250 MG PO TID Doxepin Hcl (Sleep) (Silenor), 3 MG PO HS Duloxetine HCl (Cymbalta), 60 MG PO QAM Ergocalciferol (Vitamin D 85829 Unit), 50,000 UNIT PO WK Fluticasone Propionate (Nasal) (Flonase Allergy Relief), 1 SPRAY CLEMENCIA DAILY Levothyroxine Sodium (Synthroid), 200 MCG PO DAILY Loratadine (Claritin), 10 MG PO DAILY Multivitamins/Minerals (Mvi With Minerals), 1 TAB PO QAM Nutritional Supplements (Nutritional Drink), 1 BTL PO HS Pantoprazole (Protonix), 40 MG PO QAM Potassium Chloride (Micro-K Ext Rel), 10 MEQ PO 5X DAY Propranolol (Inderal), 10 MG PO BID Ranitidine (Zantac), 150 MG PO BID Rivaroxaban (Xarelto), 20 MG PO DAILY Scheduled PRN Acetaminophen (Tylenol Arthritis Ext Rel), 650 MG PO Q8H PRN for PRN Loratadine (Claritin), 10 MG PO DAILY PRN for PRN Ondansetron Hcl (Zofran), 4 MG PO Q6H PRN for Nausea Review of Systems Review of systems unobtainable from the patient due to her current underlying mental state Physical Exam Vital Signs Date Time Temp Pulse Resp B/P (MAP) Pulse Ox O2 Delivery O2 Flow Rate FiO2 07/28/17 13:04 89 20 106/66 97 Room Air 07/28/17 12:02 99 Room Air 07/28/17 11:32 76 100/49 07/28/17 10:59 82 18 79/63 Room Air 07/28/17 10:35 85 107/52 07/28/17 10:18 79/57 07/28/17 10:09 99 Room Air 07/28/17 09:57 107/57 07/28/17 09:44 86 07/28/17 09:39 72/57 07/28/17 09:27 83 18 56/43 99 Room Air 59/42 General Appearance: WD/WN, no apparent distress Head: normocephalic, atraumatic Eyes: normal inspection, EOMI, sclerae normal ENT: hearing grossly normal, + pertinent finding (mucous membranes moist) Neck: supple, no JVD, trachea midline Respiratory/Chest: lungs clear, normal breath sounds, no respiratory distress Cardiovascular: regular rate, rhythm, no edema, normal peripheral pulses Abdomen/GI: normal bowel sounds, non tender, soft, no organomegaly Extremities/Musculoskelatal: normal inspection, no calf tenderness, normal capillary refill Neurologic/Psych: no motor/sensory deficits, alert, + disoriented (to time and siutation, very poor insight) Skin: + pertinent finding (amauri area, abdominal and breast folds excoriated) Diagnostics Laboratory Results Results Past 24 Hours Test 07/28/17 09:47 07/28/17 10:00 07/28/17 10:10 Range/Units Bedside Glucose 73 70-90 mg/dl Urine Color DK YELLOW Urine Appearance CLEAR CLEAR Urine pH 5.0 4.5-7.5 Urine Specific [place] 1.019 1.000-1.030 Urine Protein NEG NEG Urine Glucose (UA) NEG NEG Urine Ketones TRACE NEG Urine Occult Blood NEG NEG Urine Nitrite NEG NEG Urine Bilirubin NEG NEG Urine Urobilinogen NEG NEG Urine Leukocyte Esterase SMALL NEG Urine WBC (Auto) 1-5 0-5 /hpf Urine RBC (Auto) 0-4 0-4 /hpf Urine Hyaline Casts (Auto) 5-10 0-5 /lpf Urine Epithelial Cells (Auto) 20-30 0-5 /lpf Urine Bacteria (Auto) NEG NEG White Blood Count 10.26 4.8-10.8 K/uL Red Blood Count 2.80 4.2-5.4 M/uL Hemoglobin 8.9 12.0-16.0 g/dL Hematocrit 26.6 37-47 % Mean Corpuscular Volume 95.0 80-100 fL Mean Corpuscular Hemoglobin 31.8 25-34 pg Mean Corpuscular Hemoglobin Concent 33.5 32-36 g/dl Platelet Count 163 130-400 K/uL Mean Platelet Volume 10.0 7.4-10.4 fL Neutrophils (%) (Auto) 43.2 % Lymphocytes (%) (Auto) 21.1 % Monocytes (%) (Auto) 19.7 % Eosinophils (%) (Auto) 14.6 % Basophils (%) (Auto) 0.5 % Neutrophils # (Auto) 4.44 1.4-6.5 K/uL Lymphocytes # (Auto) 2.16 1.2-3.4 K/uL Monocytes # (Auto) 2.02 0.11-0.59 K/uL Eosinophils # (Auto) 1.50 0-0.5 K/uL Basophils # (Auto) 0.05 0-0.2 K/uL RDW Standard Deviation 66.4 36.4-46.3 fL RDW Coefficient of Variation 19.6 11.5-14.5 % Immature Granulocyte % (Auto) 0.9 % Immature Granulocyte # (Auto) 0.09 0.00-0.02 K/uL Nucleated RBC Absolute Count (auto) 0.04 0-0 K/uL Nucleated Red Blood Cells % 0.4 % Anisocytosis PRESENT Pappenheimer Bodies 2+ Target Cells 1+ Erythrocyte Sedimentation Rate 23 0-21 mm/hr Prothrombin Time 12.7 9.0-12.0 SECONDS Prothromb Time International Ratio 1.2 0.9-1.1 Activated Partial Thromboplast Time 28.5 21.0-31.0 SECONDS Partial Thromboplastin Ratio 1.1 Venous Blood pH 7.27 7.36-7.41 Venous Blood Partial Pressure CO2 36 38.0-50.0 mmHg Venous Blood Partial Pressure O2 28 mmHg Venous Blood HCO3 16 mmol/L Venous Blood Oxygen Saturation < 60.0 % Venous Blood Base Excess -9.9 mEq/L Sodium Level 141 136-145 mmol/L Potassium Level 5.1 3.5-5.1 mmol/L Chloride Level 115 98-107 mmol/L Carbon Dioxide Level 15 21-32 mmol/L Anion Gap 11.0 3-11 mmol/L Blood Urea Nitrogen 30 7-18 mg/dl Creatinine 4.11 0.60-1.20 mg/dl Est Creatinine Clear Calc Drug Dose 10.4 ml/min Estimated GFR () 12.1 Estimated GFR (Non- 10.4 BUN/Creatinine Ratio 7.3 10-20 Random Glucose 107 70-99 mg/dl Calcium Level 8.5 8.5-10.1 mg/dl Phosphorus Level 3.9 2.5-4.9 mg/dl Magnesium Level 1.2 1.8-2.4 mg/dl Total Bilirubin 0.6 0.2-1 mg/dl Aspartate Amino Transf (AST/SGOT) 24 15-37 U/L Alanine Aminotransferase (ALT/SGPT) 14 12-78 U/L Alkaline Phosphatase 217 45-117 U/L Total Creatine Kinase 45 26-192 U/L Creatine Kinase MB 1.9 0.5-3.6 ng/ml Creatine Kinase MB Ratio 4.2 0-3.0 Troponin I < 0.015 0-0.045 ng/ml C-Reactive Protein 3.47 0-0.29 mg/dl Pro-B-Type Natriuretic Peptide 7301 0-900 pg/ml Total Protein 5.5 6.4-8.2 gm/dl Albumin 1.5 3.4-5.0 gm/dl Globulin 4.0 2.5-4.0 gm/dl Albumin/Globulin Ratio 0.4 0.9-2 Lipase 44 73-393 U/L Procalcitonin 0.29 0-0.5 ng/ml Microbiology Results 07/28/17 Blood Culture, Received Pending 07/28/17 Blood Culture, Received Pending Diagnostic Radiology KUB XR IMPRESSION: No evidence for a bowel obstruction. HEAD CT IMPRESSION: No acute intracranial findings. CXR IMPRESSION: No acute cardiopulmonary findings. Impression Assessment and Plan ALTERED MENTAL STATUS ACUTE ON CHRONIC KIDNEY DISEASE STAGE III HYPOTENSION DIARRHEA - admit patient to telemetry - patient presenting from the Endo lab for evaluation of altered mental status; in the ED patient was found to be hypotensive and also with a creatinine of 4.1 - per staff at [facility] and [id number], patient has had episodes of confusion for the past several months - this may be the patient's baseline however also possible metabolic encephalopathy from dehydration - head CT negative - has history of CKD with baseline creatinine that runs in the low 2's - scheduled for outpatient colonoscopy today for evaluation of diarrhea - likely prerenal FARZANEH due to dehydration from colonoscopy prep in combination with use of Bumex - hypotension likely from hypovolemia; no obvious signs of current infection, no leukocytosis or fever - IVF, follow up renal functions, hold diuretics and antihypertensives - noted [facility] however no obvious signs of cellulitis at this time - will hold Ceftin due to diarrhea and concern for possible C. Diff - check stool for C. difficile; history of severe C. Diff infection in the past requiring bowel resection and ileostomy - case discussed with Dr. Oakley, will consider reattempting colonoscopy once patient is stabilized ANEMIA - Patient noted to have a hemoglobin of 11.5 and May 2017 on outpatient records - Hemoglobin noted to be 8.9 today, however likely lower given significant dehydration - No obvious sources of bleeding, will check stool for his for Hemoccult - Trend H&H, hold Xarelto HISTORY OF DVT AND PE - holding Xarelto as above - noted history of HIT GERD - continue PPI and H2 cindy DYSLIPIDEMIA - continue statin HYPOTHYROIDISM - continue levothyroxine ANXIETY - continue duloxetine and buspirone DVT PROPHYLAXIS - SCDs due to anemia CODE STATUS - Patient is a full code as per my discussion with staff at [facility] - In my clinical judgment this beneficiary meets acute admission criteria, established by [facility], that includes being hospitalized through two midnights. Advanced Directives Existing Living Will: No Existing Power of Wildlife Refuge Specialist: No Resuscitation Status VTE Prophylaxis Will order VTE Prophylaxis: Yes Note ATTENDING ADDENDUM Record reviewed. Patient interviewed and examined. Care coordinated with JOSEP Her. Please refer to her documentation for patient's history. Briefly, 67-year-old female with history of C diff and other problems. Outpatient colonoscopy planned due to diarrhea and wt loss. Patient noted to be confused at the endoscopy center and was sent to the ED. Upon arrival to ED, she was found to be hypotensive and received fluid resuscitation. EXAM: General- adult female VS- as noted HEENT- anicteric Neck- supple Lungs- clear Heart- RRR Abdomen- distended, soft, nontender Extremities- trace pretibial edema Neuro- confused, agitated, appears to be hallucinating DATA: Hgb 8.9, WBC 10,260, plts 163,000. BUN 30, creatinine 4.11, K 5.1. Procalcitonin 0.29. Other lab studies as noted. ASSESSMENT AND PLAN: Hypotension. Acute kidney injury. Diarrhea. History of C diff colitis. Delirium. BP improved with fluid resuscitation. Follow labs. Check stool for C diff. GI consulted. Management of delirium- treat underlying conditions, avoid anticholinergic meds. Please refer to EDWARD Humphries's documentation for discussion of other issues. Cade Owens MD .
[2017-07-28] MEDS: SODIUM CHLORIDE 0.9% 1000ML 1,000 ML IV SCH (14:30)
[2017-07-28] MEDS: MAGNESIUM SULFATE 1GM / D5W 1 GM in PREMIXED IN D5W 100 ML IV SCH ×2 (14:31→16:34)
[2017-07-28 16:01] VITALS: BP 106/50; PULSE 89; TEMP 36.4; O2SAT 91
[2017-07-28 18:24] LABS: HEMATOCRIT 26.3 % (37-47); HEMOGLOBIN 8.8 g/dL (12.0-16.0)
[2017-07-28 20:00] VITALS: O2SAT 97
[2017-07-28 20:09] VITALS: BP 95/57; PULSE 87; TEMP 36.6
[2017-07-28] MEDS: NYSTATIN POWDER 15GM BTL EXT SCH (20:53)
[2017-07-28] MEDS: BOOST BREEZE NUTRITION DRINK 1 BOX PO SCH (20:54)
[2017-07-28] MEDS: ATORVASTATIN 10 MG TAB PO SCH ×2 (20:55→21:00)
[2017-07-28] MEDS: CALCIUM CARBONATE 500 MG CHEWABLE PO SCH ×2 (20:55→21:00)
[2017-07-28] MEDS: RANITIDINE HCL 150 MG TAB PO SCH ×2 (20:56→21:00)
[2017-07-28] MEDS: MUPIROCIN 2% OINT 22 GM TUBE SCH (21:00)
[2017-07-28 23:03] VITALS: BP 116/67; PULSE 91; TEMP 36.6; O2SAT 97
[2017-07-29] VITALS (9 sets, daily range): BP systolic 90–128; BP diastolic 50–64; PULSE 84–92; TEMP 36.4–36.9; O2SAT 96–99
[2017-07-29] MEDS ORDERED: VANCOMYCIN ENEMA PR ONE (01:00)
[2017-07-29] MEDS: METRONIDAZOLE / NSS 500 MG in PREMIXED NSS 100 ML IV SCH ×3 (01:29→17:10)
[2017-07-29] MEDS: SODIUM CHLORIDE 0.9% 1000ML 1,000 ML IV SCH ×3 (01:30→20:04)
[2017-07-29] MEDS: VANCOMYCIN HCL 125 MG/2.5ML SOLN PO SCH ×4 (01:30→21:06)
[2017-07-29] MEDS: RASPBERRY SYRUP 5 ML UDP PO SCH ×4 (01:31→20:04)
[2017-07-29] MEDS ORDERED: NURSING VERBAL MED ORDER ONE (02:45)
[2017-07-29] MEDS: LEVOTHYROXINE 200 MCG TAB PO SCH (05:35)
[2017-07-29 07:18] LABS: HEMATOCRIT 23.9 % (37-47); HEMOGLOBIN 8.2 g/dL (12.0-16.0); MEAN CELL VOLUME 94.5 fL (80-100); MEAN CORPUSCULAR HEMOGLOBIN 32.4 pg (25-34); MEAN CORPUSCULAR HGB CONC 34.3 g/dl (32-36); MEAN PLATELET VOLUME 10.1 fL (7.4-10.4); NUCLEATED RED BLOOD CELL ABS 0.04 K/uL (0-0); PLATELET COUNT 165 K/uL (130-400); RED CELL DISTRIBUTION WIDTH CV 19.8 % (11.5-14.5); RED CELL DISTRIBUTION WIDTH SD 66.9 fL (36.4-46.3); WHITE BLOOD COUNT 12.61 K/uL (4.8-10.8)
[2017-07-29 07:47] LABS: CALCIUM 8.1 mg/dl (8.5-10.1); CREATININE 3.64 mg/dl (0.60-1.20); POTASSIUM 4.7 mmol/L (3.5-5.1)
[2017-07-29] MEDS: NYSTATIN POWDER 15GM BTL EXT SCH ×2 (08:52→20:05)
[2017-07-29] MEDS: LORATADINE 10 MG TAB PO SCH (08:52)
[2017-07-29] MEDS: MUPIROCIN 2% OINT 22 GM TUBE SCH ×2 (08:52→20:05)
[2017-07-29] MEDS: RANITIDINE HCL 150 MG TAB PO SCH ×2 (08:52→20:06)
[2017-07-29] MEDS: CEROVITE ADV FORMULA TAB PO SCH (08:53)
[2017-07-29] MEDS: CALCIUM CARBONATE 500 MG CHEWABLE PO SCH ×2 (08:53→20:06)
[2017-07-29] MEDS: DULOXETINE HCL 60 MG CAP PO SCH (08:53)
[2017-07-29] MEDS ORDERED: PANTOprazole SOD 40 MG TAB PO SCH (09:00)
[2017-07-29] MEDS ORDERED: MoRPHine SULFATE 2 MG/ML CARP IV PRN (09:30)
--- NOTE | 2017-07-29 09:41 | Clinical Documentation Query ---
STERLING Kapoor : CLINICAL DOCUMENTATION QUERY Patient is a 67 year old female presenting for evaluation of altered mental status. Patient was found to be suffering from FARZANEH in the setting of diarrhea. C.Difficile specimen collected and returned positive in the setting of known history of C.Diff. Patient was ordered IV Flagyl and oral Vancomycin. As appropriate, consider documentation as suggested below in order to capture the specificity and POA status of this important clinical diagnosis. In your clinical opinion is this patient being managed for: ( X ) Enterocolitis due to recurrent Clostridium difficile, POA ( ) Not Agree ( ) Other explanation of clinical findings (Please Explain) ( ) Unable to determine (Please Define) ( ) Need to Discuss The medical record reflects the following clinical findings, treatment, and risk factors. Clinical Indicators: As above Treatment: IVF, serial labs, GI consult, IV Flagyl, PO Vancomycin, handwashing precautions Risk Factors: History of C.Diff, age, recent antibiotic use Please clarify and document your clinical opinion in the progress notes and discharge summary. Terms such as "probable", "suspected", "likely", "questionable", "possible", or "still to be ruled out" are acceptable. IF IN AGREEMENT, YOU MUST DOCUMENT ABOVE DIAGNOSTIC STATEMENT IN DAILY PROGRESS NOTES AND DISCHARGE SUMMARY. This document is not part of the patient's record. Thank You, Max Thornton, HYACINTH [phone]
--- NOTE | 2017-07-29 10:05 | Progress Note ---
Subjective Date of Service: Jul 29, 2017. Subjective Pt evaluation today including: conversation w/ patient, physical exam, lab review, review of studies, review of inpatient medication list Saw/examined the patient in room 220 excoriations noted throughout body and between skin folds patient states she's from [place] - tells me she can't remember how she got here states she did not have the colonoscopy yesterday, but does not know why she was getting one in the first place unsure of where she is now, underlying confusion c/o R hip pain, which she says is from arthritis states she's had diarrhea for four years now Review of Systems did not obtain due to unreliable history Medications Current Inpatient Medications Medications (Trade) Dose Ordered Sig/Rashid Route Start Time Stop Time Status Last Admin Dose Admin Acetaminophen (Tylenol Tab) 650 mg Q4H PRN PO 07/28/17 11:45 08/27/17 11:44 Ondansetron HCl (Zofran Inj) 4 mg Q6H PRN IV 07/28/17 11:45 08/27/17 11:44 Sodium Chloride 1,000 ml @ 100 mls/hr Q10H IV 07/28/17 14:00 08/27/17 13:59 07/29/17 01:30 100 MLS/HR Nystatin (Mycostatin Powder) 1 appln BID EXT 07/28/17 21:00 08/27/17 20:59 07/29/17 08:52 1 APPLN Atorvastatin Calcium (Lipitor Tab) 10 mg QPM PO 07/28/17 21:00 08/27/17 20:59 Duloxetine HCl (Cymbalta Cap) 60 mg QAM PO 07/29/17 09:00 08/28/17 08:59 07/29/17 08:53 60 MG Levothyroxine Sodium (Synthroid Tab) 200 mcg DAILYBB PO 07/29/17 06:00 08/28/17 05:59 07/29/17 05:35 200 MCG Loratadine (Claritin Tab) 10 mg DAILY PO 07/29/17 09:00 08/28/17 08:59 07/29/17 08:52 10 MG Multivitamins/ Minerals (Multivitamin W/ Minerals Tab) 1 tab QAM PO 07/29/17 09:00 08/28/17 08:59 07/29/17 08:53 1 TAB Pantoprazole Sodium (Protonix Tab) 40 mg QAM PO 07/29/17 09:00 08/28/17 08:59 07/29/17 08:53 40 MG Ranitidine HCl (zANTac TAB) 150 mg BID PO 07/28/17 21:00 08/27/17 20:59 07/29/17 08:52 150 MG Buspirone HCl (Buspar Tab) 10 mg TID PO 07/28/17 14:00 08/27/17 13:59 07/29/17 08:53 10 MG Calcium Carbonate (Tums Chew Tab) 500 mg BID PO 07/28/17 21:00 08/27/17 20:59 07/29/17 08:53 500 MG Enteral Nutritional Formula (Boost Breeze Nutritional Drink) 1 box HS PO 07/28/17 21:00 08/27/17 20:59 07/28/17 20:54 1 BOX Mupirocin (Bactroban 2% Oint) 1 appln BID NA 07/28/17 21:00 08/27/17 20:59 07/29/17 08:52 1 APPLN Vancomycin HCl (Vancomycin Oral Soln) 125 mg Q6H PO 07/29/17 02:00 08/11/17 23:44 07/29/17 08:58 125 MG Raspberry (Raspberry Syrup 5ml Cup) 5 ml Q6H PO 07/29/17 02:00 08/12/17 01:59 07/29/17 08:58 5 ML Metronidazole 500 mg/Prmx 100 ml @ 100 mls/hr Q8H IV 07/29/17 02:00 08/11/17 23:44 07/29/17 08:53 100 MLS/HR Objective Vital Signs Date Time Temp Pulse Resp B/P (MAP) Pulse Ox O2 Delivery O2 Flow Rate FiO2 07/29/17 08:00 36.8 92 20 90/50 (63) 99 Room Air 07/29/17 04:08 36.4 88 20 94/55 (68) 07/29/17 04:00 97 Room Air 07/29/17 00:01 97 Room Air 07/28/17 23:03 36.6 91 22 116/67 (83) 97 Room Air 07/28/17 20:09 36.6 87 22 95/57 (70) 07/28/17 20:00 97 Room Air 07/28/17 16:01 36.4 89 20 106/50 (68) 91 Room Air 07/28/17 16:00 Room Air 07/28/17 13:39 36.4 81 20 99/63 (75) 100 Room Air 07/28/17 13:04 89 20 106/66 97 Room Air 07/28/17 12:02 99 Room Air 07/28/17 11:32 76 100/49 07/28/17 10:59 82 18 79/63 Room Air 07/28/17 10:35 85 107/52 07/28/17 10:18 79/57 07/28/17 10:09 99 Room Air 07/28/17 09:57 107/57 07/28/17 09:44 86 07/28/17 09:39 72/57 Physical Exam General Appearance: no apparent distress, + pertinent finding (underlying confusion) Respiratory/Chest: chest non-tender, lungs clear, normal breath sounds, no respiratory distress, no accessory muscle use Cardiovascular: regular rate, rhythm, no edema, no murmur Extremities: normal range of motion, non-tender, normal inspection, no pedal edema, no calf tenderness Neurologic/Psychiatric: alert, normal mood/affect, + disoriented Skin: + pertinent finding (excoriations noted throughout body, between skin folds, inguinal region/under breasts) Laboratory Results Last 24 Hours Test 07/28/17 09:47 07/28/17 10:00 07/28/17 10:10 07/28/17 17:56 Bedside Glucose 73 mg/dl Urine Color DK YELLOW Urine Appearance CLEAR Urine pH 5.0 Urine Specific [place] 1.019 Urine Protein NEG Urine Glucose (UA) NEG Urine Ketones TRACE Urine Occult Blood NEG Urine Nitrite NEG Urine Bilirubin NEG Urine Urobilinogen NEG Urine Leukocyte Esterase SMALL Urine WBC (Auto) 1-5 /hpf Urine RBC (Auto) 0-4 /hpf Urine Hyaline Casts (Auto) 5-10 /lpf Urine Epithelial Cells (Auto) 20-30 /lpf Urine Bacteria (Auto) NEG White Blood Count 10.26 K/uL Red Blood Count 2.80 M/uL Hemoglobin 8.9 g/dL 8.8 g/dL Hematocrit 26.6 % 26.3 % Mean Corpuscular Volume 95.0 fL Mean Corpuscular Hemoglobin 31.8 pg Mean Corpuscular Hemoglobin Concent 33.5 g/dl Platelet Count 163 K/uL Mean Platelet Volume 10.0 fL Neutrophils (%) (Auto) 43.2 % Lymphocytes (%) (Auto) 21.1 % Monocytes (%) (Auto) 19.7 % Eosinophils (%) (Auto) 14.6 % Basophils (%) (Auto) 0.5 % Neutrophils # (Auto) 4.44 K/uL Lymphocytes # (Auto) 2.16 K/uL Monocytes # (Auto) 2.02 K/uL Eosinophils # (Auto) 1.50 K/uL Basophils # (Auto) 0.05 K/uL RDW Standard Deviation 66.4 fL RDW Coefficient of Variation 19.6 % Immature Granulocyte % (Auto) 0.9 % Immature Granulocyte # (Auto) 0.09 K/uL Nucleated RBC Absolute Count (auto) 0.04 K/uL Nucleated Red Blood Cells % 0.4 % Anisocytosis PRESENT Pappenheimer Bodies 2+ Target Cells 1+ Erythrocyte Sedimentation Rate 23 mm/hr Prothrombin Time 12.7 SECONDS Prothromb Time International Ratio 1.2 Activated Partial Thromboplast Time 28.5 SECONDS Partial Thromboplastin Ratio 1.1 Venous Blood pH 7.27 Venous Blood Partial Pressure CO2 36 mmHg Venous Blood Partial Pressure O2 28 mmHg Venous Blood HCO3 16 mmol/L Venous Blood Oxygen Saturation < 60.0 % Venous Blood Base Excess -9.9 mEq/L Sodium Level 141 mmol/L Potassium Level 5.1 mmol/L Chloride Level 115 mmol/L Carbon Dioxide Level 15 mmol/L Anion Gap 11.0 mmol/L Blood Urea Nitrogen 30 mg/dl Creatinine 4.11 mg/dl Est Creatinine Clear Calc Drug Dose 10.4 ml/min Estimated GFR () 12.1 Estimated GFR (Non- 10.4 BUN/Creatinine Ratio 7.3 Random Glucose 107 mg/dl Calcium Level 8.5 mg/dl Phosphorus Level 3.9 mg/dl Magnesium Level 1.2 mg/dl Total Bilirubin 0.6 mg/dl Aspartate Amino Transf (AST/SGOT) 24 U/L Alanine Aminotransferase (ALT/SGPT) 14 U/L Alkaline Phosphatase 217 U/L Total Creatine Kinase 45 U/L Creatine Kinase MB 1.9 ng/ml Creatine Kinase MB Ratio 4.2 Troponin I < 0.015 ng/ml C-Reactive Protein 3.47 mg/dl Pro-B-Type Natriuretic Peptide 7301 pg/ml Total Protein 5.5 gm/dl Albumin 1.5 gm/dl Globulin 4.0 gm/dl Albumin/Globulin Ratio 0.4 Lipase 44 U/L Procalcitonin 0.29 ng/ml Test 07/29/17 07:11 White Blood Count 12.61 K/uL Red Blood Count 2.53 M/uL Hemoglobin 8.2 g/dL Hematocrit 23.9 % Mean Corpuscular Volume 94.5 fL Mean Corpuscular Hemoglobin 32.4 pg Mean Corpuscular Hemoglobin Concent 34.3 g/dl RDW Standard Deviation 66.9 fL RDW Coefficient of Variation 19.8 % Platelet Count 165 K/uL Mean Platelet Volume 10.1 fL Nucleated RBC Absolute Count (auto) 0.04 K/uL Nucleated Red Blood Cells % 0.3 % Sodium Level 143 mmol/L Potassium Level 4.7 mmol/L Chloride Level 119 mmol/L Carbon Dioxide Level 15 mmol/L Anion Gap 9.0 mmol/L Blood Urea Nitrogen 29 mg/dl Creatinine 3.64 mg/dl Est Creatinine Clear Calc Drug Dose 11.9 ml/min Estimated GFR () 14.0 Estimated GFR (Non- 12.0 BUN/Creatinine Ratio 7.9 Random Glucose 93 mg/dl Calcium Level 8.1 mg/dl Magnesium Level 2.6 mg/dl Assessment and Plan This is a 67 year old female with a PMH of C. 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 diff Acute Kidney Injury superimposed on CKD stage 3 Hypotension & Hyperchloremic Metabolic Acidosis secondary to Severe Dehydration and Recurrent C. Diff Colitis 07/29 * as per records, patient was seen by gastroenterology in May 2017 due to multiple complaints; including dysphagia, nausea/vomiting/diarrhea and weight loss * plan was made for EGD to evaluate dysphagia as well as colonoscopy due to sigmoid colon wall thickening * patient was at the endoscopy suite on 07/28, but was very confused and could not consent to the procedure; she was sent to the ED for further evaluation * patient was found to have severely dehydrated; creatinine up to > 4, baseline creat is around 1.1; she is hyperchloremic, low bicarb noted; likely secondary to diarrhea * she was found positive for c. diff in the stool - started on oral Vanco and IV Flagyl, which we can continue - GI consulted for further input * patient was found to be significantly hypotensive on admission - blood pressure improving now; will continue IV fluids running at 100mL/hr for now * creatinine improved to 3.64 on 07/29; recheck CBC and BMP at 1300 and then in AM Anemia 07/29 * patient with a baseline anemia, unknown cause, possibly iron deficiency * in February 2017, as per outpatient records, her Hgb had been around 7.2-.7.3, which may be her baseline * currently, her Hgb is 8.2, but with severe dehydration, that may be hemoconcentrated * will monitor Hgb and transfuse if <7 * stool occult blood pending * hold Xarelto at this time Hx. of PE/DVT * hold Xarelto, SCDs for now GERD * continue PPI and Zantac Multiple Skin Excoriations Intertrigo * wound care nurse consulted Hypothyroidism * continue Synthroid Mood Disorder * continue duloxetine and buspirone DVT ppx * SCDs FULL CODE
[2017-07-29 13:43] LABS: CALCIUM 8.1 mg/dl (8.5-10.1); CREATININE 3.55 mg/dl (0.60-1.20); POTASSIUM 4.6 mmol/L (3.5-5.1)
--- NOTE | 2017-07-29 14:19 | Gastrointestinal Consultation ---
Gastrointestinal Consultation Date of Consultation: Jul 29, 2017 Attending Physician: Dr. Ha Consulting Physician: Dr. Will Oakley Reason for Consultation: recurrent C-diff History of Present Illness Patient is a 67 year old female patient who was scheduled for EGD and colonoscopy yesterday for anemia and diarrhea. The procedures were cancelled because she was confused and not able to tell us if she had completed the prep. She was evaluated by the hospitalist service and admitted for her diarrhea, anemia, confusion and acute kidney injury (Cr 4, up from baseline 1). On admission, her C-diff test was positive and she is being treated with Vanco and Flagyl. She is improved this morning: being more awake and alert than yesterday. She tells me that she has had diarrhea for months, but that it has been better in the past few weeks. She denies abdominal pain, nausea, vomiting, melena or hematochezia. Regarding her anemia, she was 8.5 on arrival, down from 11.6 in March 2017 ( she had received 2 units of RBCs a week prior to Apr 04). Her MVC is normalcytic and she has significant renal disease, with an estimated GFR of 12. Past Medical/Surgical History Past Medical History: 1. Obesity 2. C-diff diarrhea 3. CKD-3 4. Arthritis 5. DVT 6. Peritonitis from perforated gastric ulcer in 2013. 7. HIT 8. PE 9. SBO 2016 Past Surgical History: 1. Exp lap in 2013 at [place] for perforated gastric ulcer 2. IVC filter 3. Hernia repair (incarcerated with SBO), SBO (small bowel obstruction), lysis of adhesions, repair of parastomal hernia, reversal of loop ileostomy w small bowel resection, take down of gastrocutaneous fistula and rectrorectus hernia repair w mesh placement in 2016 Family History Heart disease FATHER (fatal DC at age 60) Social History Smoking Status: Never Smoker Alcohol Use: none Housing Status: care home Allergies Coded Allergies: Heparin (Verified Allergy, Unknown, UNKNOWN, 07/28/17) Meperidine (Verified Allergy, Unknown, unknown, 07/28/17) Current Medications Home Meds and Scripts Medications Dose Route/Sig Max Daily Dose Days Date Category Dose Instructions Silenor (Doxepin Hcl (Sleep)) 3 Mg Tab 3 Mg PO HS 07/28/17 Reported Calcium Carbonate Extra S (Calcium Carbonate (Antacid)) 750 Mg Chw 750 Mg PO BID 07/28/17 Reported Vitamin D 83009 Unit (Ergocalciferol) 50,000 Unit Cap 50,000 Unit PO WK 07/28/17 Reported TAKES THURSDAYS Nutritional Drink (Nutritional Supplements) 1 Liq Liq 1 Btl PO HS 07/28/17 Reported Claritin (Loratadine) 10 Mg Tab 10 Mg PO DAILY 07/28/17 Reported TAKE FOR 7 DAYS. STARTED 07/24/17 Ceftin (Cefuroxime Axetil) 250 Mg Tab 250 Mg PO TID 07/28/17 Reported TAKE FOR 7 DAYS. STARTED 07/24/17 Synthroid (Levothyroxine Sodium) 200 Mcg Tab 200 Mcg PO DAILY 07/28/17 Reported Zofran (Ondansetron HCl) 4 Mg Tab 4 Mg PO Q6H PRN 07/22/17 Reported Micro-K Ext Rel (Potassium Chloride) 10 Meq Capcr 10 Meq PO 5X DAY 07/22/17 Reported Protonix (Pantoprazole Sodium) 40 Mg Tab 40 Mg PO QAM 07/22/17 Reported Mvi With Minerals (Multivitamins/Minerals) Tab 1 Tab PO QAM 07/10/17 Reported Inderal (Propranolol HCl) 10 Mg Tab 10 Mg PO BID 07/04/17 Reported Claritin (Loratadine) 10 Mg Tab 10 Mg PO DAILY PRN 07/04/17 Reported Buspirone Hcl 10 Mg Tab 10 Mg PO TID 07/04/17 Reported Lipitor (Atorvastatin Calcium) 10 Mg Tab 10 Mg PO QPM 07/04/17 Reported Tylenol Arthritis Ext Rel (Acetaminophen) 650 Mg Cplt 650 Mg PO Q8H PRN 07/04/17 Reported Zantac (Ranitidine HCl) 150 Mg Tab 150 Mg PO BID 07/04/17 Reported Xarelto (Rivaroxaban) 20 Mg Tab 20 Mg PO DAILY 07/04/17 Reported Flonase Allergy Relief (Fluticasone Propionate (Nasal)) 50 Mcg/Act Spr 1 [place] CLE[place]ENC[place] DAILY 07/04/17 Reported Cymbalta (Duloxetine HCl) 60 Mg Cap 60 Mg PO QAM 07/04/17 Reported Bumex (Bumetanide) 2 Mg Tab 2 Mg PO QAM 07/04/17 Reported Review of Systems Constitutional: No fever, No chills, No sweats, No weight loss, No weakness Eyes: No eye pain, No redness ENT: No sore throat, No trouble swallowing, No pain on swallowing Respiratory: No cough, No wheezing, No shortness of breath, No dyspnea on exertion Cardiac: No chest pain, No edema, No palpitations Abdomen: + see HPI, + diarrhea, No pain, No nausea, No vomiting, No constipation, No GI bleeding Neuro: No memory loss, No weakness, No numbness/tingling, No vertigo, No balance problems Psych: No depression symptoms, No anxiety, No insomnia Heme: No abnormal bleeding/bruising, No night sweats Endo: No excessive thirst, No excessive urination Skin: No rash, No itch, No new/changing skin lesions, No jaundice Physical Exam Date Time Temp Pulse Resp B/P (MAP) Pulse Ox O2 Delivery O2 Flow Rate FiO2 07/29/17 08:00 36.8 92 20 90/50 (63) 99 Room Air 07/29/17 08:00 Room Air 07/29/17 04:08 36.4 88 20 94/55 (68) 07/29/17 04:00 97 Room Air 07/29/17 00:01 97 Room Air 07/28/17 23:03 36.6 91 22 116/67 (83) 97 Room Air 07/28/17 20:09 36.6 87 22 95/57 (70) 07/28/17 20:00 97 Room Air 07/28/17 16:01 36.4 89 20 106/50 (68) 91 Room Air 07/28/17 16:00 Room Air General Appearance: no apparent distress Eyes: normal inspection, EOMI Neck: supple, no adenopathy, thyroid normal, no JVD Respiratory/Chest: chest non-tender, lungs clear, normal breath sounds, no accessory muscle use Cardiovascular: regular rate, rhythm, no JVD, no murmur Abdomen: normal bowel sounds, non tender, soft, no organomegaly Extremities: normal inspection, no pedal edema, normal capillary refill Neurologic/Psych: alert, normal mood/affect, oriented x 3 Skin: normal color, no jaundice, warm/dry, no rash Laboratory Results Last 24 Hours Test 07/28/17 17:56 07/29/17 07:11 07/29/17 13:05 07/29/17 13:28 Hemoglobin 8.8 g/dL 8.2 g/dL Hematocrit 26.3 % 23.9 % White Blood Count 12.61 K/uL Red Blood Count 2.53 M/uL Mean Corpuscular Volume 94.5 fL Mean Corpuscular Hemoglobin 32.4 pg Mean Corpuscular Hemoglobin Concent 34.3 g/dl RDW Standard Deviation 66.9 fL RDW Coefficient of Variation 19.8 % Platelet Count 165 K/uL Mean Platelet Volume 10.1 fL Nucleated RBC Absolute Count (auto) 0.04 K/uL Nucleated Red Blood Cells % 0.3 % Sodium Level 143 mmol/L 141 mmol/L Potassium Level 4.7 mmol/L 4.6 mmol/L Chloride Level 119 mmol/L 118 mmol/L Carbon Dioxide Level 15 mmol/L 13 mmol/L Anion Gap 9.0 mmol/L 10.0 mmol/L Blood Urea Nitrogen 29 mg/dl 27 mg/dl Creatinine 3.64 mg/dl 3.55 mg/dl Est Creatinine Clear Calc Drug Dose 11.9 ml/min 12.2 ml/min Estimated GFR () 14.0 14.4 Estimated GFR (Non- 12.0 12.4 BUN/Creatinine Ratio 7.9 7.6 Random Glucose 93 mg/dl 101 mg/dl Calcium Level 8.1 mg/dl 8.1 mg/dl Magnesium Level 2.6 mg/dl 2.5 mg/dl Impression Patient is a 67 year old female with: 1. Anemia, likely multifactorial including chronic kidney disease. 2. C-diff diarrhea Plan 1. Appreciate primary hospitalist service management of acute on chronic kidney injury. 2. After pt is medically stabilized, then will go forward with EGD/Colonoscopy for anemia. 3. Continue Vanco 125mg QID. 4. Liquid diet, advance as tolerated. I saw and evaluated the patient. We are consulted due to history of diarrhea and difficulty swallowing. The patient had initially presented to hospital yesterday for an outpatient colonoscopy done on an elective basis. Upon presentation she had an altered mental status and no history was available to us. She was admitted and found to have worsening renal insufficiency which is thought to be related to her bowel prep and diuretic use. The patient is unable to give any historical information today. Physical examination Ill-appearing female No scleral icterus No abdominal tenderness Impression: Patient with diarrhea found to be C. difficile positive. I would recommend that she undergo a full course of therapy before consideration of a colonoscopy. Given her anemia and upper endoscopy and colonoscopy will be helpful once her mental status is improved renal failure resolved. Given the renal insufficiency she will likely need repeat bowel preparation with GoLYTELY as this is less likely to cause renal failure Recommendations Vancomycin 125 4 times daily 10 days We will arrange outpatient upper endoscopy and colonoscopy The skull with any questions or concerns
[2017-07-29 16:02] LABS: HEMATOCRIT 23.2 % (37-47); HEMOGLOBIN 7.8 g/dL (12.0-16.0); MEAN CELL VOLUME 94.7 fL (80-100); MEAN CORPUSCULAR HEMOGLOBIN 31.8 pg (25-34); PLATELET COUNT 149 K/uL (130-400); RED CELL DISTRIBUTION WIDTH CV 19.9 % (11.5-14.5); RED CELL DISTRIBUTION WIDTH SD 66.5 fL (36.4-46.3); WHITE BLOOD COUNT 11.58 K/uL (4.8-10.8)
[2017-07-29 16:04] LABS: MEAN CORPUSCULAR HGB CONC 33.6 g/dl (32-36)
[2017-07-29] MEDS: BUTT PASTE 171 APPLN/57 GM JAR EXT PRN (17:11)
[2017-07-29] MEDS: BOOST BREEZE NUTRITION DRINK 1 BOX PO SCH (20:04)
[2017-07-29] MEDS: ATORVASTATIN 10 MG TAB PO SCH (20:05)
[2017-07-30] VITALS (12 sets, daily range): BP systolic 90–106; BP diastolic 54–71; PULSE 83–97; TEMP 36.4–37.4; O2SAT 92–100
[2017-07-30] MEDS: RASPBERRY SYRUP 5 ML UDP PO SCH ×4 (02:30→19:37)
[2017-07-30] MEDS: METRONIDAZOLE / NSS 500 MG in PREMIXED NSS 100 ML IV SCH ×3 (02:30→17:36)
[2017-07-30] MEDS: VANCOMYCIN HCL 125 MG/2.5ML SOLN PO SCH ×5 (02:30→19:37)
[2017-07-30 05:46] LABS: BASO % 0.2 %; BASO ABS # 0.03 K/uL (0-0.2); EOS % 10.9 %; EOS ABS # 1.32 K/uL (0-0.5); HEMATOCRIT 22.8 % (37-47); HEMOGLOBIN 7.6 g/dL (12.0-16.0); IG# 0.04 K/uL (0.00-0.02); LYMPH % 29.6 %; LYMPH ABS # 3.58 K/uL (1.2-3.4); MEAN CELL VOLUME 94.6 fL (80-100); MEAN CORPUSCULAR HEMOGLOBIN 31.5 pg (25-34); MEAN CORPUSCULAR HGB CONC 33.3 g/dl (32-36); MEAN PLATELET VOLUME 9.8 fL (7.4-10.4); MONO % 15.8 %; MONO ABS # 1.91 K/uL (0.11-0.59); NEUT % 43.2 %; PLATELET COUNT 127 K/uL (130-400); RED CELL DISTRIBUTION WIDTH CV 20.2 % (11.5-14.5); RED CELL DISTRIBUTION WIDTH SD 67.2 fL (36.4-46.3); WHITE BLOOD COUNT 12.08 K/uL (4.8-10.8)
[2017-07-30 06:16] LABS: CALCIUM 7.7 mg/dl (8.5-10.1); CREATININE 3.46 mg/dl (0.60-1.20); POTASSIUM 4.3 mmol/L (3.5-5.1)
[2017-07-30] MEDS: ACETAMINOPHEN 325 MG TAB PO PRN (06:16)
[2017-07-30] MEDS: LEVOTHYROXINE 200 MCG TAB PO SCH (06:16)
[2017-07-30] MEDS: NYSTATIN POWDER 15GM BTL EXT SCH ×2 (08:54→19:37)
[2017-07-30] MEDS: MUPIROCIN 2% OINT 22 GM TUBE SCH ×2 (08:54→19:38)
[2017-07-30] MEDS: LORATADINE 10 MG TAB PO SCH (09:00)
[2017-07-30] MEDS ORDERED: FAMOTIDINE IV INJ 20 MG in DEXTROSE 5% 100ML 100 ML IV SCH (09:00)
[2017-07-30] MEDS: DULOXETINE HCL 60 MG CAP PO SCH (09:00)
[2017-07-30] MEDS: CEROVITE ADV FORMULA TAB PO SCH (09:00)
[2017-07-30] MEDS: CALCIUM CARBONATE 500 MG CHEWABLE PO SCH ×2 (09:00→19:39)
--- NOTE | 2017-07-30 09:19 | Progress Note ---
Subjective Date of Service: Jul 30, 2017. Subjective Pt evaluation today including: conversation w/ patient, physical exam, lab review, review of studies, review of inpatient medication list Saw/examined the patient in room 220 She is very agitated this morning She is screaming and unwilling to take her medications She does not know where she is She does state that she has no pain anywhere, but unwilling to tell me anything further As per nursing, no diarrhea yesterday or today Review of Systems Cannot obtain due to patient's mental status Medications Current Inpatient Medications Medications (Trade) Dose Ordered Sig/Rashid Route Start Time Stop Time Status Last Admin Dose Admin Acetaminophen (Tylenol Tab) 650 mg Q4H PRN PO 07/28/17 11:45 08/27/17 11:44 07/30/17 06:16 650 MG Ondansetron HCl (Zofran Inj) 4 mg Q6H PRN IV 07/28/17 11:45 08/27/17 11:44 Sodium Chloride 1,000 ml @ 150 mls/hr Q6H40M IV 07/28/17 14:00 08/27/17 13:59 07/29/17 20:04 100 MLS/HR Nystatin (Mycostatin Powder) 1 appln BID EXT 07/28/17 21:00 08/27/17 20:59 07/30/17 08:54 1 APPLN Atorvastatin Calcium (Lipitor Tab) 10 mg QPM PO 07/28/17 21:00 08/27/17 20:59 07/29/17 20:05 10 MG Duloxetine HCl (Cymbalta Cap) 60 mg QAM PO 07/29/17 09:00 08/28/17 08:59 07/29/17 08:53 60 MG Loratadine (Claritin Tab) 10 mg DAILY PO 07/29/17 09:00 08/28/17 08:59 07/29/17 08:52 10 MG Multivitamins/ Minerals (Multivitamin W/ Minerals Tab) 1 tab QAM PO 07/29/17 09:00 08/28/17 08:59 07/29/17 08:53 1 TAB Buspirone HCl (Buspar Tab) 10 mg TID PO 07/28/17 14:00 08/27/17 13:59 07/29/17 20:05 10 MG Calcium Carbonate (Tums Chew Tab) 500 mg BID PO 07/28/17 21:00 08/27/17 20:59 07/29/17 20:06 500 MG Enteral Nutritional Formula (Boost Breeze Nutritional Drink) 1 box HS PO 07/28/17 21:00 08/27/17 20:59 07/29/17 20:04 1 BOX Mupirocin (Bactroban 2% Oint) 1 appln BID NA 07/28/17 21:00 08/27/17 20:59 07/30/17 08:54 1 APPLN Vancomycin HCl (Vancomycin Oral Soln) 125 mg Q6H PO 07/29/17 02:00 08/11/17 23:44 07/30/17 02:30 125 MG Raspberry (Raspberry Syrup 5ml Cup) 5 ml Q6H PO 07/29/17 02:00 08/12/17 01:59 07/30/17 02:30 5 ML Metronidazole 500 mg/Prmx 100 ml @ 100 mls/hr Q8H IV 07/29/17 02:00 08/11/17 23:44 07/30/17 02:30 100 MLS/HR Morphine Sulfate (MoRPHine SULFATE INJ) 1 mg Q6 PRN IV 07/29/17 09:30 08/12/17 09:29 Pantoprazole Sodium 40 mg/ Syringe 10 ml @ 5 mls/min DAILY@11 IV 07/30/17 11:00 08/29/17 10:59 UNV Famotidine 20 mg/ Dextrose 102 ml @ 200 mls/hr Q12H IV 07/30/17 09:00 08/29/17 08:59 UNV Levothyroxine Sodium 100 mcg/ Syringe 5 ml @ 2 mls/min DAILY@09 IV 07/30/17 09:00 08/29/17 08:59 UNV Objective Vital Signs Date Time Temp Pulse Resp B/P (MAP) Pulse Ox O2 Delivery O2 Flow Rate FiO2 07/30/17 08:05 37.2 92 18 90/54 (66) 97 07/30/17 04:00 Room Air 07/30/17 03:44 37.3 92 18 94/57 (69) 95 Room Air 07/29/17 23:59 Room Air 07/29/17 23:45 36.9 84 20 97/58 (71) 96 Room Air 07/29/17 20:13 36.5 87 20 128/64 (85) 99 Room Air 07/29/17 20:00 99 Room Air 07/29/17 16:03 36.6 85 20 94/53 (67) 96 Room Air 07/29/17 16:00 99 Room Air 07/29/17 12:00 Room Air Physical Exam General Appearance: + obese, + pertinent finding (very agitated, unable to perform physical as she will not allow anyone to touch her - disoriented) Respiratory/Chest: no respiratory distress, no accessory muscle use Neurologic/Psychiatric: + disoriented, + pertinent finding (+agitated) Laboratory Results Last 24 Hours Test 07/29/17 13:05 07/29/17 15:54 07/30/17 05:24 Sodium Level 141 mmol/L 142 mmol/L Potassium Level 4.6 mmol/L 4.3 mmol/L Chloride Level 118 mmol/L 117 mmol/L Carbon Dioxide Level 13 mmol/L 15 mmol/L Anion Gap 10.0 mmol/L 10.0 mmol/L Blood Urea Nitrogen 27 mg/dl 26 mg/dl Creatinine 3.55 mg/dl 3.46 mg/dl Est Creatinine Clear Calc Drug Dose 12.2 ml/min 12.4 ml/min Estimated GFR () 14.4 14.8 Estimated GFR (Non- 12.4 12.8 BUN/Creatinine Ratio 7.6 7.5 Random Glucose 101 mg/dl 92 mg/dl Calcium Level 8.1 mg/dl 7.7 mg/dl Magnesium Level 2.5 mg/dl 2.2 mg/dl White Blood Count 11.58 K/uL 12.08 K/uL Red Blood Count 2.45 M/uL 2.41 M/uL Hemoglobin 7.8 g/dL 7.6 g/dL Hematocrit 23.2 % 22.8 % Mean Corpuscular Volume 94.7 fL 94.6 fL Mean Corpuscular Hemoglobin 31.8 pg 31.5 pg Mean Corpuscular Hemoglobin Concent 33.6 g/dl 33.3 g/dl RDW Standard Deviation 66.5 fL 67.2 fL RDW Coefficient of Variation 19.9 % 20.2 % Platelet Count 149 K/uL 127 K/uL Mean Platelet Volume 10.0 fL 9.8 fL Neutrophils (%) (Auto) 43.2 % Lymphocytes (%) (Auto) 29.6 % Monocytes (%) (Auto) 15.8 % Eosinophils (%) (Auto) 10.9 % Basophils (%) (Auto) 0.2 % Neutrophils # (Auto) 5.20 K/uL Lymphocytes # (Auto) 3.58 K/uL Monocytes # (Auto) 1.91 K/uL Eosinophils # (Auto) 1.32 K/uL Basophils # (Auto) 0.03 K/uL Immature Granulocyte % (Auto) 0.3 % Immature Granulocyte # (Auto) 0.04 K/uL Neutrophils % (Manual) % Lymphocytes % (Manual) % Monocytes % (Manual) % Eosinophils % (Manual) % Neutrophils # (Manual) K/uL Total Absolute Neutrophils K/uL Lymphocytes # (Manual) K/uL Total Absolute Lymphocytes K/uL Monocytes # (Manual) K/uL Eosinophils # (Manual) K/uL Hypochromasia PRESENT Anisocytosis PRESENT Pappenheimer Bodies 1+ Target Cells 1+ Assessment and Plan This is a 67 year old female with a PMH of C. 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 diff Acute Kidney Injury superimposed on CKD stage 3 Hypotension & Hyperchloremic Metabolic Acidosis secondary to Severe Dehydration and Recurrent C. Diff Colitis 07/30 * creatinine is slightly improving, though not much; so I'll increase the IVF rate to 150mL/hr * will continue IV Flagyl - patient is very agitated and refusing medications this morning - will try oral Vanco throughout the day * appreciate GI input - outpatient EGD and colonoscopy for evaluation of anemia + diarrhea 07/29 * as per records, patient was seen by gastroenterology in May 2017 due to multiple complaints; including dysphagia, nausea/vomiting/diarrhea and weight loss * plan was made for EGD to evaluate dysphagia as well as colonoscopy due to sigmoid colon wall thickening * patient was at the endoscopy suite on 07/28, but was very confused and could not consent to the procedure; she was sent to the ED for further evaluation * patient was found to have severely dehydrated; creatinine up to > 4, baseline creat is around 1.1; she is hyperchloremic, low bicarb noted; likely secondary to diarrhea * she was found positive for c. diff in the stool - started on oral Vanco and IV Flagyl, which we can continue - GI consulted for further input * patient was found to be significantly hypotensive on admission - blood pressure improving now; will continue IV fluids running at 100mL/hr for now * creatinine improved to 3.64 on 07/29; recheck CBC and BMP at 1300 and then in AM Anemia 07/30 * Hgb down to 7.6 * patient baseline is likely around the 7.2-7.3 region * holding Xarelto, but will likely restart prior to discharge as this anemia is a chronic issue 07/29 * patient with a baseline anemia, unknown cause, possibly iron deficiency * in February 2017, as per outpatient records, her Hgb had been around 7.2-.7.3, which may be her baseline * currently, her Hgb is 8.2, but with severe dehydration, that may be hemoconcentrated * will monitor Hgb and transfuse if <7 * stool occult blood pending * hold Xarelto at this time Hx. of PE/DVT * hold Xarelto, SCDs for now GERD * continue PPI and Zantac Multiple Skin Excoriations Intertrigo * wound care nurse consulted Hypothyroidism * continue Synthroid Mood Disorder * continue duloxetine and buspirone DVT ppx * SCDs FULL CODE
[2017-07-30] MEDS: SODIUM CHLORIDE 0.9% 1000ML 1,000 ML IV SCH ×2 (10:46→17:36)
[2017-07-30] MEDS: PANTOprazole INJ 40 MG in SYRINGE 0 ML IV SCH (10:47)
[2017-07-30] MEDS: FAMOTIDINE IV INJ 20 MG in SYRINGE 3 ML IV SCH ×2 (10:47→21:42)
[2017-07-30] MEDS: BOOST BREEZE NUTRITION DRINK 1 BOX PO SCH (19:38)
[2017-07-30] MEDS: ATORVASTATIN 10 MG TAB PO SCH (19:39)
[2017-07-31] VITALS (7 sets, daily range): BP systolic 102–123; BP diastolic 61–77; PULSE 68–96; TEMP 36.5–37.2; O2SAT 91–98
[2017-07-31] MEDS: SODIUM CHLORIDE 0.9% 1000ML 1,000 ML IV SCH ×2 (01:23→01:25)
[2017-07-31] MEDS: RASPBERRY SYRUP 5 ML UDP PO SCH ×5 (01:24→20:15)
[2017-07-31] MEDS: METRONIDAZOLE / NSS 500 MG in PREMIXED NSS 100 ML IV SCH ×3 (01:24→17:20)
[2017-07-31] MEDS: VANCOMYCIN HCL 125 MG/2.5ML SOLN PO SCH ×5 (01:24→20:15)
[2017-07-31] MEDS: BUTT PASTE 171 APPLN/57 GM JAR EXT PRN (01:30)
[2017-07-31 05:36] LABS: HEMATOCRIT 23.1 % (37-47); HEMOGLOBIN 7.7 g/dL (12.0-16.0); MEAN CELL VOLUME 94.7 fL (80-100); MEAN CORPUSCULAR HEMOGLOBIN 31.6 pg (25-34); MEAN CORPUSCULAR HGB CONC 33.3 g/dl (32-36); MEAN PLATELET VOLUME 9.5 fL (7.4-10.4); NUCLEATED RED BLOOD CELL ABS 0.09 K/uL (0-0); PLATELET COUNT 111 K/uL (130-400); RED CELL DISTRIBUTION WIDTH CV 20.8 % (11.5-14.5); WHITE BLOOD COUNT 11.34 K/uL (4.8-10.8)
[2017-07-31 06:00] LABS: CALCIUM 7.8 mg/dl (8.5-10.1); CREATININE 2.99 mg/dl (0.60-1.20)
[2017-07-31] MEDS: NYSTATIN POWDER 15GM BTL EXT SCH ×2 (07:49→20:14)
[2017-07-31] MEDS: MUPIROCIN 2% OINT 22 GM TUBE SCH ×2 (07:50→20:14)
[2017-07-31] MEDS: CALCIUM CARBONATE 500 MG CHEWABLE PO SCH ×2 (07:51→20:35)
[2017-07-31] MEDS: LORATADINE 10 MG TAB PO SCH ×2 (07:51→08:29)
[2017-07-31] MEDS: CEROVITE ADV FORMULA TAB PO SCH ×2 (07:51→08:30)
[2017-07-31] MEDS: DULOXETINE HCL 60 MG CAP PO SCH ×2 (07:52→08:30)
[2017-07-31] MEDS: FAMOTIDINE IV INJ 20 MG in SYRINGE 3 ML IV SCH ×2 (08:10→22:14)
[2017-07-31] MEDS: LEVOTHYROXINE SODIUM INJ 100 MCG in SYRINGE 0 ML IV SCH (09:19)
[2017-07-31] MEDS: PANTOprazole INJ 40 MG in SYRINGE 0 ML IV SCH (10:25)
[2017-07-31] MEDS: SODIUM BICARBONATE 8.4% INJ 150 MEQ in DEXTROSE 5% 1000ML 1,000 ML IV SCH ×2 (10:25→17:19)
--- NOTE | 2017-07-31 12:20 | Progress Note ---
Subjective Date of Service: Jul 31, 2017. Subjective Pt evaluation today including: conversation w/ patient, physical exam, lab review, review of studies, review of inpatient medication list Saw/examined the patient in room 220 Lethargic today; still confused, underlying dementia Refusing to take PO meds Medications Current Inpatient Medications Medications (Trade) Dose Ordered Sig/Rashid Route Start Time Stop Time Status Last Admin Dose Admin Acetaminophen (Tylenol Tab) 650 mg Q4H PRN PO 07/28/17 11:45 08/27/17 11:44 07/30/17 06:16 650 MG Ondansetron HCl (Zofran Inj) 4 mg Q6H PRN IV 07/28/17 11:45 08/27/17 11:44 Nystatin (Mycostatin Powder) 1 appln BID EXT 07/28/17 21:00 08/27/17 20:59 07/31/17 07:49 1 APPLN Atorvastatin Calcium (Lipitor Tab) 10 mg QPM PO 07/28/17 21:00 08/27/17 20:59 07/30/17 19:39 10 MG Duloxetine HCl (Cymbalta Cap) 60 mg QAM PO 07/29/17 09:00 08/28/17 08:59 07/30/17 09:00 60 MG Loratadine (Claritin Tab) 10 mg DAILY PO 07/29/17 09:00 08/28/17 08:59 07/30/17 09:00 10 MG Multivitamins/ Minerals (Multivitamin W/ Minerals Tab) 1 tab QAM PO 07/29/17 09:00 08/28/17 08:59 07/30/17 09:00 1 TAB Buspirone HCl (Buspar Tab) 10 mg TID PO 07/28/17 14:00 08/27/17 13:59 07/30/17 19:39 10 MG Calcium Carbonate (Tums Chew Tab) 500 mg BID PO 07/28/17 21:00 08/27/17 20:59 07/30/17 19:39 500 MG Enteral Nutritional Formula (Boost Breeze Nutritional Drink) 1 box HS PO 07/28/17 21:00 08/27/17 20:59 07/30/17 19:38 1 BOX Mupirocin (Bactroban 2% Oint) 1 appln BID NA 07/28/17 21:00 08/27/17 20:59 07/31/17 07:50 1 APPLN Vancomycin HCl (Vancomycin Oral Soln) 125 mg Q6H PO 07/29/17 02:00 08/11/17 23:44 07/31/17 01:24 125 MG Raspberry (Raspberry Syrup 5ml Cup) 5 ml Q6H PO 07/29/17 02:00 08/12/17 01:59 07/31/17 01:24 5 ML Metronidazole 500 mg/Prmx 100 ml @ 100 mls/hr Q8H IV 07/29/17 02:00 08/11/17 23:44 07/31/17 07:52 100 MLS/HR Morphine Sulfate (MoRPHine SULFATE INJ) 1 mg Q6 PRN IV 07/29/17 09:30 08/12/17 09:29 Pantoprazole Sodium 40 mg/ Syringe 10 ml @ 5 mls/min DAILY@11 IV 07/30/17 11:00 08/29/17 10:59 07/31/17 10:25 5 MLS/MIN Levothyroxine Sodium 100 mcg/ Syringe 5 ml @ 2 mls/min DAILY@09 IV 07/31/17 09:00 08/30/17 08:59 07/31/17 09:19 2 MLS/MIN Famotidine 20 mg/ Syringe 5 ml @ 2.5 mls/min Q12H IV 07/30/17 10:00 08/29/17 09:59 07/31/17 08:10 2.5 MLS/MIN Sodium Bicarbonate 150 meq/Dextrose 1,150 ml @ 150 mls/hr Q7H40M IV 07/31/17 10:30 08/30/17 10:29 07/31/17 10:25 150 MLS/HR Objective Vital Signs Date Time Temp Pulse Resp B/P (MAP) Pulse Ox O2 Delivery O2 Flow Rate FiO2 07/31/17 12:09 36.5 69 16 104/66 (79) 96 07/31/17 12:00 Room Air 07/31/17 08:02 36.8 96 22 108/61 (77) 95 Room Air 07/31/17 08:00 Room Air 07/31/17 04:00 95 Room Air 07/31/17 01:08 36.5 07/30/17 23:59 95 Room Air 07/30/17 23:38 37.4 96 22 93/71 (78) 92 Room Air 07/30/17 23:30 97 22 106/70 (82) 95 Room Air 07/30/17 20:28 36.4 83 18 94/56 (69) 100 Room Air 07/30/17 20:00 95 Room Air 07/30/17 16:21 95 Room Air 07/30/17 15:57 36.4 87 16 92/54 (67) 94 Room Air 07/30/17 12:53 95 Room Air Physical Exam General Appearance: no apparent distress, + pertinent finding (lethargic and tired; wakes up to verbal stimuli; disoriented) Respiratory/Chest: no respiratory distress, no accessory muscle use Neurologic/Psychiatric: + disoriented Laboratory Results Last 24 Hours Test 07/31/17 05:08 07/31/17 05:20 Stool Occult Blood NEGATIVE White Blood Count 11.34 K/uL Red Blood Count 2.44 M/uL Hemoglobin 7.7 g/dL Hematocrit 23.1 % Mean Corpuscular Volume 94.7 fL Mean Corpuscular Hemoglobin 31.6 pg Mean Corpuscular Hemoglobin Concent 33.3 g/dl RDW Standard Deviation 69.0 fL RDW Coefficient of Variation 20.8 % Platelet Count 111 K/uL Mean Platelet Volume 9.5 fL Nucleated RBC Absolute Count (auto) 0.09 K/uL Nucleated Red Blood Cells % 0.8 % Sodium Level 144 mmol/L Potassium Level 4.0 mmol/L Chloride Level 122 mmol/L Carbon Dioxide Level 12 mmol/L Anion Gap 11.0 mmol/L Blood Urea Nitrogen 22 mg/dl Creatinine 2.99 mg/dl Est Creatinine Clear Calc Drug Dose 14.4 ml/min Estimated GFR () 17.7 Estimated GFR (Non- 15.3 BUN/Creatinine Ratio 7.3 Random Glucose 97 mg/dl Calcium Level 7.8 mg/dl Assessment and Plan This is a 67 year old female with a PMH of C. 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 diff Acute Kidney Injury superimposed on CKD stage 3 Hypotension & Hyperchloremic Metabolic Acidosis secondary to Severe Dehydration/Diarrhea and Recurrent C. Diff Colitis 07/31 * consulted nephrology, appreciate the input * the bicarb remained low; now started on sodium bicarb * creatinine slightly improving * diarrhea improving; though patient is refusing PO vanco; continue IV Flagyl 07/30 * creatinine is slightly improving, though not much; so I'll increase the IVF rate to 150mL/hr * will continue IV Flagyl - patient is very agitated and refusing medications this morning - will try oral Vanco throughout the day * appreciate GI input - outpatient EGD and colonoscopy for evaluation of anemia + diarrhea 07/29 * as per records, patient was seen by gastroenterology in May 2017 due to multiple complaints; including dysphagia, nausea/vomiting/diarrhea and weight loss * plan was made for EGD to evaluate dysphagia as well as colonoscopy due to sigmoid colon wall thickening * patient was at the endoscopy suite on 07/28, but was very confused and could not consent to the procedure; she was sent to the ED for further evaluation * patient was found to have severely dehydrated; creatinine up to > 4, baseline creat is around 1.1; she is hyperchloremic, low bicarb noted; likely secondary to diarrhea * she was found positive for c. diff in the stool - started on oral Vanco and IV Flagyl, which we can continue - GI consulted for further input * patient was found to be significantly hypotensive on admission - blood pressure improving now; will continue IV fluids running at 100mL/hr for now * creatinine improved to 3.64 on 07/29; recheck CBC and BMP at 1300 and then in AM Anemia 07/30 * Hgb down to 7.6 * patient baseline is likely around the 7.2-7.3 region * holding Xarelto, but will likely restart prior to discharge as this anemia is a chronic issue 07/29 * patient with a baseline anemia, unknown cause, possibly iron deficiency * in February 2017, as per outpatient records, her Hgb had been around 7.2-.7.3, which may be her baseline * currently, her Hgb is 8.2, but with severe dehydration, that may be hemoconcentrated * will monitor Hgb and transfuse if <7 * stool occult blood pending * hold Xarelto at this time Hx. of PE/DVT * hold Xarelto, SCDs for now GERD * continue PPI and Zantac Multiple Skin Excoriations Intertrigo * wound care nurse consulted Hypothyroidism * continue Synthroid Mood Disorder * continue duloxetine and buspirone DVT ppx * SCDs FULL CODE
--- NOTE | 2017-07-31 16:37 | NEPHROLOGY CONSULTATION ---
DATE OF CONSULTATION: 07/31/2017 ATTENDING OF RECORD: Dr. Ronit Ha. REASON FOR CONSULTATION: Metabolic acidosis with acute kidney injury. HISTORY OF PRESENT ILLNESS: This is a wonderful 67-year-old female who came in with altered mental status. The patient was supposed to get an outpatient colonoscopy for diarrhea, who normally lives in a longterm and was confused and had lab work showing that the patient's creatinine was 4.1, bicarbonate of 15. magnesium level of 1.2 and albumin of 1.5. The patient has subsequently been getting IV fluids and her creatinine has improved from 4.11 down to 2.99; however, she continues to have significant acidosis with a bicarbonate of 12 on the normal saline. The patient continues to be confused, refusing meds, not eating well and GI has been consulted and feels that the diarrhea is from recurrent C. diff. Currently on oral vancomycin; however, patient has been refusing the medication. The patient over the last 24 hours has had 2 bowel movements, which appear more well-formed compared to admission. Despite the aggressive IV fluids, the patient's urine output has declined. REVIEW OF SYSTEMS: Unobtainable secondary to the patient's continued confusion. PAST MEDICAL HISTORY: CKD stage III, C. diff in the past, history of DVT, hyperlipidemia, history of heparin-induced thrombocytopenia, hypertension, hypothyroidism. PAST SURGICAL HISTORY: Ileostomy, which subsequently was reversed; history of an IVC filter; exploratory laparotomy. FAMILY HISTORY: Significant for heart disease. SOCIAL HISTORY: No smoking, no alcohol, no drugs. Lives in longterm. CURRENT MEDICATIONS: D5W with 150 mEq of sodium bicarbonate at 150 mL an hour, levothyroxine 100 mcg daily, Protonix 40 mg IV daily, Pepcid 20 mg IV q. 12, Cymbalta 60 mg daily, Claritin 10 mg daily, multivitamin daily, oral vancomycin 125 mg p.o. q. 6, raspberry 5 mL p.o. q. 6, Flagyl 500 IV q. 8, calcium carbonate 500 mg p.o. b.i.d., Lipitor 10 mg at night, Boost Breeze 1 box at night, BuSpar 10 mg p.o. t.i.d. PHYSICAL EXAMINATION: VITAL SIGNS: Temperature 36.5, pulse 69, respiratory rate 16, blood pressure 104/66, satting 96% on room air. GENERAL: Awake, alert, oriented x0. EYES: No scleral icterus. ENT: Mucous membranes are dry. NECK: Supple. PULMONARY: Clear to auscultation. CARDIAC: Regular rate and rhythm. ABDOMEN: Bowel sounds positive, soft, nontender. EXTREMITIES: No clubbing, cyanosis or edema. NEUROLOGICALLY: Confused. DERMATOLOGIC: Thin, fragile skin. LABORATORIES: Sodium level 144, potassium 4, chloride is 122, bicarbonate is 12, BUN is 22, creatinine is 2.99, glucose is 97, calcium 7.8, mag is 2.2. Procalcitonin 0.29. Hemoglobin is 8.8. INR is 1.2. UA with trace ketones, small leukocyte esterase. Stool negative for blood. C. diff positive. Blood cultures negative. ASSESSMENT AND PLAN: 1. Acute kidney injury, oliguric in the setting of significant volume depletion. The patient, in my opinion, appears prerenal. We would continue aggressive fluid resuscitation. Creatinine is improving, although we would expect more urination. No need for emergent dialysis at this time. We would continue the current IV fluids. 2. Hypocalcemia. Calcium level of 7.8; however, she has an albumin of 1.5, so calcium levels actually close to 10. We would check an ionized calcium tomorrow to follow calcium levels. Calcium level may drop in the setting of bicarbonate administration and could be dropping from the fluids we are giving, so we will continue to follow calcium levels. 3. Acidosis, likely from the diarrhea with concomitant renal failure. Hopefully, she continues to improve with fluids with bicarbonate and improvement in kidney function. Overall, the patient with prerenal acute kidney injury in the setting of acidosis likely complicated by both diarrhea and renal failure. Continue the current bicarbonate administration. Follow numbers and check an ionized calcium tomorrow to follow calcium levels as well. I appreciate consultation. YAIMA
[2017-07-31] MEDS: BOOST BREEZE NUTRITION DRINK 1 BOX PO SCH (20:14)
[2017-07-31] MEDS: ATORVASTATIN 10 MG TAB PO SCH (20:17)
[2017-08-01] VITALS (9 sets, daily range): BP systolic 76–116; BP diastolic 44–64; PULSE 90–99; TEMP 36.5–37.1; O2SAT 95–100
[2017-08-01] MEDS: METRONIDAZOLE / NSS 500 MG in PREMIXED NSS 100 ML IV SCH ×3 (01:39→19:56)
[2017-08-01] MEDS: RASPBERRY SYRUP 5 ML UDP PO SCH ×5 (01:39→20:00)
[2017-08-01] MEDS: SODIUM BICARBONATE 8.4% INJ 150 MEQ in DEXTROSE 5% 1000ML 1,000 ML IV SCH ×3 (01:39→17:10)
[2017-08-01] MEDS: VANCOMYCIN HCL 125 MG/2.5ML SOLN PO SCH ×5 (01:39→20:00)
[2017-08-01 05:38] LABS: HEMATOCRIT 21.4 % (37-47); HEMOGLOBIN 7.4 g/dL (12.0-16.0); MEAN CELL VOLUME 93.9 fL (80-100); MEAN CORPUSCULAR HEMOGLOBIN 32.5 pg (25-34); MEAN CORPUSCULAR HGB CONC 34.6 g/dl (32-36); MEAN PLATELET VOLUME 10.1 fL (7.4-10.4); NUCLEATED RED BLOOD CELL ABS 0.06 K/uL (0-0); PLATELET COUNT 113 K/uL (130-400); RED CELL DISTRIBUTION WIDTH CV 20.7 % (11.5-14.5); RED CELL DISTRIBUTION WIDTH SD 67.6 fL (36.4-46.3); WHITE BLOOD COUNT 8.88 K/uL (4.8-10.8)
[2017-08-01 06:07] LABS: CALCIUM 7.7 mg/dl (8.5-10.1); CREATININE 2.7 mg/dl (0.60-1.20); PHOSPHORUS 2.3 mg/dl (2.5-4.9); POTASSIUM 3.6 mmol/L (3.5-5.1)
[2017-08-01] MEDS ORDERED: MAGNESIUM SULFATE 1GM / D5W 1 GM in PREMIXED IN D5W 100 ML IV STA (07:39)
[2017-08-01] MEDS: NYSTATIN POWDER 15GM BTL EXT SCH ×2 (08:35→21:15)
[2017-08-01] MEDS: MUPIROCIN 2% OINT 22 GM TUBE SCH ×2 (08:36→21:00)
[2017-08-01] MEDS: LORATADINE 10 MG TAB PO SCH (08:36)
[2017-08-01] MEDS: DULOXETINE HCL 60 MG CAP PO SCH (08:36)
[2017-08-01] MEDS: CALCIUM CARBONATE 500 MG CHEWABLE PO SCH ×2 (08:37→21:15)
[2017-08-01] MEDS: LEVOTHYROXINE SODIUM INJ 100 MCG in SYRINGE 0 ML IV SCH (08:45)
[2017-08-01] MEDS: CEROVITE ADV FORMULA TAB PO SCH (08:48)
--- NOTE | 2017-08-01 11:05 | Progress Note ---
Subjective Date of Service: Aug 01, 2017. Subjective Pt evaluation today including: conversation w/ patient, physical exam, lab review, review of studies, review of inpatient medication list Saw/examined the patient in room 220 She's more awake and alert today and answering questions Feeling slightly better, denies any pain anywhere No chest pain/shortness of breath No abdominal pain As per nursing, +diarrhea improving Review of Systems Respiratory: No shortness of breath Cardiac: No chest pain Abdomen: + diarrhea, No pain, No nausea, No vomiting, No constipation, No GI bleeding Medications Current Inpatient Medications Medications (Trade) Dose Ordered Sig/Rashid Route Start Time Stop Time Status Last Admin Dose Admin Acetaminophen (Tylenol Tab) 650 mg Q4H PRN PO 07/28/17 11:45 08/27/17 11:44 07/30/17 06:16 650 MG Ondansetron HCl (Zofran Inj) 4 mg Q6H PRN IV 07/28/17 11:45 08/27/17 11:44 Nystatin (Mycostatin Powder) 1 appln BID EXT 07/28/17 21:00 08/27/17 20:59 08/01/17 08:35 1 APPLN Atorvastatin Calcium (Lipitor Tab) 10 mg QPM PO 07/28/17 21:00 08/27/17 20:59 07/31/17 20:17 10 MG Duloxetine HCl (Cymbalta Cap) 60 mg QAM PO 07/29/17 09:00 08/28/17 08:59 08/01/17 08:36 60 MG Loratadine (Claritin Tab) 10 mg DAILY PO 07/29/17 09:00 08/28/17 08:59 08/01/17 08:36 10 MG Multivitamins/ Minerals (Multivitamin W/ Minerals Tab) 1 tab QAM PO 07/29/17 09:00 08/28/17 08:59 07/30/17 09:00 1 TAB Buspirone HCl (Buspar Tab) 10 mg TID PO 07/28/17 14:00 08/27/17 13:59 08/01/17 08:36 10 MG Calcium Carbonate (Tums Chew Tab) 500 mg BID PO 07/28/17 21:00 08/27/17 20:59 08/01/17 08:37 500 MG Enteral Nutritional Formula (Boost Breeze Nutritional Drink) 1 box HS PO 07/28/17 21:00 08/27/17 20:59 07/30/17 19:38 1 BOX Mupirocin (Bactroban 2% Oint) 1 appln BID NA 07/28/17 21:00 08/27/17 20:59 08/01/17 08:36 1 APPLN Vancomycin HCl (Vancomycin Oral Soln) 125 mg Q6H PO 07/29/17 02:00 08/11/17 23:44 08/01/17 08:34 125 MG Raspberry (Raspberry Syrup 5ml Cup) 5 ml Q6H PO 07/29/17 02:00 08/12/17 01:59 08/01/17 08:34 5 ML Metronidazole 500 mg/Prmx 100 ml @ 100 mls/hr Q8H IV 07/29/17 02:00 08/11/17 23:44 08/01/17 01:39 100 MLS/HR Morphine Sulfate (MoRPHine SULFATE INJ) 1 mg Q6 PRN IV 07/29/17 09:30 08/12/17 09:29 Pantoprazole Sodium 40 mg/ Syringe 10 ml @ 5 mls/min DAILY@11 IV 07/30/17 11:00 08/29/17 10:59 07/31/17 10:25 5 MLS/MIN Levothyroxine Sodium 100 mcg/ Syringe 5 ml @ 2 mls/min DAILY@09 IV 07/31/17 09:00 08/30/17 08:59 08/01/17 08:45 2 MLS/MIN Famotidine 20 mg/ Syringe 5 ml @ 2.5 mls/min Q12H IV 07/30/17 10:00 08/29/17 09:59 07/31/17 22:14 2.5 MLS/MIN Sodium Bicarbonate 150 meq/Dextrose 1,150 ml @ 150 mls/hr Q7H40M IV 07/31/17 10:30 08/30/17 10:29 08/01/17 08:37 150 MLS/HR Objective Vital Signs Date Time Temp Pulse Resp B/P (MAP) Pulse Ox O2 Delivery O2 Flow Rate FiO2 08/01/17 08:00 Room Air 08/01/17 07:45 36.6 96 24 97/61 (73) 100 Room Air 08/01/17 04:00 Room Air 08/01/17 03:48 36.5 99 20 103/59 (74) 95 Room Air 08/01/17 00:00 Room Air 07/31/17 23:48 37.0 94 20 102/61 (75) 98 Room Air 07/31/17 20:00 Room Air 07/31/17 19:24 37.2 94 22 123/77 (92) 92 Room Air 07/31/17 16:00 Room Air 07/31/17 15:32 37.0 68 22 120/66 (84) 91 Room Air 07/31/17 12:09 36.5 69 16 104/66 (79) 96 07/31/17 12:00 Room Air Physical Exam General Appearance: no apparent distress, + obese, + pertinent finding ( underlying dementia, cognitive dysfunction) Respiratory/Chest: lungs clear, normal breath sounds, no respiratory distress, no accessory muscle use Cardiovascular: regular rate, rhythm, no edema, no murmur Extremities: normal inspection, no pedal edema Neurologic/Psychiatric: alert, + disoriented, + pertinent finding Laboratory Results Last 24 Hours Test 08/01/17 05:29 White Blood Count 8.88 K/uL Red Blood Count 2.28 M/uL Hemoglobin 7.4 g/dL Hematocrit 21.4 % Mean Corpuscular Volume 93.9 fL Mean Corpuscular Hemoglobin 32.5 pg Mean Corpuscular Hemoglobin Concent 34.6 g/dl RDW Standard Deviation 67.6 fL RDW Coefficient of Variation 20.7 % Platelet Count 113 K/uL Mean Platelet Volume 10.1 fL Nucleated RBC Absolute Count (auto) 0.06 K/uL Nucleated Red Blood Cells % 0.7 % Sodium Level 145 mmol/L Potassium Level 3.6 mmol/L Chloride Level 117 mmol/L Carbon Dioxide Level 21 mmol/L Anion Gap 7.0 mmol/L Blood Urea Nitrogen 19 mg/dl Creatinine 2.70 mg/dl Est Creatinine Clear Calc Drug Dose 17.0 ml/min Estimated GFR () 20.0 Estimated GFR (Non- 17.3 BUN/Creatinine Ratio 7.1 Random Glucose 122 mg/dl Calcium Level 7.7 mg/dl Ionized Calcium 1.17 mmol/l Phosphorus Level 2.3 mg/dl Magnesium Level 1.7 mg/dl Assessment and Plan This is a 67 year old female with a PMH of CKhadijah Denson, 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 diff Acute Kidney Injury superimposed on CKD stage 3 Hypotension & Hyperchloremic Metabolic Acidosis secondary to Severe Dehydration/Diarrhea and Recurrent C. Diff Colitis 08/01 * Improving acidosis, improving chloride levels * creatinine is also improving, but slowly, currently at 2.7; patient not outputting much, uremic * bladder scan - minimal residual urine * appreciate nephrology input; continue current fluids * transfer to med/surg 07/31 * consulted nephrology, appreciate the input * the bicarb remained low; now started on sodium bicarb * creatinine slightly improving * diarrhea improving; though patient is refusing PO vanco; continue IV Flagyl 07/30 * creatinine is slightly improving, though not much; so I'll increase the IVF rate to 150mL/hr * will continue IV Flagyl - patient is very agitated and refusing medications this morning - will try oral Vanco throughout the day * appreciate GI input - outpatient EGD and colonoscopy for evaluation of anemia + diarrhea 07/29 * as per records, patient was seen by gastroenterology in May 2017 due to multiple complaints; including dysphagia, nausea/vomiting/diarrhea and weight loss * plan was made for EGD to evaluate dysphagia as well as colonoscopy due to sigmoid colon wall thickening * patient was at the endoscopy suite on 07/28, but was very confused and could not consent to the procedure; she was sent to the ED for further evaluation * patient was found to have severely dehydrated; creatinine up to > 4, baseline creat is around 1.1; she is hyperchloremic, low bicarb noted; likely secondary to diarrhea * she was found positive for c. diff in the stool - started on oral Vanco and IV Flagyl, which we can continue - GI consulted for further input * patient was found to be significantly hypotensive on admission - blood pressure improving now; will continue IV fluids running at 100mL/hr for now * creatinine improved to 3.64 on 07/29; recheck CBC and BMP at 1300 and then in AM Anemia 08/01 * Hgb is closer to baseline around 7.4 * outpatient EGD and colonoscopy * will restart Xarelto soon 07/30 * Hgb down to 7.6 * patient baseline is likely around the 7.2-7.3 region * holding Xarelto, but will likely restart prior to discharge as this anemia is a chronic issue 07/29 * patient with a baseline anemia, unknown cause, possibly iron deficiency * in February 2017, as per outpatient records, her Hgb had been around 7.2-.7.3, which may be her baseline * currently, her Hgb is 8.2, but with severe dehydration, that may be hemoconcentrated * will monitor Hgb and transfuse if <7 * stool occult blood pending * hold Xarelto at this time Hx. of PE/DVT * hold Xarelto, SCDs for now GERD * continue PPI and Zantac Multiple Skin Excoriations Intertrigo * wound care nurse consulted Hypothyroidism * continue Synthroid Mood Disorder * continue duloxetine and buspirone DVT ppx * SCDs FULL CODE
[2017-08-01] MEDS: FAMOTIDINE IV INJ 20 MG in SYRINGE 3 ML IV SCH ×2 (11:09→21:35)
[2017-08-01] MEDS: PANTOprazole INJ 40 MG in SYRINGE 0 ML IV SCH (11:09)
[2017-08-01] MEDS: ACETAMINOPHEN 325 MG TAB PO PRN (13:40)
[2017-08-01] MEDS: BUTT PASTE 171 APPLN/57 GM JAR EXT PRN (13:51)
[2017-08-01] MEDS ORDERED: PROPRANOLOL HCL 10 MG TAB PO SCH (21:00)
[2017-08-01] MEDS: ATORVASTATIN 10 MG TAB PO SCH (21:14)
--- NOTE | 2017-08-01 21:44 | Progress Note ---
Internal Med Progress Note Date of Service: Aug 01, 2017. Provider Documentation: 08/02 11PM SBP noted to be 70-90s Patient had received p.m. dose of home Propranolol. lactic acid 2.6 IVF bolus ordered. 08/03 1 AM Patient complaining of new right hip pain as per RN. CT abdomen and pelvis initial read : Anasarca, cystitis (recommend UA), severe joint narrowing Unsuccessful attempt to obtain UA cath specimen on the floor. AP Hypotension ? Medication related ? Possible sepsis secondary to complicated UTI (hx MRSA as per records) Hold home Propranolol for now. IVF, follow lactic acid CS, IV Vanco, Cefepime for now until UA specimen obtained. Continue PO Vancomycin course for established C. difficile infection. 4 AM SBP 70s lactic acid 3.6 PCU transfer for closer monitoring. Will relay to AM provider. Attempted to update patient's family of developments over the phone. No answer. Vital Signs: Date Time Temp Pulse Resp B/P (MAP) Pulse Ox O2 Delivery O2 Flow Rate FiO2 08/02/17 06:04 36.6 85 16 98 08/02/17 05:15 36.6 86 16 79/44 (56) 94 Room Air 08/02/17 04:10 36.5 85 16 77/50 (59) 98 Room Air 08/01/17 23:30 99 Room Air 08/01/17 23:00 88/53 (65) 08/01/17 22:56 36.5 90 16 76/44 (55) 99 Room Air 08/01/17 21:22 98 104/64 (77) 08/01/17 15:15 36.6 90 18 95/57 (70) 95 Room Air 08/01/17 13:32 37.1 97 18 116/47 (70) 100 Room Air 08/01/17 13:15 Room Air 08/01/17 12:00 36.7 99 20 92/56 (68) 96 Room Air 08/01/17 12:00 Room Air 08/01/17 08:00 Room Air 08/01/17 07:45 36.6 96 24 97/61 (73) 100 Room Air Lab Results: Results Past 24 Hours Test 08/01/17 22:20 08/02/17 04:11 08/02/17 04:41 08/02/17 05:08 Range/Units Hemoglobin 7.6 12.0-16.0 g/dL Hematocrit 22.2 37-47 % Sodium Level 143 142 136-145 mmol/L Potassium Level 3.7 3.6 3.5-5.1 mmol/L Chloride Level 112 111 98-107 mmol/L Carbon Dioxide Level 22 21 21-32 mmol/L Anion Gap 9.0 10.0 3-11 mmol/L Blood Urea Nitrogen 19 19 7-18 mg/dl Creatinine 2.75 2.81 0.60-1.20 mg/dl Est Creatinine Clear Calc Drug Dose 16.7 16.4 ml/min Estimated GFR () 19.6 19.1 Estimated GFR (Non- 16.9 16.5 BUN/Creatinine Ratio 6.8 6.7 10-20 Random Glucose 115 125 70-99 mg/dl Lactic Acid Level 2.6 3.6 0.4-2.0 mmol/L Calcium Level 7.6 7.4 8.5-10.1 mg/dl Magnesium Level 1.9 1.8-2.4 mg/dl Total Bilirubin 0.7 0.6 0.2-1 mg/dl Aspartate Amino Transf (AST/SGOT) 15 17 15-37 U/L Alanine Aminotransferase (ALT/SGPT) 10 12 12-78 U/L Alkaline Phosphatase 172 188 45-117 U/L Total Protein 4.2 4.6 6.4-8.2 gm/dl Albumin 1.0 1.1 3.4-5.0 gm/dl Globulin 3.2 3.5 2.5-4.0 gm/dl Albumin/Globulin Ratio 0.3 0.3 0.9-2 Lipase 27 73-393 U/L Procalcitonin 0.30 0-0.5 ng/ml Thyroid Stimulating Hormone (TSH) 0.028 0.300-4.500 uIu/ml Test 08/02/17 05:12 Range/Units Microbiology Results 08/02/17 Blood Culture, Received Pending 08/02/17 Blood Culture, Ordered Pending
[2017-08-01] MEDS: BOOST BREEZE NUTRITION DRINK 1 BOX PO SCH (21:52)
[2017-08-01 22:28] LABS: HEMATOCRIT 22.2 % (37-47); HEMOGLOBIN 7.6 g/dL (12.0-16.0)
[2017-08-01 22:48] LABS: CALCIUM 7.6 mg/dl (8.5-10.1); CREATININE 2.75 mg/dl (0.60-1.20); POTASSIUM 3.7 mmol/L (3.5-5.1)
[2017-08-01 22:51] LABS: TOTAL PROTEIN 4.2 gm/dl (6.4-8.2)
[2017-08-01] MEDS ORDERED: LACTATED RINGER'S 1000ML 1,000 ML IV STA (23:08)
[2017-08-02] VITALS (65 sets, daily range): BP systolic 55–110; BP diastolic 29–76; PULSE 78–100; TEMP 36.2–36.8; O2SAT 91–100
[2017-08-02] MEDS ORDERED: HYDROmorphone INJ 0.5 MG/0.5 ML SYR IV PRN (01:30)
[2017-08-02] MEDS ORDERED: TRAMADOL HCL 50 MG TAB PO PRN (01:30)
[2017-08-02] MEDS: VANCOMYCIN HCL 125 MG/2.5ML SOLN PO SCH ×4 (02:29→20:00)
[2017-08-02] MEDS: RASPBERRY SYRUP 5 ML UDP PO SCH ×4 (02:29→20:00)
[2017-08-02] MEDS: METRONIDAZOLE / NSS 500 MG in PREMIXED NSS 100 ML IV SCH (02:45)
[2017-08-02] MEDS ORDERED: CEFEPIME IV 2,000 MG in DEXTROSE 5% 100ML 100 ML IV ONE (03:15)
[2017-08-02] MEDS ORDERED: VANCOMYCIN CONSULT ACTIVE PRN (03:15)
[2017-08-02] MEDS ORDERED: CEFEPIME IV 2,000 MG in SYRINGE 7.5 ML IV ONE (03:30)
[2017-08-02] MEDS ORDERED: VANCOMYCIN IV 1,500 MG in SODIUM CHLORIDE 0.9% 500ML 500 ML IV ONE (03:45)
[2017-08-02] MEDS: ALBUMIN HUMAN 25% 12.5 GM/50 ML VIAL IV ONE ×2 (04:08→04:10)
--- NOTE | 2017-08-02 04:33 | Pharmacy Progress Note ---
Pharmacy Abx Initial Consult Date of Service Aug 02, 2017. Pharmacy Dosing Scope Date of Consult: 08/02/17 Consultation requested by: Dr. Briceno Pharmacy is consulted to initiate cefepime and vancomycin IV dosing therapy, order appropriate labs and adjust drug dose/frequency. Subjective The patient is a 67 year old female admitted on Jul 28, 2017 at 11:46. Objective Height (Feet): 4 Height (Inches): 10.00 Weight (Kilograms): 75.700 Vital Signs (Past 12Hrs) Vital Signs Past 12 Hours Date Time Temp Pulse Resp B/P (MAP) Pulse Ox O2 Delivery O2 Flow Rate FiO2 08/01/17 23:30 99 Room Air 08/01/17 23:00 88/53 (65) 08/01/17 22:56 36.5 90 16 76/44 (55) 99 Room Air 08/01/17 21:22 98 104/64 (77) Lab Results (24Hrs) Laboratory Tests (24 Hours) Test 08/02/17 04:11 White Blood Count 8.11 K/uL (4.8-10.8) Red Blood Count 2.52 M/uL (4.2-5.4) L Hemoglobin 8.2 g/dL (12.0-16.0) L Hematocrit 23.3 % (37-47) L Mean Corpuscular Volume 92.5 fL (80-100) Mean Corpuscular Hemoglobin 32.5 pg (25-34) Mean Corpuscular Hemoglobin Concent 35.2 g/dl (32-36) Micro Results Date/Time Source Procedure Growth Status 08/02/17 04:11 Blood Blood Culture Pending Received 08/02/17 02:43 Blood Blood Culture Pending Ordered 07/28/17 10:13 Blood Blood Culture - Preliminary NO GROWTH TO DATE. Resulted 07/28/17 10:10 Blood Blood Culture - Preliminary NO GROWTH TO DATE. Resulted 07/28/17 16:30 Nasal MRSA DNA Surveillance Screen - Final Specimen Positive for MRSA by DNA Probe Complete 07/28/17 21:00 Stool C.difficile Toxin B Gene (PCR) - Final Positive for C. difficile toxin B gene Complete Risk Factors for Resistance * Resident in a alf or extended-care facility * Current hospitalization > 5 days * Antimicrobial use within the last 90 days (oral vancomycin, currently has recurrent C diff) Assessment & Plan Assessment 67 year old female, currently being treated with oral vancomycin for C diff, is being treated for a complicated UTI. Plan vancomycin/cefepime for treatment of complicated UTI Vancomycin IV * Loading dose: 1500 mg (22 mg/kg) * Goal trough level for UTI : ~15 mcg/mL (population pharmacokinetics suggest a half- life of > 24 hours and patient currently in prolonged FARZANEH- dose should produce a peak of 36 mcg/mL which after 24 hours should be around 16 mcg/mL) * Random level ordered for 08/03/17 * A less than traditional dose and extended dosing interval has been selected due to likelihood of drug accumulation in patient with h/o CKD. Pharmacy will continue to follow and will adjust dose/frequency as necessary. Thank you.
[2017-08-02 04:50] LABS: ALBUMIN 1.1 gm/dl (3.4-5.0); CALCIUM 7.4 mg/dl (8.5-10.1); CREATININE 2.81 mg/dl (0.60-1.20); POTASSIUM 3.6 mmol/L (3.5-5.1)
[2017-08-02] MEDS ORDERED: SODIUM CHLORIDE 0.9% 1000ML 1,000 ML IV STA (04:53)
[2017-08-02 04:59] LABS: TOTAL PROTEIN 4.6 gm/dl (6.4-8.2)
[2017-08-02] MEDS ORDERED: SODIUM CHLOR 0.45% + 20MEQ KCL 1,000 ML IV SCH (05:00)
[2017-08-02] MEDS ORDERED: PROCHLORPERAZINE INJ 5 MG in SYRINGE 4 ML IV PRN (05:15)
[2017-08-02] MEDS ORDERED: ACETAMINOPHEN 325 MG TAB PO PRN (05:15)
--- NOTE | 2017-08-02 05:59 | DIAGNOSTIC IMAGING REPORT ---
ABD/PELVIS NO IV OR ORAL CONT CT DOSE: 995.62 mGy.cm HISTORY: Pain. Anemia. R hip/flank pain TECHNIQUE: Multiaxial CT images of the abdomen and pelvis were performed without contrast. A dose lowering technique was utilized adhering to the principles of ALARA. COMPARISON STUDY: 02/16/2017 FINDINGS: Bilateral pleural effusions considered relatively small. Moderate body wall anasarca. Atrophic kidneys. No evidence for hydronephrosis. Nonobstructive bowel pattern. Mild nonobstructive ileus. Postoperative changes anterior abdominal and pelvic whitman considered stable. Collapsed bladder. Significant degenerative changes of hips bilaterally. Moderate degenerative change lumbar spine. IMPRESSION: 1. Mild nonobstructive ileus. 2. No evidence for bowel obstructive change. 3. No evidence for an obstructing urinary tract process or significant ventral hernia. 4. Interval repair of the ventral hernias previously discussed. 5. Bilateral pleural effusions with moderate body wall anasarca. The above report was generated using voice recognition software. It may contain grammatical, syntax or spelling errors. Electronically signed by: Santos Herrera M.D. 08/02/2017 5:58 AM Dictated Date/Time: 08/02/2017 5:53 AM
[2017-08-02] MEDS ORDERED: MAGNESIUM SULFATE 1GM / D5W 1 GM in PREMIXED IN D5W 100 ML IV ONE (06:00)
[2017-08-02] MEDS ORDERED: CALCIUM GLUCONATE 10% 1,000 MG in SODIUM CHLORIDE 0.9% 50ML 50 ML IV ONE (06:00)
[2017-08-02] MEDS ORDERED: LEVOTHYROXINE 200 MCG TAB PO SCH (06:00)
[2017-08-02] MEDS: SODIUM CHLOR 0.45% + 20MEQ KCL 1,000 ML IV SCH ×2 (06:34→12:58)
[2017-08-02] MEDS: CEROVITE ADV FORMULA TAB PO SCH (06:38)
[2017-08-02] MEDS: DULOXETINE HCL 60 MG CAP PO SCH (06:39)
[2017-08-02] MEDS: CALCIUM CARBONATE 500 MG CHEWABLE PO SCH ×2 (06:40→20:56)
[2017-08-02] MEDS: NYSTATIN POWDER 15GM BTL EXT SCH ×2 (06:46→21:32)
[2017-08-02 07:04] LABS: HEMATOCRIT 19.3 % (37-47); HEMOGLOBIN 6.7 g/dL (12.0-16.0); MEAN CELL VOLUME 92.3 fL (80-100); MEAN CORPUSCULAR HEMOGLOBIN 32.1 pg (25-34); MEAN CORPUSCULAR HGB CONC 34.7 g/dl (32-36); MEAN PLATELET VOLUME 9.9 fL (7.4-10.4); NUCLEATED RED BLOOD CELL ABS 0.03 K/uL (0-0); PLATELET COUNT 109 K/uL (130-400); RED CELL DISTRIBUTION WIDTH CV 20.8 % (11.5-14.5); RED CELL DISTRIBUTION WIDTH SD 66.7 fL (36.4-46.3); WHITE BLOOD COUNT 9.31 K/uL (4.8-10.8)
[2017-08-02] MEDS ORDERED: NURSING VERBAL MED ORDER ONE (07:15)
[2017-08-02] MEDS ORDERED: SODIUM CHLORIDE 0.9% 500ML 500 ML IV ONE (07:15)
[2017-08-02] MEDS ORDERED: LORATADINE 10 MG TAB PO ONE (07:15)
[2017-08-02 07:25] LABS: CALCIUM 7.3 mg/dl (8.5-10.1); CREATININE 2.67 mg/dl (0.60-1.20); POTASSIUM 3.5 mmol/L (3.5-5.1)
[2017-08-02 07:49] LABS: BASO % 0.2 %; BASO ABS # 0.02 K/uL (0-0.2); EOS % 11.8 %; IG# 0.03 K/uL (0.00-0.02); LYMPH % 27.4 %; LYMPH ABS # 2.55 K/uL (1.2-3.4); MONO % 15.5 %; MONO ABS # 1.44 K/uL (0.11-0.59); NEUT % 44.8 %; NEUT ABS # 4.17 K/uL (1.4-6.5)
--- NOTE | 2017-08-02 08:56 | Progress Note ---
Subjective Date of Service: Aug 02, 2017. Subjective Pt evaluation today including: conversation w/ patient, physical exam, lab review, review of studies, review of inpatient medication list Saw/examined the patient in room 207 Patient was transferred to [facility] from med/surg due to hypotension, confusion. She received Propanolol as per home dose, which was confirmed by [facility]. Upon transfer to tele; noted to have +lactic acidosis - was started on abx. at night. Labs were drawn and she was noted to have low blood counts During my exam in room 207, she was confused at times. Moaning at times, telling me her knees are in pain. She is agreeable to having a Johnston catheter placed, a PICC line placed as well as blood transfusion. Review of Systems Respiratory: No cough, No sputum, No wheezing, No shortness of breath, No dyspnea on exertion, No dyspnea at rest, No hemoptysis Cardiac: No chest pain Abdomen: No pain, No nausea, No vomiting, No diarrhea Musculoskeletal: + see HPI, + joint pain Medications Current Inpatient Medications Medications (Trade) Dose Ordered Sig/Rashid Route Start Time Stop Time Status Last Admin Dose Admin Nystatin (Mycostatin Powder) 1 appln BID EXT 07/28/17 21:00 08/27/17 20:59 08/02/17 06:46 1 APPLN Atorvastatin Calcium (Lipitor Tab) 10 mg QPM PO 07/28/17 21:00 08/27/17 20:59 08/01/17 21:14 10 MG Duloxetine HCl (Cymbalta Cap) 60 mg QAM PO 07/29/17 09:00 08/28/17 08:59 08/02/17 06:39 60 MG Multivitamins/ Minerals (Multivitamin W/ Minerals Tab) 1 tab QAM PO 07/29/17 09:00 08/28/17 08:59 08/02/17 06:38 1 TAB Buspirone HCl (Buspar Tab) 10 mg TID PO 07/28/17 14:00 08/27/17 13:59 08/01/17 21:14 10 MG Calcium Carbonate (Tums Chew Tab) 500 mg BID PO 07/28/17 21:00 08/27/17 20:59 08/02/17 06:40 500 MG Mupirocin (Bactroban 2% Oint) 1 appln BID NA 07/28/17 21:00 08/27/17 20:59 08/01/17 08:36 1 APPLN Vancomycin HCl (Vancomycin Oral Soln) 125 mg Q6H PO 07/29/17 02:00 08/11/17 23:44 08/02/17 06:39 125 MG Raspberry (Raspberry Syrup 5ml Cup) 5 ml Q6H PO 07/29/17 02:00 08/12/17 01:59 08/02/17 06:38 5 ML Tramadol HCl (Ultram Tab) not relieved by tyle... Q6H PRN PO 08/02/17 01:30 09/01/17 01:29 08/02/17 02:30 50 MG Hydromorphone HCl (Dilaudid Inj) 0.25 mg Q3H PRN IV 08/02/17 01:30 08/16/17 01:29 Miscellaneous Information (Consult) 1 ea UD PRN N/A 08/02/17 03:15 09/01/17 03:14 Cefepime HCl (Consult) 1 ea UD PRN N/A 08/02/17 09:00 09/01/17 08:59 Pantoprazole Sodium (Protonix Tab) 40 mg QAM PO 08/02/17 09:00 09/01/17 08:59 08/02/17 06:40 40 MG Ranitidine HCl (zANTac TAB) 150 mg DAILY PO 08/02/17 09:00 09/01/17 08:59 08/02/17 06:40 150 MG Levothyroxine Sodium (Synthroid Tab) 200 mcg DAILYBB PO 08/02/17 06:00 09/01/17 05:59 08/02/17 06:40 200 MCG Cefepime HCl 1000 mg/Syringe 11 ml @ 5.5 mls/min Q24H IV 08/03/17 04:00 08/11/17 04:01 Potassium Chloride/Sodium Chloride 1,000 ml @ 200 mls/hr Q5H IV 08/02/17 06:00 08/02/17 13:59 08/02/17 06:34 200 MLS/HR Acetaminophen (Tylenol Tab) 325 mg Q6H PRN PO 08/02/17 05:15 08/27/17 11:44 08/02/17 06:41 325 MG Prochlorperazine Edisylate 5 mg/ Syringe 5 ml @ 5 mls/min Q6H PRN IV 08/02/17 05:15 09/01/17 05:14 Loratadine (Claritin Tab) 10 mg DAILY PO 08/03/17 09:00 08/28/17 08:59 Objective Vital Signs Date Time Temp Pulse Resp B/P (MAP) Pulse Ox O2 Delivery O2 Flow Rate FiO2 08/02/17 08:02 92 21 84/48 (67) 99 08/02/17 08:01 80 22 76/39 (45) 100 08/02/17 07:31 78 24 85/42 (63) 100 08/02/17 07:01 84 17 94/46 (59) 100 08/02/17 06:45 94/36 (55) 08/02/17 06:30 84/32 (49) 08/02/17 06:15 92 22 77/38 (51) 96 08/02/17 06:04 36.6 85 16 98 08/02/17 05:15 36.6 86 16 79/44 (56) 94 Room Air 08/02/17 04:10 36.5 85 16 77/50 (59) 98 Room Air 08/01/17 23:30 99 Room Air 08/01/17 23:00 88/53 (65) 08/01/17 22:56 36.5 90 16 76/44 (55) 99 Room Air 08/01/17 21:22 98 104/64 (77) 08/01/17 15:15 36.6 90 18 95/57 (70) 95 Room Air 08/01/17 13:32 37.1 97 18 116/47 (70) 100 Room Air 08/01/17 13:15 Room Air 08/01/17 12:00 36.7 99 20 92/56 (68) 96 Room Air 08/01/17 12:00 Room Air Physical Exam Respiratory/Chest: no respiratory distress, no accessory muscle use, + decreased breath sounds Cardiovascular: regular rate, rhythm, no edema, no murmur Extremities: normal range of motion, non-tender, normal inspection, no pedal edema, no calf tenderness Neurologic/Psychiatric: alert, + motor weakness, + disoriented, + pertinent finding (awake, alert, she is intermittently confused; cannot recall some people , dates, events) Skin: + pertinent finding (diffuse erythema, excoriated skin) Laboratory Results Last 24 Hours Test 08/01/17 22:20 08/02/17 04:11 08/02/17 06:24 08/02/17 06:38 Hemoglobin 7.6 g/dL 6.7 g/dL Hematocrit 22.2 % 19.3 % Sodium Level 143 mmol/L 142 mmol/L 142 mmol/L Potassium Level 3.7 mmol/L 3.6 mmol/L 3.5 mmol/L Chloride Level 112 mmol/L 111 mmol/L 112 mmol/L Carbon Dioxide Level 22 mmol/L 21 mmol/L 20 mmol/L Anion Gap 9.0 mmol/L 10.0 mmol/L 10.0 mmol/L Blood Urea Nitrogen 19 mg/dl 19 mg/dl 19 mg/dl Creatinine 2.75 mg/dl 2.81 mg/dl 2.67 mg/dl Est Creatinine Clear Calc Drug Dose 16.7 ml/min 16.4 ml/min 17.2 ml/min Estimated GFR () 19.6 19.1 20.3 Estimated GFR (Non- 16.9 16.5 17.5 BUN/Creatinine Ratio 6.8 6.7 7.2 Random Glucose 115 mg/dl 125 mg/dl 104 mg/dl Lactic Acid Level 2.6 mmol/L 3.6 mmol/L 2.5 mmol/L Calcium Level 7.6 mg/dl 7.4 mg/dl 7.3 mg/dl Magnesium Level 1.9 mg/dl Total Bilirubin 0.7 mg/dl 0.6 mg/dl Aspartate Amino Transf (AST/SGOT) 15 U/L 17 U/L Alanine Aminotransferase (ALT/SGPT) 10 U/L 12 U/L Alkaline Phosphatase 172 U/L 188 U/L Total Protein 4.2 gm/dl 4.6 gm/dl Albumin 1.0 gm/dl 1.1 gm/dl Globulin 3.2 gm/dl 3.5 gm/dl Albumin/Globulin Ratio 0.3 0.3 Lipase 27 U/L Procalcitonin 0.30 ng/ml Thyroid Stimulating Hormone (TSH) 0.028 uIu/ml White Blood Count 9.31 K/uL Red Blood Count 2.09 M/uL Mean Corpuscular Volume 92.3 fL Mean Corpuscular Hemoglobin 32.1 pg Mean Corpuscular Hemoglobin Concent 34.7 g/dl Platelet Count 109 K/uL Mean Platelet Volume 9.9 fL Neutrophils (%) (Auto) 44.8 % Lymphocytes (%) (Auto) 27.4 % Monocytes (%) (Auto) 15.5 % Eosinophils (%) (Auto) 11.8 % Basophils (%) (Auto) 0.2 % Neutrophils # (Auto) 4.17 K/uL Lymphocytes # (Auto) 2.55 K/uL Monocytes # (Auto) 1.44 K/uL Eosinophils # (Auto) 1.10 K/uL Basophils # (Auto) 0.02 K/uL RDW Standard Deviation 66.7 fL RDW Coefficient of Variation 20.8 % Immature Granulocyte % (Auto) 0.3 % Immature Granulocyte # (Auto) 0.03 K/uL Nucleated RBC Absolute Count (auto) 0.03 K/uL Nucleated Red Blood Cells % 0.3 % Toxic Vacuolation 1+ Giant Platelets 1+ Hypochromasia PRESENT Anisocytosis PRESENT Pappenheimer Bodies 1+ Target Cells 2+ Troponin I < 0.015 ng/ml Test 08/02/17 07:29 Ammonia 14.7 umol/L Assessment and Plan This is a 67 year old female with a PMH of C. 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 diff Acute Kidney Injury superimposed on CKD stage 3 Hypotension & Hyperchloremic Metabolic Acidosis + Lactic Acidosis secondary to Severe Dehydration/Diarrhea and Recurrent C. Diff Colitis 08/02 * hypotension worsened last evening; SBP in the 70s/80s * Propranolol was stopped and likely will need to be discontinued in the outpatient setting * she has been given multiple fluid boluses, MAP now >65 * will continue to give fluid resuscitation as needed, monitor in tele * further fluid management as per nephrology * will continue PO Vanco for her C. diff - diarrhea seems to be slowing down * acidosis and hyperchloremia seem to be resolving * monitor lactic acidosis, will recheck lactic acid in the afternoon 08/01 * Improving acidosis, improving chloride levels * creatinine is also improving, but slowly, currently at 2.7; patient not outputting much, uremic * bladder scan - minimal residual urine * appreciate nephrology input; continue current fluids * transfer to med/surg 07/31 * consulted nephrology, appreciate the input * the bicarb remained low; now started on sodium bicarb * creatinine slightly improving * diarrhea improving; though patient is refusing PO vanco; continue IV Flagyl 07/30 * creatinine is slightly improving, though not much; so I'll increase the IVF rate to 150mL/hr * will continue IV Flagyl - patient is very agitated and refusing medications this morning - will try oral Vanco throughout the day * appreciate GI input - outpatient EGD and colonoscopy for evaluation of anemia + diarrhea 07/29 * as per records, patient was seen by gastroenterology in May 2017 due to multiple complaints; including dysphagia, nausea/vomiting/diarrhea and weight loss * plan was made for EGD to evaluate dysphagia as well as colonoscopy due to sigmoid colon wall thickening * patient was at the endoscopy suite on 07/28, but was very confused and could not consent to the procedure; she was sent to the ED for further evaluation * patient was found to have severely dehydrated; creatinine up to > 4, baseline creat is around 1.1; she is hyperchloremic, low bicarb noted; likely secondary to diarrhea * she was found positive for c. diff in the stool - started on oral Vanco and IV Flagyl, which we can continue - GI consulted for further input * patient was found to be significantly hypotensive on admission - blood pressure improving now; will continue IV fluids running at 100mL/hr for now * creatinine improved to 3.64 on 07/29; recheck CBC and BMP at 1300 and then in AM Anemia 08/02 * hold Xarelto, she did not receive a dose of this yet * Hgb down to 6.7; will transfuse one unit pRBCs * recheck H/H four hours post-transfusion 08/01 * Hgb is closer to baseline around 7.4 * outpatient EGD and colonoscopy * will restart Xarelto soon 07/30 * Hgb down to 7.6 * patient baseline is likely around the 7.2-7.3 region * holding Xarelto, but will likely restart prior to discharge as this anemia is a chronic issue 07/29 * patient with a baseline anemia, unknown cause, possibly iron deficiency * in February 2017, as per outpatient records, her Hgb had been around 7.2-.7.3, which may be her baseline * currently, her Hgb is 8.2, but with severe dehydration, that may be hemoconcentrated * will monitor Hgb and transfuse if <7 * stool occult blood pending * hold Xarelto at this time Hx. of PE/DVT * hold Xarelto, SCDs for now GERD * continue PPI and Zantac Multiple Skin Excoriations Intertrigo * wound care nurse consulted Hypothyroidism * continue Synthroid Mood Disorder * continue duloxetine and buspirone DVT ppx * SCDs FULL CODE
[2017-08-02 08:59] LABS: THYROXINE (T4) 3.1 mcg/dl (4.5-10.9)
[2017-08-02] MEDS ORDERED: PANTOprazole SOD 40 MG TAB PO SCH (09:00)
[2017-08-02] MEDS: MUPIROCIN 2% OINT 22 GM TUBE SCH ×2 (09:00→21:00)
[2017-08-02] MEDS ORDERED: RANITIDINE HCL 150 MG TAB PO SCH (09:00)
[2017-08-02] MEDS ORDERED: CEFEPIME CONSULT ACTIVE PRN (09:00)
--- NOTE | 2017-08-02 15:28 | Critical Care Consultation ---
Critical Care Consultation Date of Consultation: Aug 02, 2017. Attending Physician: Ronit Ha DO Reason for Consultation: Hypotension and Global Decline History of Present Illness She was admitted to the hospital with c.diff and renal failure. Her performance level has been very poor. Has been cared for in a SNF since hospitalizations for cellulitis, DVT, and SBO. History abdominal surgery reviewed. Over the past 6 months cognitive status has been on the rapid decline as well. Antibiotics and fluids provided but given her poor nutritional status and underlying renal status she has only developed worsening generalized edema and performance. Delirium probably multifactorial has only worsened. A blood transfusion has been utilized AM today to assist with intravascular volume expansion. On my evaluation I find her extremely edematous and confused. Given her renal performance, anemia and very low albumin her situation is extremely poor and ability to withstand any surgery or more aggressive interventions very unlikely. I spoke with Dr. Ha regarding her care plan. Family has been contacted and level of aggressive measures discussed. Past Medical/Surgical History --DVT--IVC filter--was on Xa --Renal Failure --C.diff --Anemia --Multiple Abdominal Surgeries--Extensive hx from last Feb. --Performed in [place] --Confusional State--requires NF care. Family History Heart disease FATHER (fatal [place] at age 60) Social History Living in nursing facility Smoking Status: Never Smoker Alcohol Use: none [facility] Allergies Coded Allergies: Heparin (Verified Allergy, Unknown, UNKNOWN, 07/28/17) Meperidine (Verified Allergy, Unknown, unknown, 07/28/17) Home Medications Scheduled Atorvastatin (Lipitor), 10 MG PO QPM Bumetanide (Bumex), 2 MG PO QAM Buspirone Hcl (Buspirone Hcl), 10 MG PO TID Calcium Carbonate (Antacid) (Calcium Carbonate Extra S), 750 MG PO BID Cefuroxime Axetil (Ceftin), 250 MG PO TID Doxepin Hcl (Sleep) (Silenor), 3 MG PO HS Duloxetine HCl (Cymbalta), 60 MG PO QAM Ergocalciferol (Vitamin D 28190 Unit), 50,000 UNIT PO WK Fluticasone Propionate (Nasal) (Flonase Allergy Relief), 1 SPRAY CLEMENCIA DAILY Levothyroxine Sodium (Synthroid), 200 MCG PO DAILY Loratadine (Claritin), 10 MG PO DAILY Multivitamins/Minerals (Mvi With Minerals), 1 TAB PO QAM Nutritional Supplements (Nutritional Drink), 1 BTL PO HS Pantoprazole (Protonix), 40 MG PO QAM Potassium Chloride (Micro-K Ext Rel), 10 MEQ PO 5X DAY Propranolol (Inderal), 10 MG PO BID Ranitidine (Zantac), 150 MG PO BID Rivaroxaban (Xarelto), 20 MG PO DAILY Scheduled PRN Acetaminophen (Tylenol Arthritis Ext Rel), 650 MG PO Q8H PRN for PRN Loratadine (Claritin), 10 MG PO DAILY PRN for PRN Ondansetron Hcl (Zofran), 4 MG PO Q6H PRN for Nausea Current Inpatient Medications Current Inpatient Medications Medications (Trade) Dose Ordered Sig/Rashid Route Start Time Stop Time Status Last Admin Dose Admin Nystatin (Mycostatin Powder) 1 appln BID EXT 07/28/17 21:00 08/27/17 20:59 08/02/17 06:46 1 APPLN Atorvastatin Calcium (Lipitor Tab) 10 mg QPM PO 07/28/17 21:00 08/27/17 20:59 08/01/17 21:14 10 MG Duloxetine HCl (Cymbalta Cap) 60 mg QAM PO 07/29/17 09:00 08/28/17 08:59 08/02/17 06:39 60 MG Multivitamins/ Minerals (Multivitamin W/ Minerals Tab) 1 tab QAM PO 07/29/17 09:00 08/28/17 08:59 08/02/17 06:38 1 TAB Buspirone HCl (Buspar Tab) 10 mg TID PO 07/28/17 14:00 08/27/17 13:59 08/01/17 21:14 10 MG Calcium Carbonate (Tums Chew Tab) 500 mg BID PO 07/28/17 21:00 08/27/17 20:59 08/02/17 06:40 500 MG Mupirocin (Bactroban 2% Oint) 1 appln BID NA 07/28/17 21:00 08/27/17 20:59 08/01/17 08:36 1 APPLN Vancomycin HCl (Vancomycin Oral Soln) 125 mg Q6H PO 07/29/17 02:00 08/11/17 23:44 08/02/17 06:39 125 MG Raspberry (Raspberry Syrup 5ml Cup) 5 ml Q6H PO 07/29/17 02:00 08/12/17 01:59 08/02/17 06:38 5 ML Tramadol HCl (Ultram Tab) not relieved by tyle... Q6H PRN PO 08/02/17 01:30 09/01/17 01:29 08/02/17 02:30 50 MG Hydromorphone HCl (Dilaudid Inj) 0.25 mg Q3H PRN IV 08/02/17 01:30 08/16/17 01:29 08/02/17 09:29 0.25 MG Miscellaneous Information (Consult) 1 ea UD PRN N/A 08/02/17 03:15 09/01/17 03:14 Cefepime HCl (Consult) 1 ea UD PRN N/A 08/02/17 09:00 09/01/17 08:59 Pantoprazole Sodium (Protonix Tab) 40 mg QAM PO 08/02/17 09:00 09/01/17 08:59 08/02/17 06:40 40 MG Ranitidine HCl (zANTac TAB) 150 mg DAILY PO 08/02/17 09:00 09/01/17 08:59 08/02/17 06:40 150 MG Levothyroxine Sodium (Synthroid Tab) 200 mcg DAILYBB PO 08/02/17 06:00 09/01/17 05:59 08/02/17 06:40 200 MCG Cefepime HCl 1000 mg/Syringe 11 ml @ 5.5 mls/min Q24H IV 08/03/17 04:00 08/11/17 04:01 Acetaminophen (Tylenol Tab) 325 mg Q6H PRN PO 08/02/17 05:15 08/27/17 11:44 08/02/17 06:41 325 MG Prochlorperazine Edisylate 5 mg/ Syringe 5 ml @ 5 mls/min Q6H PRN IV 08/02/17 05:15 09/01/17 05:14 Loratadine (Claritin Tab) 10 mg DAILY PO 08/03/17 09:00 08/28/17 08:59 Review of Systems ROS was quit limited given her current cognitive status. She is verbal and answers questions, but insight and details are not possible. Physical Exam Date Time Temp Pulse Resp B/P (MAP) Pulse Ox O2 Delivery O2 Flow Rate FiO2 08/02/17 13:23 36.2 99 20 89/53 100 08/02/17 12:00 100 Room Air 08/02/17 11:40 36.8 88 18 100/61 (74) 97 08/02/17 11:31 88 16 88/58 (69) 98 08/02/17 11:03 92 17 100/61 (89) 97 08/02/17 11:01 87 19 79/57 (69) 91 08/02/17 10:01 85 20 89/52 (68) 96 08/02/17 09:32 91 20 110/62 (84) 96 08/02/17 09:29 110/62 (78) 08/02/17 09:28 83 24 93/64 (71) 98 08/02/17 09:01 80 18 88/49 (61) 99 08/02/17 08:02 92 21 84/48 (67) 99 08/02/17 08:01 80 22 76/39 (45) 100 08/02/17 08:00 99 Room Air 08/02/17 08:00 100 Room Air 08/02/17 07:31 78 24 85/42 (63) 100 08/02/17 07:01 84 17 94/46 (59) 100 08/02/17 06:45 94/36 (55) 08/02/17 06:30 84/32 (49) 08/02/17 06:15 92 22 77/38 (51) 96 08/02/17 06:04 36.6 85 16 98 08/02/17 05:15 36.6 86 16 79/44 (56) 94 Room Air 08/02/17 04:10 36.5 85 16 77/50 (59) 98 Room Air 08/01/17 23:30 99 Room Air 08/01/17 23:00 88/53 (65) 08/01/17 22:56 36.5 90 16 76/44 (55) 99 Room Air 08/01/17 21:22 98 104/64 (77) Gen--very frail and with diffuse anasarca HEENT--no focal issues Respiratory--exchange is fair--diminished in the bases Cardio--rate is ok--systolic with manual measurement 80mmHg GI--active--mild tenderness Neuro--no focal issues Musculo--no acute findings Psych--delirious Laboratory Results Last 24 Hours Test 08/01/17 22:20 08/02/17 04:11 08/02/17 06:24 08/02/17 06:38 Hemoglobin 7.6 g/dL 6.7 g/dL Hematocrit 22.2 % 19.3 % Sodium Level 143 mmol/L 142 mmol/L 142 mmol/L Potassium Level 3.7 mmol/L 3.6 mmol/L 3.5 mmol/L Chloride Level 112 mmol/L 111 mmol/L 112 mmol/L Carbon Dioxide Level 22 mmol/L 21 mmol/L 20 mmol/L Anion Gap 9.0 mmol/L 10.0 mmol/L 10.0 mmol/L Blood Urea Nitrogen 19 mg/dl 19 mg/dl 19 mg/dl Creatinine 2.75 mg/dl 2.81 mg/dl 2.67 mg/dl Est Creatinine Clear Calc Drug Dose 16.7 ml/min 16.4 ml/min 17.2 ml/min Estimated GFR () 19.6 19.1 20.3 Estimated GFR (Non- 16.9 16.5 17.5 BUN/Creatinine Ratio 6.8 6.7 7.2 Random Glucose 115 mg/dl 125 mg/dl 104 mg/dl Lactic Acid Level 2.6 mmol/L 3.6 mmol/L 2.5 mmol/L Calcium Level 7.6 mg/dl 7.4 mg/dl 7.3 mg/dl Magnesium Level 1.9 mg/dl Total Bilirubin 0.7 mg/dl 0.6 mg/dl Aspartate Amino Transf (AST/SGOT) 15 U/L 17 U/L Alanine Aminotransferase (ALT/SGPT) 10 U/L 12 U/L Alkaline Phosphatase 172 U/L 188 U/L Total Protein 4.2 gm/dl 4.6 gm/dl Albumin 1.0 gm/dl 1.1 gm/dl Globulin 3.2 gm/dl 3.5 gm/dl Albumin/Globulin Ratio 0.3 0.3 Lipase 27 U/L Procalcitonin 0.30 ng/ml Thyroid Stimulating Hormone (TSH) 0.028 uIu/ml White Blood Count 9.31 K/uL Red Blood Count 2.09 M/uL Mean Corpuscular Volume 92.3 fL Mean Corpuscular Hemoglobin 32.1 pg Mean Corpuscular Hemoglobin Concent 34.7 g/dl Platelet Count 109 K/uL Mean Platelet Volume 9.9 fL Neutrophils (%) (Auto) 44.8 % Lymphocytes (%) (Auto) 27.4 % Monocytes (%) (Auto) 15.5 % Eosinophils (%) (Auto) 11.8 % Basophils (%) (Auto) 0.2 % Neutrophils # (Auto) 4.17 K/uL Lymphocytes # (Auto) 2.55 K/uL Monocytes # (Auto) 1.44 K/uL Eosinophils # (Auto) 1.10 K/uL Basophils # (Auto) 0.02 K/uL RDW Standard Deviation 66.7 fL RDW Coefficient of Variation 20.8 % Immature Granulocyte % (Auto) 0.3 % Immature Granulocyte # (Auto) 0.03 K/uL Nucleated RBC Absolute Count (auto) 0.03 K/uL Nucleated Red Blood Cells % 0.3 % Toxic Vacuolation 1+ Giant Platelets 1+ Hypochromasia PRESENT Anisocytosis PRESENT Pappenheimer Bodies 1+ Target Cells 2+ Troponin I < 0.015 ng/ml Thyroxine (T4) 3.1 mcg/dl Total Triiodothyronine 0.42 ng/ml Test 08/02/17 07:29 08/02/17 14:00 Ammonia 14.7 umol/L Diagnostic Results reviewed all labs and records Assessment & Plan 67 year old with hx of abdominal surgery, renal dysfunction, c.diff, anemia, and global cognitive and functional decline. The global performance decline has been noted for many months now. She is now requiring NF care. Given her performance and nutritional state (in the setting of the renal failure) her prognosis is very poor. I agree with the blood for intravascular volume expansion. Treatment for her c.diff is in place. Renal performance noted. Albumin now at only 1.1. Given the last 6-9 months events and her deterioration over that period of time, her chances for recovery extremely poor. She wound not survive ACLS measures should that be instituted. I recommend discussion with her healthcare surrogate and direct care in a more conservative and comfort oriented manner.
--- NOTE | 2017-08-02 16:38 | Progress Note ---
Progress Note Date of Service Aug 02, 2017. Progress Note Spoke with Rupert Rodgers (brother) and Silvia Rodgers ([id number]) in-depth about the patient's condition. I let them know about her hypotensive episodes, her significant anemia, kidney injury, third spacing, etc. We discussed resuscitation status and are in agreement that we should not attempt cardio-pulmonary resuscitation; they do not want her intubated either. In the meantime, they stated that we try bringing up the blood pressure as we can without pressors. If no improvement in the next day or so, they would likely agree with palliative care measures. They will try to come in to see the patient today (08/02). I gave them my cell phone number if they need to contact me. Code status changed into the computer. Second unit of pRBCs ordered; will restart IVF resuscitation after this unit. Currently nearly anuric, not producing much urine.
[2017-08-02] MEDS ORDERED: RIVAROXABAN 10 MG TAB PO SCH (16:45)
[2017-08-02] MEDS: D5W NORMOSOL-R 1,000 ML IV SCH (18:11)
[2017-08-02 19:18] LABS: HEMATOCRIT 30.3 % (37-47); HEMOGLOBIN 10.1 g/dL (12.0-16.0)
[2017-08-02 19:36] LABS: CALCIUM 7.7 mg/dl (8.5-10.1); CREATININE 2.76 mg/dl (0.60-1.20); POTASSIUM 3.8 mmol/L (3.5-5.1)
[2017-08-02] MEDS: ATORVASTATIN 10 MG TAB PO SCH (20:56)
[2017-08-02] MEDS ORDERED: ALBUMIN HUMAN 25% 12.5 GM/50 ML VIAL IV ONE (22:45)
[2017-08-02 23:02] LABS: HEMATOCRIT 27.8 % (37-47); HEMOGLOBIN 9.4 g/dL (12.0-16.0)
[2017-08-02 23:22] LABS: ALBUMIN 1.3 gm/dl (3.4-5.0); CALCIUM 7.4 mg/dl (8.5-10.1); CREATININE 2.8 mg/dl (0.60-1.20); POTASSIUM 3.8 mmol/L (3.5-5.1)
[2017-08-02 23:25] LABS: TOTAL PROTEIN 4.1 gm/dl (6.4-8.2)
--- NOTE | 2017-08-02 23:36 | Progress Note ---
Internal Med Progress Note Date of Service: Aug 02, 2017. Provider Documentation: Made aware by RN of SBP 70s. Normosol IV fluid running. Patient noted to be very edematous.. Patient family updated over the phone. Comfort measures to be initiated for patient if hypotension recurs after IV albumin bolus. Vital Signs: Date Time Temp Pulse Resp B/P (MAP) Pulse Ox O2 Delivery O2 Flow Rate FiO2 08/03/17 01:30 83 19 83/40 08/03/17 01:15 83 15 08/03/17 01:00 80 19 08/03/17 00:45 81 19 08/03/17 00:30 90 20 08/03/17 00:15 84 20 08/03/17 00:00 82 19 100 08/03/17 00:00 80 20 94/56 (69) 100 08/03/17 00:00 Room Air 08/02/17 23:09 87 12 95/54 (64) 100 08/02/17 23:00 86 15 100 08/02/17 22:57 89 18 85/54 (63) 100 08/02/17 22:51 88 22 100 08/02/17 22:45 93 31 99 08/02/17 22:30 86 18 96 08/02/17 22:27 85 18 56/45 (49) 100 08/02/17 22:15 85 18 100 08/02/17 22:00 89 20 100 08/02/17 22:00 88 14 99 08/02/17 21:30 89 20 100 08/02/17 21:25 90 16 90/71 (76) 100 08/02/17 21:15 84 21 100 08/02/17 21:01 85 22 96/44 (56) 100 08/02/17 21:00 80 16 99 08/02/17 20:30 88 18 100 08/02/17 20:02 88 17 102/60 (81) 100 08/02/17 20:00 Room Air 08/02/17 20:00 86 18 98 08/02/17 20:00 36.5 100 20 102/60 (74) 100 08/02/17 19:30 89 19 100 08/02/17 19:20 95 17 107/76 (92) 100 08/02/17 19:19 97 18 /43 (65) 100 3/17/18 19:05 85 16 92/48 (53) 100 08/02/17 19:02 86 18 95/59 (69) 100 08/02/17 19:00 91 16 98 18 17:46 92 16 78/47 (59) 97 18 17:31 36.6 93 17 68/51 (61) 98 08/02/17 17:16 88 19 69/56 (62) 98 08/02/17 17:01 89 21 106/51 (64) 98 18 16:31 87 27 76/49 (58) 97 08/02/17 16:16 87 21 97/48 (58) 100 08/02/17 16:01 86 16 94/45 (76) 100 08/02/17 16:01 86 16 94/45 (76) 100 08/02/17 16:00 87 25 99 08/02/17 16:00 100 Room Air 08/02/17 15:46 86 19 81/51 (62) 100 08/02/17 15:39 36.8 88 18 90/46 100 08/02/17 15:39 36.7 89 21 90/46 (55) 100 08/02/17 15:01 87 23 59/53 (58) 100 08/02/17 15:00 86 19 100 08/02/17 14:51 87 17 87/49 (77) 97 08/02/17 14:46 88 18 61/38 (45) 100 08/02/17 14:45 87 17 77/51 (59) 100 08/02/17 14:33 87 19 66/45 (47) 100 08/02/17 14:01 87 28 71/29 (47) 100 08/02/17 13:59 36.4 88 26 55/37 (45) 98 08/02/17 13:31 87 18 103/47 (70) 100 08/02/17 13:27 89 21 89/53 (67) 100 08/02/17 13:23 36.2 99 20 89/53 100 08/02/17 12:00 100 Room Air 08/02/17 11:40 36.8 88 18 100/61 (74) 97 08/02/17 11:31 88 16 88/58 (69) 98 08/02/17 11:03 92 17 100/61 (89) 97 08/02/17 11:01 87 19 79/57 (59) 91 Lab Results: Results Past 24 Hours Test 08/02/17 19:06 08/02/17 19:07 08/02/17 22:26 Range/Units Lactic Acid Level 1.8 2.8 0.4-2.0 mmol/L Hemoglobin 10.1 9.4 12.0-16.0 g/dL Hematocrit 30.3 27.8 37-47 % Sodium Level 141 142 136-145 mmol/L Potassium Level 3.8 3.8 3.5-5.1 mmol/L Chloride Level 113 113 98-107 mmol/L Carbon Dioxide Level 21 21 21-32 mmol/L Anion Gap 7.0 8.0 3-11 mmol/L Blood Urea Nitrogen 19 19 7-18 mg/dl Creatinine 2.76 2.80 0.60-1.20 mg/dl Est Creatinine Clear Calc Drug Dose 16.6 16.4 ml/min Estimated GFR () 19.5 19.2 Estimated GFR (Non- 16.8 16.5 BUN/Creatinine Ratio 6.8 6.6 10-20 Random Glucose 126 131 70-99 mg/dl Calcium Level 7.7 7.4 8.5-10.1 mg/dl Total Bilirubin 1.0 0.2-1 mg/dl Aspartate Amino Transf (AST/SGOT) 17 15-37 U/L Alanine Aminotransferase (ALT/SGPT) 9 12-78 U/L Alkaline Phosphatase 155 45-117 U/L Total Protein 4.1 6.4-8.2 gm/dl Albumin 1.3 3.4-5.0 gm/dl Globulin 2.8 2.5-4.0 gm/dl Albumin/Globulin Ratio 0.5 0.9-2
[2017-08-03] VITALS (7 sets, daily range): BP systolic 83–94; BP diastolic 40–56; PULSE 80–90; O2SAT 100
[2017-08-03] MEDS: D5W NORMOSOL-R 1,000 ML IV SCH (00:33)
[2017-08-03] MEDS: RASPBERRY SYRUP 5 ML UDP PO SCH (01:55)
[2017-08-03] MEDS: VANCOMYCIN HCL 125 MG/2.5ML SOLN PO SCH (01:55)
[2017-08-03] MEDS ORDERED: LORAZEPAM INJ 1 MG in SYRINGE 0.5 ML IV PRN (02:15)
[2017-08-03] MEDS ORDERED: LORAZEPAM 2 MG/ML 1 ML VIAL IV PRN (02:15)
[2017-08-03] MEDS: MoRPHine SULFATE 4 MG/ML 1 ML CARP\\VIAL IV PRN ×3 (03:05→08:07)
[2017-08-03] MEDS ORDERED: CEFEPIME IV 1,000 MG in SYRINGE 0 ML IV SCH (04:00)
[2017-08-03] MEDS ORDERED: LORATADINE 10 MG TAB PO SCH (09:00)
[2017-08-03] MEDS ORDERED: FENTANYL 25 MCG/HR TDSY TD SCH (09:15)
[2017-08-03] MEDS ORDERED: MoRPHine SULF/NSS 250MG/250ML 250 ML IV PRN (09:15)
[2017-08-03] MEDS ORDERED: SCOPOLAMINE 1.5 MG TDSY TD SCH (09:15)
[2017-08-03] MEDS ORDERED: MoRPHine SULFATE 4 MG/ML 1 ML CARP\\VIAL IV PRN (09:15)
--- NOTE | 2017-08-03 10:03 | Progress Note ---
Progress Note Date of Service Aug 03, 2017. Progress Note This is a 67 year old female with a PMH of C. 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 diff Comfort Measures Only 08/03 * last evening, hypotensive episodes persisted * research geneticist spoke with the brother again - and it was decided that patient should be comfort measures only * I saw the patient this morning, nonverbal, she is moaning throughout my exam * skin covered in blistering wounds; bruises - presented this way from [facility] * morphine does not seem to be working * Fentanyl 25mcg patch added * Morphine ggt started at 3mg/hr * morphine 3mg q15mg for breakthrough * scopolamine patch added * Ativan PRN Acute Kidney Injury superimposed on CKD stage 3 Hypotension & Hyperchloremic Metabolic Acidosis + Lactic Acidosis secondary to Severe Dehydration/Diarrhea and Recurrent C. Diff Colitis 08/02 * hypotension worsened last evening; SBP in the 70s/80s * Propranolol was stopped and likely will need to be discontinued in the outpatient setting * she has been given multiple fluid boluses, MAP now >65 * will continue to give fluid resuscitation as needed, monitor in tele * further fluid management as per nephrology * will continue PO Vanco for her C. diff - diarrhea seems to be slowing down * acidosis and hyperchloremia seem to be resolving * monitor lactic acidosis, will recheck lactic acid in the afternoon 08/01 * Improving acidosis, improving chloride levels * creatinine is also improving, but slowly, currently at 2.7; patient not outputting much, uremic * bladder scan - minimal residual urine * appreciate nephrology input; continue current fluids * transfer to med/surg 07/31 * consulted nephrology, appreciate the input * the bicarb remained low; now started on sodium bicarb * creatinine slightly improving * diarrhea improving; though patient is refusing PO vanco; continue IV Flagyl 07/30 * creatinine is slightly improving, though not much; so I'll increase the IVF rate to 150mL/hr * will continue IV Flagyl - patient is very agitated and refusing medications this morning - will try oral Vanco throughout the day * appreciate GI input - outpatient EGD and colonoscopy for evaluation of anemia + diarrhea 07/29 * as per records, patient was seen by gastroenterology in May 2017 due to multiple complaints; including dysphagia, nausea/vomiting/diarrhea and weight loss * plan was made for EGD to evaluate dysphagia as well as colonoscopy due to sigmoid colon wall thickening * patient was at the endoscopy suite on 07/28, but was very confused and could not consent to the procedure; she was sent to the ED for further evaluation * patient was found to have severely dehydrated; creatinine up to > 4, baseline creat is around 1.1; she is hyperchloremic, low bicarb noted; likely secondary to diarrhea * she was found positive for c. diff in the stool - started on oral Vanco and IV Flagyl, which we can continue - GI consulted for further input * patient was found to be significantly hypotensive on admission - blood pressure improving now; will continue IV fluids running at 100mL/hr for now * creatinine improved to 3.64 on 07/29; recheck CBC and BMP at 1300 and then in AM Anemia 08/02 * hold Xarelto, she did not receive a dose of this yet * Hgb down to 6.7; will transfuse one unit pRBCs * recheck H/H four hours post-transfusion 08/01 * Hgb is closer to baseline around 7.4 * outpatient EGD and colonoscopy * will restart Xarelto soon 07/30 * Hgb down to 7.6 * patient baseline is likely around the 7.2-7.3 region * holding Xarelto, but will likely restart prior to discharge as this anemia is a chronic issue 07/29 * patient with a baseline anemia, unknown cause, possibly iron deficiency * in February 2017, as per outpatient records, her Hgb had been around 7.2-.7.3, which may be her baseline * currently, her Hgb is 8.2, but with severe dehydration, that may be hemoconcentrated * will monitor Hgb and transfuse if <7 * stool occult blood pending * hold Xarelto at this time Hx. of PE/DVT * hold Xarelto, SCDs for now GERD * continue PPI and Zantac Multiple Skin Excoriations Intertrigo * wound care nurse consulted Hypothyroidism * continue Synthroid Mood Disorder * continue duloxetine and buspirone DVT ppx * SCDs FULL CODE
[2017-08-03] MEDS ORDERED: NURSING DECISION MEDICATION ORDER SCH ×2 (10:35→12:45)
[2017-08-03] MEDS: CHECK FENTANYL PATCH PLACEMENT SCH ×2 (15:59→23:55)
[2017-08-03] MEDS: CHECK SCOPOLAMINE PATCH PLACEMENT SCH ×2 (16:00→23:55)
[2017-08-04] MEDS ORDERED: NURSING VERBAL MED ORDER ONE (01:45)
--- NOTE | 2017-08-04 08:36 | Discharge Summary ---
Discharge Summary Date of Service Aug 04, 2017. Discharge Summary Admission Date: Jul 28, 2017 at 11:46 Discharge Date: Aug 04, 2017 Discharge Disposition: Principal Diagnosis: Recurrent C. Diff Colitis/Diarrhea Severe Dehydration Hypotension Lactic Acidosis Hyperchloremic Metabolic Acidosis Multifactorial Anemia Admission Information HPI (per Admitting provider): 67-year-old female who was sent to the ER from the endoscopy department for evaluation of altered mental status. Patient presented to the GI lab today for outpatient planned colonoscopy for evaluation of diarrhea. Upon arrival to the GI lab patient was markedly confused and they were unable to obtain consent for the procedure. Patient was then sent to the ER for further further evaluation. History is very limited from the patient due to her current underlying mental state. I did speak with the staff at [facility]. History is limited from them as well. They report that at baseline patient does have periods of confusion and agitation. I also spoke with patient's [id number] who confirmed this as well and reports that she has been confused for the past several months. Per review of outpatient records patient has been having diarrhea, loss of appetite, and weight loss. Patient has been receiving Ceftin at the [facility] for a cellulitis however when the staff was questioned about the location of the cellulitis they were unsure. Patient currently offers no complaints and reports that she is just uncomfortable in the bed. Upon arrival to the ER patient was found to be hypotensive and on laboratory results found to have creatinine of 4.1. Blood pressure improved with 2 L of IV fluid. Physical Exam (per Admitting): General Appearance: WD/WN, no apparent distress Head: normocephalic, atraumatic Eyes: normal inspection, EOMI, sclerae normal ENT: hearing grossly normal, + pertinent finding (mucous membranes moist) Neck: supple, no JVD, trachea midline Respiratory/Chest: lungs clear, normal breath sounds, no respiratory distress Cardiovascular: regular rate, rhythm, no edema, normal peripheral pulses Abdomen/GI: normal bowel sounds, non tender, soft, no organomegaly Extremities/Musculoskelatal: normal inspection, no calf tenderness, normal capillary refill Neurologic/Psych: no motor/sensory deficits, alert, + disoriented (to time and siutation, very poor insight) Skin: + pertinent finding (amauri area, abdominal and breast folds excoriated) Hospital Course This is a 67 year old female with a PMH of C. 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 diff Comfort Measures Only 08/04 * received a call earlier today about patient's cessation of breathing * I entered the room, patient with no spontaneous breathing * no pulse, no heart sounds heard, pupils fixed and dilated * family is aware of patient's * Time of : 0755 on 08/04/2017 * Cause of : hyperchloremic metabolic acidosis, multifactorial anemia, recurrent C. diff colitis, severe dehydration * certificate signed 08/03 * last evening, hypotensive episodes persisted * board certified family physician spoke with the brother again - and it was decided that patient should be comfort measures only * I saw the patient this morning, nonverbal, she is moaning throughout my exam * skin covered in blistering wounds; bruises - presented this way from [facility] * morphine does not seem to be working * Fentanyl 25mcg patch added * Morphine ggt started at 3mg/hr * morphine 3mg q15mg for breakthrough * scopolamine patch added * Ativan PRN Acute Kidney Injury superimposed on CKD stage 3 Hypotension & Hyperchloremic Metabolic Acidosis + Lactic Acidosis secondary to Severe Dehydration/Diarrhea and Recurrent C. Diff Colitis 08/02 * hypotension worsened last evening; SBP in the 70s/80s * Propranolol was stopped and likely will need to be discontinued in the outpatient setting * she has been given multiple fluid boluses, MAP now >65 * will continue to give fluid resuscitation as needed, monitor in tele * further fluid management as per nephrology * will continue PO Vanco for her C. diff - diarrhea seems to be slowing down * acidosis and hyperchloremia seem to be resolving * monitor lactic acidosis, will recheck lactic acid in the afternoon 08/01 * Improving acidosis, improving chloride levels * creatinine is also improving, but slowly, currently at 2.7; patient not outputting much, uremic * bladder scan - minimal residual urine * appreciate nephrology input; continue current fluids * transfer to med/surg 07/31 * consulted nephrology, appreciate the input * the bicarb remained low; now started on sodium bicarb * creatinine slightly improving * diarrhea improving; though patient is refusing PO vanco; continue IV Flagyl 07/30 * creatinine is slightly improving, though not much; so I'll increase the IVF rate to 150mL/hr * will continue IV Flagyl - patient is very agitated and refusing medications this morning - will try oral Vanco throughout the day * appreciate GI input - outpatient EGD and colonoscopy for evaluation of anemia + diarrhea 07/29 * as per records, patient was seen by gastroenterology in May 2017 due to multiple complaints; including dysphagia, nausea/vomiting/diarrhea and weight loss * plan was made for EGD to evaluate dysphagia as well as colonoscopy due to sigmoid colon wall thickening * patient was at the endoscopy suite on 07/28, but was very confused and could not consent to the procedure; she was sent to the ED for further evaluation * patient was found to have severely dehydrated; creatinine up to > 4, baseline creat is around 1.1; she is hyperchloremic, low bicarb noted; likely secondary to diarrhea * she was found positive for c. diff in the stool - started on oral Vanco and IV Flagyl, which we can continue - GI consulted for further input * patient was found to be significantly hypotensive on admission - blood pressure improving now; will continue IV fluids running at 100mL/hr for now * creatinine improved to 3.64 on 07/29; recheck CBC and BMP at 1300 and then in AM Anemia 08/02 * hold Xarelto, she did not receive a dose of this yet * Hgb down to 6.7; will transfuse one unit pRBCs * recheck H/H four hours post-transfusion 08/01 * Hgb is closer to baseline around 7.4 * outpatient EGD and colonoscopy * will restart Xarelto soon 07/30 * Hgb down to 7.6 * patient baseline is likely around the 7.2-7.3 region * holding Xarelto, but will likely restart prior to discharge as this anemia is a chronic issue 07/29 * patient with a baseline anemia, unknown cause, possibly iron deficiency * in February 2017, as per outpatient records, her Hgb had been around 7.2-.7.3, which may be her baseline * currently, her Hgb is 8.2, but with severe dehydration, that may be hemoconcentrated * will monitor Hgb and transfuse if <7 * stool occult blood pending * hold Xarelto at this time Hx. of PE/DVT * hold Xarelto, SCDs for now GERD * continue PPI and Zantac Multiple Skin Excoriations Intertrigo * wound care nurse consulted Hypothyroidism * continue Synthroid Mood Disorder * continue duloxetine and buspirone DVT ppx * SCDs FULL CODE Total time spent on discharge = This includes examination of the patient, discharge planning, medication reconciliation, and communication with other providers. Discharge Instructions .
--- NOTE | 2017-08-05 13:47 | EDITING REQUIRED CODING QUERY ---
CODING QUERY To promote full compliance with coding requirements relating to patient care, provider participation is requested in all cases of meter reading clerk uncertainty. Please assist us with the question(s) below: Coding Question(s): Patient is a 67 year old female presenting for evaluation of altered mental status. Patient was found to be suffering from FARZANEH in the setting of diarrhea. In your clinical opinion is this patient being managed for: ( ) Encephalopathy ( ) Metabolic encephalopathy ( ) Not Agree ( ) Other explanation of clinical findings (Please Explain) ( ) Unable to determine (Please Define) Physician's Response(s): Thank you Kathrin Hernandez Principal Diagnosis: "_that condition established after study, to be chiefly responsible for occasioning the admission of the patient to the hospital for care." Co-Existing Principal Diagnosis: "_when two or more diagnoses equally meet the criteria for principal diagnosis as determined by the circumstances of admission, diagnostic work up, and/or therapy provided, and the Alphabetic Index, Tabular List, or another coding guideline does not provide sequencing direction, any one of the diagnoses may be sequenced first." "When the physician has documented what appears to be a current diagnosis in the body of the record, but has not included the diagnosis in the final diagnostic statement, the physician should be asked whether the diagnosis should be added." (Source [facility] 2 QTR90. p3-4)
[2017-08-06] MEDS ORDERED: FENTANYL PATCH REMOVE & WASTE SCH (09:14)
--- NOTE | 2017-08-07 06:48 | EDITING REQUIRED CODING QUERY ---
CODING QUERY To promote full compliance with coding requirements relating to patient care, provider participation is requested in all cases of receiver setter uncertainty. Please assist us with the question(s) below: Coding Question(s): Coding Question(s): Patient is a 67 year old female presenting for evaluation of altered mental status. Patient was found to be suffering from FARZANEH in the setting of diarrhea. In your clinical opinion is this patient being managed for: ( ) Encephalopathy ( X ) Metabolic encephalopathy ( ) Not Agree ( ) Other explanation of clinical findings (Please Explain) ( ) Unable to determine (Please Define) Physician's Response(s): Thank you Kathrin Hernandez Principal Diagnosis: "_that condition established after study, to be chiefly responsible for occasioning the admission of the patient to the hospital for care." Co-Existing Principal Diagnosis: "_when two or more diagnoses equally meet the criteria for principal diagnosis as determined by the circumstances of admission, diagnostic work up, and/or therapy provided, and the Alphabetic Index, Tabular List, or another coding guideline does not provide sequencing direction, any one of the diagnoses may be sequenced first." "When the physician has documented what appears to be a current diagnosis in the body of the record, but has not included the diagnosis in the final diagnostic statement, the physician should be asked whether the diagnosis should be added." (Source [facility] 2 QTR90. p3-4)
== END 2017-08-04 07:55 | disposition expired | DRG 371 ==
LOC: C.EDB 09:28 → UNDOADMIN 11:46 → C.2T 11:46 → ENRESERV 12:05 → C.MSN 08-01 13:12 → C.2T 08-01 13:12 → ENRESERV 08-02 05:13 → C.MSN 08-02 05:57 → C.2E 08-02 05:57 → ENRESERV 08-03 02:34 → C.2E 08-03 02:54 → C.4E 08-03 02:54
PROVIDERS: ADMIT Hospitalist; ATTEND Family Medicine
DX: A04.72 Enterocolitis due to Clostridium difficile, not specified as recurrent (principal); G93.41 Metabolic encephalopathy; E87.2 Acidosis; N17.9 Acute kidney failure, unspecified; Z68.41 Body mass index [BMI] 40.0-44.9, adult; Z51.5 Encounter for palliative care; N18.3 Chronic kidney disease, stage 3 (moderate); E78.5 Hyperlipidemia, unspecified; E03.9 Hypothyroidism, unspecified; E86.0 Dehydration; I12.9 Hypertensive chronic kidney disease with stage 1 through stage 4 chronic kidney disease, or unspecified chronic kidney disease; E83.42 Hypomagnesemia; D75.82 Heparin induced thrombocytopenia (HIT); K21.9 Gastro-esophageal reflux disease without esophagitis; I95.9 Hypotension, unspecified; L30.4 Erythema intertrigo; F39 Unspecified mood [affective] disorder; E66.9 Obesity, unspecified; D64.9 Anemia, unspecified; E83.51 Hypocalcemia; Z79.01 Long term (current) use of anticoagulants; Z88.8 Allergy status to other drugs, medicaments and biological substances; Z86.718 Personal history of other venous thrombosis and embolism; Z86.711 Personal history of pulmonary embolism; Z93.2 Ileostomy status; Z80.9 Family history of malignant neoplasm, unspecified; Z82.49 Family history of ischemic heart disease and other diseases of the circulatory system; Z82.3 Family history of stroke

== ENCOUNTER → 2017-07-28 | Day surgery (SDC) | payer OTHER ==
[2017-07-22 10:37] VITALS: Ht 152.4 cm; Wt 78.2 kg
--- NOTE | 2017-07-22 10:57 | PAT Medication Instructions ---
Service Date Jul 22, 2017. Current Home Medication List Acetaminophen (Tylenol Arthritis Ext Rel), 650 MG PO Q8H PRN for PRN Atorvastatin (Lipitor), 10 MG PO QPM Bisacodyl (Dulcolax), 1 SUPP CA UD PRN for CONSTIPATION Bumetanide (Bumex), 2 TAB PO QAM Buspirone Hcl (Buspirone Hcl), 10 MG PO TID Ceftriaxone Sodium (Rocephin), 500 MG IM BID Duloxetine HCl (Cymbalta), 2 CAP PO QAM Fluticasone Propionate (Nasal) (Flonase Allergy Relief), 1 SPRAY CLEMENCIA DAILY Levothyroxine Sodium (Levothyroxine Sodium), 1 TAB PO DAILY Loratadine (Claritin), 10 MG PO DAILY PRN for PRN Magnesium Hydroxide (Milk Of Magnesia), 30 ML PO UD PRN for NO BOWEL MOVEMENT Multivitamins/Minerals (Mvi With Minerals), 1 TAB PO QAM Omeprazole (Prilosec), 20 MG PO QAM Ondansetron Hcl (Zofran), 4 MG PO Q6H PRN for Nausea Pantoprazole (Protonix), 40 MG PO QAM Potassium Chloride (Micro-K Ext Rel), 10 MEQ PO 5X DAY Propranolol (Inderal), 10 MG PO BID PRN for Anxiety Ranitidine (Zantac), 150 MG PO BID Rivaroxaban (Xarelto), 20 MG PO DAILY Sodium Phosphate/Biphosphate (Fleet Enema), 1 EA CA DAILY PRN for CONSTIPATION [Calcium Carbonate], 750 MG PO BID [Doxepin], 3 MG PO HS [Vitamin D2], 50,000 UNIT PO THURS Medication Instructions For Your Scheduled Surgery -Follow prescriber's instructions for: Rivaroxaban (Xarelto), 20 MG PO DAILY -Continue as directed: [Vitamin D2], 50,000 UNIT PO THURS - Hold the following medications the morning of surgery: Bumetanide (Bumex), 2 TAB PO QAM Bisacodyl (Dulcolax), 1 SUPP CA UD PRN for CONSTIPATION Loratadine (Claritin), 10 MG PO DAILY PRN for PRN Magnesium Hydroxide (Milk Of Magnesia), 30 ML PO UD PRN for NO BOWEL MOVEMENT Multivitamins/Minerals (Mvi With Minerals), 1 TAB PO QAM Potassium Chloride (Micro-K Ext Rel), 10 MEQ PO 5X DAY Sodium Phosphate/Biphosphate (Fleet Enema), 1 EA CA DAILY PRN for CONSTIPATION [Calcium Carbonate], 750 MG PO BID - Take the following medications the morning of surgery with a sip of water: Acetaminophen (Tylenol Arthritis Ext Rel), 650 MG PO Q8H PRN for PRN (if needed , can be taken up to four hours before procedure) Buspirone Hcl (Buspirone Hcl), 10 MG PO TID Ceftriaxone Sodium (Rocephin), 500 MG IM BID Duloxetine HCl (Cymbalta), 2 CAP PO QAM Fluticasone Propionate (Nasal) (Flonase Allergy Relief), 1 SPRAY [place] DAILY Levothyroxine Sodium (Levothyroxine Sodium), 1 TAB PO DAILY Omeprazole (Prilosec), 20 MG PO QAM Ondansetron Hcl (Zofran), 4 MG PO Q6H PRN for Nausea (if needed) Pantoprazole (Protonix), 40 MG PO QAM Propranolol (Inderal), 10 MG PO BID PRN for Anxiety (if needed) Ranitidine (Zantac), 150 MG PO BID - Take the following medications as scheduled the night before surgery: Acetaminophen (Tylenol Arthritis Ext Rel), 650 MG PO Q8H PRN for PRN (if needed) Atorvastatin (Lipitor), 10 MG PO QPM Bisacodyl (Dulcolax), 1 SUPP CA UD PRN for CONSTIPATION (if needed) Buspirone Hcl (Buspirone Hcl), 10 MG PO TID Ceftriaxone Sodium (Rocephin), 500 MG IM BID Loratadine (Claritin), 10 MG PO DAILY PRN for PRN (if needed) Magnesium Hydroxide (Milk Of Magnesia), 30 ML PO UD PRN for NO BOWEL MOVEMENT ( if needed) Ondansetron Hcl (Zofran), 4 MG PO Q6H PRN for Nausea (if needed) Potassium Chloride (Micro-K Ext Rel), 10 MEQ PO 5X DAY Propranolol (Inderal), 10 MG PO BID PRN for Anxiety (if needed) Ranitidine (Zantac), 150 MG PO BID Sodium Phosphate/Biphosphate (Fleet Enema), 1 EA CA DAILY PRN for CONSTIPATION ( if needed) [Calcium Carbonate], 750 MG PO BID [Doxepin], 3 MG PO HS If you have any questions please call us at [phone] or [phone] or [phone]
[~2017-07-28] VITALS: Ht 152.4 cm; Wt 78.2 kg
[~2017-07-28] MED LIST changes: +BISA10SU3 PR; +CALC1CHW90 PO; +CEFT1INJ26 IM; +CEFU250T15 PO; +DOXE1TAB2 PO; +DOXEPIN PO; +ERGO500037 PO; -FENTANYL CITRATE INJ 50 MCG/1 ML 2 ML VIAL ONE; +LEVO200T PO; -LIDOCAINE HCL 2% 2 ML VIAL (20MG/ML) ONE; -MAGN400T6 PO; +MOML PO; +NUTR-238 PO; -OMEPRAZOLE PO; +ONDA4TAB46 PO; -OSEL75CA23 PO; -OXYC-164 PO; +PANT40TA PO; +POTA10CA28 PO; -POTA8CAP6 PO; +PRLSR20 PO; -PROPOFOL IV EMULSION 10 MG/ML 20 ML VIAL IV ONE; -QUET1TAB34 PO; +SODIENE PR; -SODIUM CHLORIDE 0.9% 500ML 500 ML IV ONE
== END | disposition home or self-care (01) ==
LOC: C.GI 08:42
PROVIDERS: ATTEND Internal Medicine Gastroenterology
DX: K52.9 Noninfective gastroenteritis and colitis, unspecified (principal)